=== PATIENT | female | born 1935 | race Caucasian/White ===

== ENCOUNTER → 2016-07-31 | Outpatient (CLI) | payer OTHER, MEDICARE ==
[~2016-07-31] MED LIST: ASPI325T39 PO; CHOLTAB3 PO; CLOP1TAB15 PO; HYD50 PO; MCRK20 PO; METO25TA56 PO; NITR0.4S UT; OMEG10007 PO; SIMV40TA2 PO
[2016-07-31 12:34] LABS: BASO % 0.8 %; BASO ABS # 0.05 K/uL (0-0.2); COMPLETE YES; EOS % 1.8 %; HEMATOCRIT 40.6 % (37-47); IG% 0.3 %; LYMPH % 28.2 %; LYMPH ABS # 1.76 K/uL (1.2-3.4); MEAN CELL VOLUME 89.2 fL (80-100); MEAN CORPUSCULAR HEMOGLOBIN 29.2 pg (25-34); MEAN CORPUSCULAR HGB CONC 32.8 g/dl (32-36); MEAN PLATELET VOLUME 11.7 fL (7.4-10.4); MONO % 9.1 %; NEUT % 59.8 %; PLATELET COUNT 188 K/uL (130-400); RED BLOOD COUNT 4.55 M/uL (4.2-5.4); WHITE BLOOD COUNT 6.24 K/uL (4.8-10.8)
[2016-07-31 15:36] LABS: ESTIMATED AVERAGE GLUCOSE 126 mg/dl; HA1C FLAG Normal (Normal)
[2016-07-31 17:57] LABS: ALB/GLOB RATIO 1.2 (0.9-2); ALKALINE PHOSPHATASE 56 U/L (45-117); AST/SGOT 21 U/L (15-37); BLOOD UREA NITROGEN 20 mg/dl (7-18); BUN/CREATININE RATIO 29.6 (10-20); CALCIUM 9.6 mg/dl (8.5-10.1); CARBON DIOXIDE 28 mmol/L (21-32); CHLORIDE 105 mmol/L (98-107); CREATININE 0.69 mg/dl (0.60-1.20); GLUCOSE 101 mg/dl (70-99); POTASSIUM 4.2 mmol/L (3.5-5.1); SODIUM 139 mmol/L (136-145)
[2016-07-31 18:09] LABS: ALT/SGPT 18 U/L (12-78); CHOLESTEROL 153 mg/dl (0-200); CHOLESTEROL/HDL RATIO 2.7; HDL CHOLESTEROL 57 mg/dl; LDL CHOLESTEROL CALCULATED 61 mg/dl; TRIGLYCERIDES 176 mg/dl (0-150); VERY LOW DENSITY LIPOPROT CALC 35 mg/dl
--- NOTE | 2016-08-15 11:46 | CODING QUERY MEDICAL NECESSITY ---
CQSUPPORTING DIAGNOSIS NEEDED A supporting diagnosis is required for the test/procedure performed on this patient in order for us to be reimbursed by the patient's insurance. Please provide a supporting diagnosis for the following test/procedure listed below next to the test name along with your signature. *If there is no additional diagnosis for this patient that would support the following test/procedure please document that below next to the test/procedure. Test(s)/Procedure(s) that require a supporting diagnosis: DOS 07/31/16 VITAMIN D VITAMIN B12 Provider Signature: Date: Thank you Romi [facility] Once completed, please kindly fax back to [phone] For questions please call [phone]
== END | disposition home or self-care (01) ==
LOC: C.LABPBG 11:22
PROVIDERS: ATTEND Internal Medicine
DX: I70.0 Atherosclerosis of aorta (principal); R73.09 Other abnormal glucose

== ENCOUNTER → 2017-07-11 | Outpatient (CLI) | payer OTHER, MEDICARE ==
[2017-07-11 14:08] LABS: BASO % 0.5 %; BASO ABS # 0.03 K/uL (0-0.2); EOS % 0.8 %; EOS ABS # 0.05 K/uL (0-0.5); HEMATOCRIT 40.2 % (37-47); HEMOGLOBIN 13.3 g/dL (12.0-16.0); IG# 0.01 K/uL (0.00-0.02); LYMPH % 33.6 %; MEAN CELL VOLUME 89.7 fL (80-100); MEAN CORPUSCULAR HEMOGLOBIN 29.7 pg (25-34); MEAN CORPUSCULAR HGB CONC 33.1 g/dl (32-36); MEAN PLATELET VOLUME 11.8 fL (7.4-10.4); MONO % 7.7 %; MONO ABS # 0.48 K/uL (0.11-0.59); NEUT % 57.2 %; NEUT ABS # 3.58 K/uL (1.4-6.5); PLATELET COUNT 193 K/uL (130-400); RED CELL DISTRIBUTION WIDTH CV 12.9 % (11.5-14.5); WHITE BLOOD COUNT 6.25 K/uL (4.8-10.8)
[2017-07-11 16:04] LABS: HEMOGLOBIN A1C 6.3 % (4.5-5.6)
[2017-07-11 16:26] LABS: ALBUMIN 4.2 gm/dl (3.4-5.0); ALT/SGPT 22 U/L (12-78); AST/SGOT 26 U/L (15-37); BLOOD UREA NITROGEN 19 mg/dl (7-18); CALCIUM 9.8 mg/dl (8.5-10.1); CARBON DIOXIDE 28 mmol/L (21-32); CREATININE 0.77 mg/dl (0.60-1.20); GLUCOSE 122 mg/dl (70-99); SODIUM 139 mmol/L (136-145)
[2017-07-11 16:36] LABS: ALKALINE PHOSPHATASE 60 U/L (45-117); TOTAL PROTEIN 7.7 gm/dl (6.4-8.2)
== END | disposition home or self-care (01) ==
LOC: C.LABPBG 07:58
PROVIDERS: ATTEND Internal Medicine
DX: Z00.00 Encounter for general adult medical examination without abnormal findings (principal); I10 Essential (primary) hypertension; G31.84 Mild cognitive impairment of uncertain or unknown etiology; G25.81 Restless legs syndrome; M47.814 Spondylosis without myelopathy or radiculopathy, thoracic region; R73.09 Other abnormal glucose

== ENCOUNTER 2024-02-15 14:08 | Inpatient (IN) ==
--- NOTE | 2024-02-15 14:33 | Emergency Department Note ---
Impression & Plan Sepsis ADMIT ED Provider Note HPI: History obtained from patient's daughter at the bedside. The patient is a 88-year-old female with history of dementia, who presents the emergency department from [facility] with a chief complaint of hypotension and fever. Patient presents with her daughter at the bedside, the [facility], she had a fall out of bed earlier this morning and then later in the afternoon her vital signs were taken and showed that she was hypotensive and tachycardic. Patient was therefore transported to the ER to be assessed for possible sepsis. Patient was given IV fluids en route via EMS and by the time she arrived here to the ER her blood pressure was stable, heart rate is mildly tachycardic. ROS: - Per HPI Differential Diagnosis: Sepsis, pneumonia, urinary tract infection, intracranial hemorrhage, stroke, acute kidney injury/dehydration, amongst other potential pathologies. *Outpatient medications and allergy history reviewed. PE: General: Alert to verbal stimuli, otherwise listless appearing, frail-appearing HEENT: Normocephalic, trachea midline Eyes: Extraocular eye movement is intact, no scleral erythema Pulmonary: Clear to auscultation bilaterally, no wheezing Cardio: Regular rate and rhythm GI: Abdomen is soft to palpation : No suprapubic tenderness MSK: No evidence of trauma or malformation of the extremities, no edema Skin: No evidence of rash Neuro: Alert, responds to verbal commands, no obvious focal deficits Psychiatric: Cooperative INDEPENDENT INTERPRETATIONS: engine monitor: (As interpreted by myself): - An order was placed for continuous cardiac monitoring - Patient was noted to be in sinus tachycardia with a rate of 115 EKG: (As interpreted by myself): Rate: 107 Rhythm: Sinus tachycardia Intervals: Within normal limits ST changes: No ST elevation Time: 1542 Chest x-ray: (As interpreted by myself): No focal infiltrate Interventions provided in ED: -IV fluid bolus, IV cefepime Medical Decision Making: IV was established and lab work obtained, patient was placed on shelter monitor. Patient was given 30 cc/kg of IV fluid for reported hypotension and [facility] with presenting tachycardia and concern for sepsis. Lab work shows a significant leukocytosis at 39.15, hemoglobin is stable at 11.8, platelet count is normal. CMP shows evidence of an acute kidney injury with creatinine elevated at 2.39 (patient has normal baseline) BUN is elevated at 47, lactic acid is 4.4, initial high-sensitivity troponin level is markedly elevated at 1301. EKG does not show any acute ischemic changes per my interpretation, there is no evidence of ST elevation [place]. Procalcitonin is elevated at 75.9, urinalysis shows trace ketones, 3+ blood, 3+ leukocyte esterase and significant pyuria without obvious contamination. Will send for culture and the patient was treated with IV cefepime here in the ED. I suspect the patient is septic probably from urinary tract infection and this is the source of her multiorgan dysfunction. CT imaging of the head was obtained that does not show any evidence of any acute intracranial process. I did discuss all the above findings with the patient's daughter and other family members who are at the bedside on my reevaluation. The patient remains mildly tachycardic with blood pressure greater than 100 systolic on my reassessment. She is frail appearing, given her lab work findings I do of concern that she may decompensate quickly for multiorgan failure. I discussed this with the patient's daughter, she states the patient is DNR/DNI CODE STATUS but they would like interventions up to that point to see if the patient may recover. I discussed all of this with the admitting hospitalist service and the patient was placed for admission in guarded condition to the service of Dr. Padgett. Consultants/Discussions held with other healthcare providers: -HospitalistDr. Padgett Disposition discussion held by myself with: -Patient family at the bedside including the patient's daughter * CRITICAL CARE TIME: ( 49 ) minutes -Management of patient with urosepsis with multiorgan failure requiring aggressive IV fluid resuscitation and initiation of IV antibiotics, time spent at the bedside, interpretation of diagnostic studies, discussion with family in regards to the patient's condition and CODE STATUS. Discussion with other healthcare providers and arrangement of admission. Diagnosis: 1. Urinary tract infection, acute 2. Leukocytosis, acute 3. Lactic acidosis, acute 4. Elevated high-sensitivity troponin, acute 5. Acute kidney injury 7. Elevated procalcitonin 8. CODE STATUS updated to DNR/DNI following discussion with family Disposition: Admission Tomás Orozco DO Emergency Medicine Past Med/Surg History Problem List (Updated 02/15/24 @ 18:42 by Tomás Orozco DO) Sepsis (Acute) Acute kidney injury Urinary tract infection Sepsis Hypercalcemia Dementia (Acute) Diabetes mellitus (Chronic) Mild aortic stenosis (Chronic) Mild cognitive impairment (Chronic) Sensorineural hearing loss of both ears (Chronic) Vitamin D deficiency (Chronic) HTN (hypertension) (Chronic) Hypokalemia (Chronic) Right leg weakness (Chronic) Medical History (Updated 02/15/24 @ 18:42 by Tomás Orozco DO) Stroke Surgical History History of total abdominal hysterectomy and bilateral salpingo-oophorectomy History of tonsillectomy Family History Son No problems noted. Sister Breast cancer Diabetes Mother Dementia Denies family history of Ovarian cancer Prostate cancer Myocardial infarction Colorectal cancer Social History Smoking Status: Never smoker Second Hand Exposure: No; Do You Dip or Chew Tobacco: No; Hx Alcohol Use: No Hx Substance Use: No Preferred Language: Thai Communication Ability: Effective Visual Impairment: No Limitations Hearing Ability: Use of Hearing Aid Beliefs That Will Affect Care: None marital status: Current Living Situation: Alone, [facility] Current Living Situation Comment: [facility] current occupational status: retired Feels Safe at Home: Yes Diet: regular Diet Comment: regular caffeine: Yes during the past year weight has: remained stable Dental Care, Regularly: No Physical Activity Frequency: Does not Exercise Seatbelt Use: always Sunscreen Use: Yes Allergies Allergies Allergy/AdvReac Type Severity Reaction Status Date / Time gabapentin Allergy Verified 06/06/23 13:32 Home Meds Home Medications Medication Instructions Recorded Confirmed cholecalciferol (vitamin D3) 25 1,000 units PO DAILY 01/18/19 02/15/24 mcg (1,000 unit) capsule donepezil 10 mg tablet 10 mg PO HS 01/18/19 02/15/24 omega-3 fatty acids 1,000 mg 2,000 mg PO DAILY 01/18/19 02/15/24 capsule (Fish Oil Concentrate) potassium chloride 20 mEq 40 meq PO DAILY 06/06/23 02/15/24 tablet,extended release(part/cryst) (Klor-Con M) Previous Rx's Medication Instructions Recorded metoprolol tartrate 25 mg tablet 12.5 mg (1/2 x 25 mg) PO BID #90 05/21/19 tabs ropinirole 0.5 mg tablet 0.5 mg PO HS #90 tabs 05/21/19 cyanocobalamin (vitamin B-12) 1,000 mcg PO DAILY #30 caps 08/11/20 1,000 mcg capsule clopidogrel 75 mg tablet (Plavix) 75 mg PO DAILY #30 tabs 03/30/21 metformin 500 mg 24 hr 500 mg PO DAILY #90 tabs 08/10/22 tablet,extended release (gastric retention) simvastatin 40 mg tablet 40 mg PO HS #90 tabs 08/10/22 acetaminophen 500 mg capsule 500 mg PO Q8H PRN fever / fever 03/05/23 #90 caps hydrochlorothiazide 25 mg tablet 50 mg (2 x 25 mg) PO DAILY #90 tabs 06/06/23 Results & Data (ED) Vital Signs Vital Signs - 24 hr 02/15/24 14:18 02/15/24 14:22 02/15/24 14:29 Temperature 36.1 C L Temperature Source Axillary Pulse Rate 110 H 109 H 114 H Pulse Rate [Apical] Pulse Rate from SpO2 Sensor Respiratory Rate 24 18 Respiratory Effort / Characteristics Respiratory Depth Blood Pressure 113/62 Blood Pressure [Right Arm] Blood Pressure Mean 79 Blood Pressure Mean [Right Arm] Pulse Oximetry 97 Oxygen Delivery Method Room Air Sepsis Recent Fever Within 48 Hours Yes Sepsis New/Unexplained Change in Mental Status No Sepsis Action Taken by Nursing No Action Required 02/15/24 14:30 02/15/24 14:39 02/15/24 14:45 Temperature Temperature Source Pulse Rate 107 H Pulse Rate [Apical] 107 H Pulse Rate from SpO2 Sensor 107 H Respiratory Rate 25 H 18 Respiratory Effort / Characteristics Respiratory Depth Blood Pressure Blood Pressure [Right Arm] 93/53 L Blood Pressure Mean Blood Pressure Mean [Right Arm] 66 Pulse Oximetry 98 94 Oxygen Delivery Method Room Air Room Air Sepsis Recent Fever Within 48 Hours Sepsis New/Unexplained Change in Mental Status Sepsis Action Taken by Nursing 02/15/24 14:48 02/15/24 15:18 02/15/24 15:19 Temperature Temperature Source Pulse Rate 113 H 105 H Pulse Rate [Apical] Pulse Rate from SpO2 Sensor 116 H 105 H Respiratory Rate 32 H 29 H Respiratory Effort / Characteristics Respiratory Depth Blood Pressure 101/60 Blood Pressure [Right Arm] Blood Pressure Mean 84 Blood Pressure Mean [Right Arm] Pulse Oximetry 94 98 Oxygen Delivery Method Sepsis Recent Fever Within 48 Hours Sepsis New/Unexplained Change in Mental Status Sepsis Action Taken by Nursing 02/15/24 15:24 02/15/24 15:25 02/15/24 15:31 Temperature Temperature Source Pulse Rate 108 H Pulse Rate [Apical] 113 H Pulse Rate from SpO2 Sensor 105 H Respiratory Rate 22 20 Respiratory Effort / Characteristics Respiratory Depth Normal Blood Pressure Blood Pressure [Right Arm] 101/60 Blood Pressure Mean 61 Blood Pressure Mean [Right Arm] 73 Pulse Oximetry 97 Oxygen Delivery Method Room Air Sepsis Recent Fever Within 48 Hours Sepsis New/Unexplained Change in Mental Status Sepsis Action Taken by Nursing 02/15/24 15:31 02/15/24 15:31 02/15/24 15:36 Temperature Temperature Source Pulse Rate 110 H Pulse Rate [Apical] Pulse Rate from SpO2 Sensor 110 H Respiratory Rate 21 Respiratory Effort / Characteristics Respiratory Depth Blood Pressure Blood Pressure [Right Arm] Blood Pressure Mean 61 61 Blood Pressure Mean [Right Arm] Pulse Oximetry 99 Oxygen Delivery Method Sepsis Recent Fever Within 48 Hours Sepsis New/Unexplained Change in Mental Status Sepsis Action Taken by Nursing 02/15/24 15:42 02/15/24 15:45 02/15/24 15:57 Temperature Temperature Source Pulse Rate 112 H 110 H Pulse Rate [Apical] Pulse Rate from SpO2 Sensor 106 H 105 H Respiratory Rate 26 H 20 Respiratory Effort / Characteristics Respiratory Depth Blood Pressure 115/92 Blood Pressure [Right Arm] Blood Pressure Mean 102 Blood Pressure Mean [Right Arm] Pulse Oximetry 100 94 Oxygen Delivery Method Sepsis Recent Fever Within 48 Hours Sepsis New/Unexplained Change in Mental Status Sepsis Action Taken by Nursing 02/15/24 16:00 02/15/24 16:06 02/15/24 16:15 Temperature Temperature Source Pulse Rate 118 H Pulse Rate [Apical] Pulse Rate from SpO2 Sensor 110 H Respiratory Rate 23 Respiratory Effort / Characteristics Respiratory Depth Blood Pressure 106/45 L 92/75 L Blood Pressure [Right Arm] Blood Pressure Mean 63 81 Blood Pressure Mean [Right Arm] Pulse Oximetry 90 Oxygen Delivery Method Sepsis Recent Fever Within 48 Hours Sepsis New/Unexplained Change in Mental Status Sepsis Action Taken by Nursing 02/15/24 16:27 02/15/24 16:28 02/15/24 16:28 Temperature Temperature Source Pulse Rate 122 H Pulse Rate [Apical] Pulse Rate from SpO2 Sensor 112 H Respiratory Rate 28 H Respiratory Effort / Characteristics Respiratory Depth Blood Pressure 102/82 102/82 Blood Pressure [Right Arm] Blood Pressure Mean 92 92 Blood Pressure Mean [Right Arm] Pulse Oximetry 91 Oxygen Delivery Method Sepsis Recent Fever Within 48 Hours Sepsis New/Unexplained Change in Mental Status Sepsis Action Taken by Nursing 02/15/24 16:30 02/15/24 16:30 02/15/24 16:33 Temperature Temperature Source Pulse Rate 115 H 114 H Pulse Rate [Apical] 115 H Pulse Rate from SpO2 Sensor 120 H 110 H Respiratory Rate 25 H 32 H 23 Respiratory Effort / Characteristics Short of Breath Respiratory Depth Blood Pressure 118/56 L Blood Pressure [Right Arm] 118/56 L Blood Pressure Mean 76 Blood Pressure Mean [Right Arm] 76 Pulse Oximetry 91 90 Oxygen Delivery Method Room Air Sepsis Recent Fever Within 48 Hours Sepsis New/Unexplained Change in Mental Status Sepsis Action Taken by Nursing 02/15/24 16:42 02/15/24 16:45 02/15/24 16:46 Temperature Temperature Source Pulse Rate 122 H Pulse Rate [Apical] 120 H Pulse Rate from SpO2 Sensor Respiratory Rate 32 H 26 H Respiratory Effort / Characteristics Respiratory Depth Blood Pressure 98/71 L Blood Pressure [Right Arm] 98/71 L Blood Pressure Mean 84 Blood Pressure Mean [Right Arm] 80 Pulse Oximetry 91 Oxygen Delivery Method Room Air Sepsis Recent Fever Within 48 Hours Sepsis New/Unexplained Change in Mental Status Sepsis Action Taken by Nursing 02/15/24 16:51 02/15/24 17:00 02/15/24 17:00 Temperature Temperature Source Pulse Rate 133 H 120 H Pulse Rate [Apical] 118 H Pulse Rate from SpO2 Sensor Respiratory Rate 23 28 H 31 H Respiratory Effort / Characteristics Respiratory Depth Blood Pressure Blood Pressure [Right Arm] 114/58 L Blood Pressure Mean Blood Pressure Mean [Right Arm] 76 Pulse Oximetry 91 96 Oxygen Delivery Method Sepsis Recent Fever Within 48 Hours Sepsis New/Unexplained Change in Mental Status Sepsis Action Taken by Nursing 02/15/24 17:06 02/15/24 17:06 02/15/24 17:15 Temperature Temperature Source Pulse Rate 117 H Pulse Rate [Apical] Pulse Rate from SpO2 Sensor 112 H Respiratory Rate 25 H Respiratory Effort / Characteristics Respiratory Depth Blood Pressure 79/52 L 110/64 Blood Pressure [Right Arm] Blood Pressure Mean 54 79 Blood Pressure Mean [Right Arm] Pulse Oximetry Oxygen Delivery Method Sepsis Recent Fever Within 48 Hours Sepsis New/Unexplained Change in Mental Status Sepsis Action Taken by Nursing 02/15/24 17:18 02/15/24 17:24 02/15/24 17:30 Temperature Temperature Source Pulse Rate 116 H 118 H Pulse Rate [Apical] Pulse Rate from SpO2 Sensor 114 H 112 H Respiratory Rate 28 H 22 Respiratory Effort / Characteristics Respiratory Depth Blood Pressure 101/62 Blood Pressure [Right Arm] Blood Pressure Mean 84 Blood Pressure Mean [Right Arm] Pulse Oximetry 98 99 Oxygen Delivery Method Sepsis Recent Fever Within 48 Hours Sepsis New/Unexplained Change in Mental Status Sepsis Action Taken by Nursing 02/15/24 17:45 02/15/24 17:57 02/15/24 18:00 Temperature Temperature Source Pulse Rate 118 H Pulse Rate [Apical] 119 H 115 H Pulse Rate from SpO2 Sensor 118 H Respiratory Rate 27 H 20 Respiratory Effort / Characteristics Respiratory Depth Blood Pressure Blood Pressure [Right Arm] 103/54 L 102/55 L Blood Pressure Mean Blood Pressure Mean [Right Arm] 70 70 Pulse Oximetry 94 93 93 Oxygen Delivery Method Room Air Room Air Sepsis Recent Fever Within 48 Hours Sepsis New/Unexplained Change in Mental Status Sepsis Action Taken by Nursing 02/15/24 18:00 02/15/24 18:00 02/15/24 18:08 Temperature Temperature Source Pulse Rate 117 H 86 Pulse Rate [Apical] Pulse Rate from SpO2 Sensor 117 H Respiratory Rate 27 H Respiratory Effort / Characteristics Respiratory Depth Blood Pressure 102/55 L Blood Pressure [Right Arm] Blood Pressure Mean 64 Blood Pressure Mean [Right Arm] Pulse Oximetry 92 Oxygen Delivery Method Sepsis Recent Fever Within 48 Hours Sepsis New/Unexplained Change in Mental Status Sepsis Action Taken by Nursing Laboratory Data 02/15/24 15:17 02/15/24 15:17 Lab Results 02/15/24 02/15/24 02/15/24 Range/Units 15:17 15:49 15:53 WBC 39.15 H* (4.8-10.8) K/ul RBC 4.10 L (4.20-5.40) M/uL Hgb 11.8 L (12.0-16.0) g/dl Hct 35.6 L (37.0-47.0) % MCV 86.8 (80.0-100.0) fL MCH 28.8 (25.0-34.0) pg MCHC 33.1 (32.0-36.0) g/dL RDW Std Deviation 43.3 (36.4-46.3) fL RDW Coeff of Ruben 13.6 (11.5-14.5) % Plt Count 163 (130-400) K/uL MPV 11.7 (9.4-12.4) fL Immature Gran % (Auto) 1.7 % Neut % (Auto) 90.8 % Lymph % (Auto) 2.2 % Reeves % (Auto) 5.1 % Eos % (Auto) 0.0 % Baso % (Auto) 0.2 % Neut # (Auto) 35.55 H (1.40-6.50) K/uL Lymph # (Auto) 0.85 L (1.20-3.40) K/uL Reeves # (Auto) 1.98 H (0.11-0.59) K/uL Eos # (Auto) 0.01 (0.00-0.50) K/uL Baso # (Auto) 0.09 (0.00-0.20) K/uL Immature Gran # (Auto) 0.67 H (0.01-0.20) K/uL Sodium 138 (136-145) mmol/L Potassium 3.5 (3.5-5.1) mmol/L Chloride 102 (98-107) mmol/L Carbon Dioxide 25 (21-32) mmol/L Anion Gap 11 (3-11) BUN 47 H (6-23) mg/dl Creatinine 2.39 H (0.6-1.2) mg/dl Est Cr Clr Drug Dosing 12.7 ml/min eGFR 18.93 BUN/Creatinine Ratio 19.7 (10-20) Glucose 226 H (70-99(Fasting)) mg/dl Lactate 4.4 H* (0.4-2.0) mmol/L Calcium 9.2 (8.6-10.3) mg/dl Magnesium 1.6 L (1.7-2.4) mg/dl Total Bilirubin 0.5 (0.2-1.0) mg/dl Direct Bilirubin 0.1 (0-0.2) mg/dl AST 30 (13-39) U/L ALT 15 (7-52) U/L Alkaline Phosphatase 57 (34-104) U/L Troponin I High Sens 1301.1 H* (0-14) pg/ml Total Protein 6.5 (6.0-8.3) gm/dl Albumin 3.6 (3.4-5.0) gm/dl Procalcitonin 75.90 H (0-0.5) ng/ml Urine Color Yellow Urine Appearance Turbid A (Clear) Urine pH 7.0 (4.5-7.5) Ur Specific Jefferson 1.019 (1.000-1.030) Urine Protein 3+ H (Negative) Urine Glucose (UA) Negative (Negative) Urine Ketones Trace H (Negative) Urine Blood 3+ H (Negative) Urine Nitrite Negative (Negative) Urine Bilirubin Negative (Negative) Urine Urobilinogen Negative (Negative) Ur Leukocyte Esterase 3+ H (Negative) Urine WBC (Auto) >50 H (0-5) /hpf Urine RBC (Auto) 11-20 H (0-2) /hpf U Hyaline Cast (Auto) >20 H (0-2) /lpf U Epithel Cells (Auto) 0-2 (0-2) /hpf Urine Bacteria (Auto) 4+ H (None Seen) Urine Yeast Present A (None Prsent) Adenovirus (PCR) Not Detected (NotDetected) B. pertussis DNA (PCR) Not Detected (NotDetected) B.parapertussis DNA PCR Not Detected (NotDetected) C. pneumoniae DNA (PCR) Not Detected (NotDetected) Coronavirus OC43 (PCR) Not Detected (NotDetected) Coronavirus HKU1 (PCR) Not Detected (NotDetected) Coronavirus 229E (PCR) Not Detected (NotDetected) SARS-CoV-2 (PCR) Not Detected (NotDetected) Coronavirus NL63 (PCR) Not Detected (NotDetected) Human Metapneumovir PCR Not Detected (NotDetected) Influenza Type A (PCR) Not Detected (NotDetected) Influenza Type B (PCR) Not Detected (NotDetected) M. pneumoniae (PCR) Not Detected (NotDetected) Parainfluenza 1 (PCR) Not Detected (NotDetected) Parainfluenza 2 (PCR) Not Detected (NotDetected) Parainfluenza 3 (PCR) Not Detected (NotDetected) Parainfluenza 4 (PCR) Not Detected (NotDetected) RSV (PCR) Not Detected (NotDetected) Entero/Rhino (PCR) Not Detected (NotDetected) 02/15/24 Range/Units 17:47 WBC (4.8-10.8) K/ul RBC (4.20-5.40) M/uL Hgb (12.0-16.0) g/dl Hct (37.0-47.0) % MCV (80.0-100.0) fL MCH (25.0-34.0) pg MCHC (32.0-36.0) g/dL RDW Std Deviation (36.4-46.3) fL RDW Coeff of Ruben (11.5-14.5) % Plt Count (130-400) K/uL MPV (9.4-12.4) fL Immature Gran % (Auto) % Neut % (Auto) % Lymph % (Auto) % Reeves % (Auto) % Eos % (Auto) % Baso % (Auto) % Neut # (Auto) (1.40-6.50) K/uL Lymph # (Auto) (1.20-3.40) K/uL Reeves # (Auto) (0.11-0.59) K/uL Eos # (Auto) (0.00-0.50) K/uL Baso # (Auto) (0.00-0.20) K/uL Immature Gran # (Auto) (0.01-0.20) K/uL Sodium (136-145) mmol/L Potassium (3.5-5.1) mmol/L Chloride (98-107) mmol/L Carbon Dioxide (21-32) mmol/L Anion Gap (3-11) BUN (6-23) mg/dl Creatinine (0.6-1.2) mg/dl Est Cr Clr Drug Dosing ml/min eGFR BUN/Creatinine Ratio (10-20) Glucose (70-99(Fasting)) mg/dl Lactate 2.1 H* (0.4-2.0) mmol/L Calcium (8.6-10.3) mg/dl Magnesium (1.7-2.4) mg/dl Total Bilirubin (0.2-1.0) mg/dl Direct Bilirubin (0-0.2) mg/dl AST (13-39) U/L ALT (7-52) U/L Alkaline Phosphatase (34-104) U/L Troponin I High Sens 1159.7 H* (0-14) pg/ml Total Protein (6.0-8.3) gm/dl Albumin (3.4-5.0) gm/dl Procalcitonin (0-0.5) ng/ml Urine Color Urine Appearance (Clear) Urine pH (4.5-7.5) Ur Specific Jefferson (1.000-1.030) Urine Protein (Negative) Urine Glucose (UA) (Negative) Urine Ketones (Negative) Urine Blood (Negative) Urine Nitrite (Negative) Urine Bilirubin (Negative) Urine Urobilinogen (Negative) Ur Leukocyte Esterase (Negative) Urine WBC (Auto) (0-5) /hpf Urine RBC (Auto) (0-2) /hpf U Hyaline Cast (Auto) (0-2) /lpf U Epithel Cells (Auto) (0-2) /hpf Urine Bacteria (Auto) (None Seen) Urine Yeast (None Prsent) Adenovirus (PCR) (NotDetected) B. pertussis DNA (PCR) (NotDetected) B.parapertussis DNA PCR (NotDetected) C. pneumoniae DNA (PCR) (NotDetected) Coronavirus OC43 (PCR) (NotDetected) Coronavirus HKU1 (PCR) (NotDetected) Coronavirus 229E (PCR) (NotDetected) SARS-CoV-2 (PCR) (NotDetected) Coronavirus NL63 (PCR) (NotDetected) Human Metapneumovir PCR (NotDetected) Influenza Type A (PCR) (NotDetected) Influenza Type B (PCR) (NotDetected) M. pneumoniae (PCR) (NotDetected) Parainfluenza 1 (PCR) (NotDetected) Parainfluenza 2 (PCR) (NotDetected) Parainfluenza 3 (PCR) (NotDetected) Parainfluenza 4 (PCR) (NotDetected) RSV (PCR) (NotDetected) Entero/Rhino (PCR) (NotDetected) Administered Medications Discontinued Medications Sodium Chloride (Nss) 1,000 mls @ 999 mls/hr IV .Q1H1M DENNIS Stop: 02/15/24 15:30 Last Infusion: 02/15/24 15:51 Dose: Infused Documented By: Admin: 02/15/24 14:34 Dose: 999 mls/hr Documented By: CHARLA Sodium Chloride (Nss) 1,000 mls @ 999 mls/hr IV .Q1H1M ONE Stop: 02/15/24 16:38 Last Infusion: 02/15/24 17:11 Dose: Infused Documented By: Admin: 02/15/24 15:53 Dose: 999 mls/hr Documented By: HEIDI Cefepime HCl (Maxipime 2000mg) 2,000 mg in 20 mls @ 5 mls/min IV NOW STA; Protocol Stop: 02/15/24 15:42 Last Admin: 02/15/24 15:54 Dose: 5 mls/min Documented By: HEIDI Acetaminophen (Ofirmev) 1,000 mg in 100 mls @ 400 mls/hr IV NOW STA Stop: 02/15/24 17:26 Last Infusion: 02/15/24 17:47 Dose: Infused Documented By: Admin: 02/15/24 17:25 Dose: 400 mls/hr Documented By: HEIDI Imaging Data Radiologist's Impression: Chest X-Ray 02/15/24 14:30 XR chest 1V portable CLINICAL HISTORY: Sepsis. COMPARISON STUDY: Chest radiograph March 04, 2023. FINDINGS: An old, healed right humeral head fracture is incidentally noted. There is no pneumothorax or pleural effusion. Cardiomediastinal silhouette is stable. There is a small hiatal hernia. There is no consolidation to suggest pneumonia. Mild interstitial thickening is likely chronic. IMPRESSION: No acute cardiopulmonary findings. No significant change in appearance of the chest. ACT 112: Negative or not required by law. Electronically signed by: Devante Sims M.D. 02/15/2024 3:[address] 02/15/24 14:32 CT OF THE HEAD WITHOUT CONTRAST CLINICAL HISTORY: Altered mental status. COMPARISON STUDY: MRI of the brain August 18, 2013. Head CT February 15, 2023. CT DOSE: 625.8 mGy.cm TECHNIQUE: Helical axial images of the head were obtained without IV contrast. Automated exposure control was utilized for the study. A dose lowering technique was utilized adhering to the principles of ALARA. FINDINGS: This exam is mildly compromised given difficulty positioning. No acute intracranial hemorrhage, midline shift or mass effect is present. The ventricular system is stable. The basal cisterns are patent. There are no extra- axial collections. A small left forehead contusion is present. There is no calvarial fracture. There is mild sinus mucosal thickening. IMPRESSION: No acute intracranial findings. Exam mildly compromised given difficulty positioning. No change in appearance of the brain. ACT 112: Negative or not required by law. Electronically signed by: Devante Sims M.D. 02/15/2024 3:33 PM Discharge Plan Visit Data Chief Complaint: Altered Mental Status Stated Complaint: Altered Mental Status ED Provider: Tomás Orozco Discharge Problem: Sepsis Forms Stand Alone Forms: [facility] [email or web address] Prescriptions Prescriptions: No Action metoprolol tartrate 25 mg tablet 12.5 mg PO BID Qty: 90 1RF ropinirole 0.5 mg tablet 0.5 mg PO HS Qty: 90 1RF Rx Instructions: Take 1 tablet by mouth 1 hour before bed daily cyanocobalamin (vitamin B-12) 1,000 mcg capsule 1,000 mcg PO DAILY Qty: 30 0RF metformin 500 mg tablet,ER rosaura.retention 24 hr 500 mg PO DAILY Qty: 90 3RF simvastatin 40 mg tablet 40 mg PO HS Qty: 90 3RF acetaminophen 500 mg capsule 500 mg PO Q8H PRN (Reason: fever / fever) Qty: 90 2RF donepezil 10 mg tablet 10 mg PO HS omega-3 fatty acids [Fish Oil Concentrate] 1,000 mg capsule 2,000 mg PO DAILY cholecalciferol (vitamin D3) 1,000 unit capsule 1,000 units PO DAILY clopidogrel [Plavix] 75 mg tablet 75 mg PO DAILY Qty: 30 2RF potassium chloride [Klor-Con M20] 20 mEq tablet,ER particles/crystals 40 meq PO DAILY hydrochlorothiazide 25 mg tablet 50 mg PO DAILY Qty: 90 1RF Referrals Referrals: Octaviano Vasquez CRNP [Primary Care Provider] - Discharge Problem: Sepsis Qualifiers: Sepsis type: sepsis due to unspecified organism Sepsis acute organ dysfunction status: with acute organ dysfunction Severe sepsis acute organ dysfunction type: acute renal failure Acute renal failure type: unspecified Severe sepsis shock status: without septic shock Qualified Code(s): A41.9 - Sepsis, unspecified organism; R65.20 - Severe sepsis without septic shock; N17.9 - Acute kidney failure, unspecified
[2024-02-15] MEDS: SODIUM CHLORIDE 0.9% 1,000 ML IV SCH (14:34)
--- NOTE | 2024-02-15 15:34 | CT Scan Report ---
CT OF THE HEAD WITHOUT CONTRAST CLINICAL HISTORY: Altered mental status. COMPARISON STUDY: MRI of the brain August 18, 2013. Head CT February 15, 2023. CT DOSE: 625.8 mGy.cm TECHNIQUE: Helical axial images of the head were obtained without IV contrast. Automated exposure con trol was utilized for the study. A dose lowering technique was utilized adhering to the principles o f ALARA. FINDINGS: This exam is mildly compromised given difficulty positioning. No acute intracranial hemorrh age, midline shift or mass effect is present. The ventricular system is stable. The basal cisterns ar e patent. There are no extra-axial collections. A small left forehead contusion is present. There is no calvarial fracture. There is mild sinus mucosal thickening. IMPRESSION: No acute intracranial findings. Exam mildly compromised given difficulty positioning. No change in appearance of the brain. ACT 112: Negative or not required by law. Electronically signed by: Devante Sims M.D. 02/15/2024 3:33 PM
[2024-02-15 15:40] LABS: Hematocrit (blood only) 35.6 % (37.0-47.0); Hemoglobin 11.8 g/dl (12.0-16.0); Mean Corpuscular Hemoglobin 28.8 pg (25.0-34.0); Mean Corpuscular Hgb Conc 33.1 g/dL (32.0-36.0); Mean Corpuscular Volume 86.8 fL (80.0-100.0); Mean Platelet Volume 11.7 fL (9.4-12.4); Platelet Count 163 K/uL (130-400); RDW Coefficient of Variation 13.6 % (11.5-14.5); RDW Standard Deviation 43.3 fL (36.4-46.3); White Blood Count 39.15 K/ul (4.8-10.8)
[2024-02-15] MEDS: SODIUM CHLORIDE 0.9% 1,000 ML IV ONE (15:53)
[2024-02-15 15:54] LABS: Basophils # (auto) 0.09 K/uL (0.00-0.20); Basophils % (auto) 0.2 %; Eosinophils # (auto) 0.01 K/uL (0.00-0.50); Immature Granulocytes # (auto) 0.67 K/uL (0.01-0.20); Immature Granulocytes % (auto) 1.7 %; Lymphocytes # (auto) 0.85 K/uL (1.20-3.40); Lymphocytes % (auto) 2.2 %; Monocytes # (auto) 1.98 K/uL (0.11-0.59); Monocytes % (auto) 5.1 %; Neutrophils # (auto) 35.55 K/uL (1.40-6.50); Neutrophils % (auto) 90.8 %
[2024-02-15] MEDS: CEFEPIME 2000MG 2,000 MG/20 ML SYR IV STA (15:54)
--- NOTE | 2024-02-15 15:56 | XRay Report ---
XR chest 1V portable CLINICAL HISTORY: Sepsis. COMPARISON STUDY: Chest radiograph March 04, 2023. FINDINGS: An old, healed right humeral head fracture is incidentally noted. There is no pneumothorax or pleural effusion. Cardiomediastinal silhouette is stable. There is a small hiatal hernia. There is no consolidation to suggest pneumonia. Mild interstitial thickening is likely chronic. IMPRESSION: No acute cardiopulmonary findings. No significant change in appearance of the chest. ACT 112: Negative or not required by law. Electronically signed by: Devante Sims M.D. 02/15/2024 3:55 PM
[2024-02-15 16:04] LABS: Albumin Level 3.6 gm/dl (3.4-5.0); BUN Creatinine Ratio 19.7 (10-20); Bilirubin Direct 0.1 mg/dl (0-0.2); Bilirubin,Total 0.5 mg/dl (0.2-1.0); Calcium 9.2 mg/dl (8.6-10.3); Creatinine Clr Calc Pharmacy 12.7 ml/min; Magnesium 1.6 mg/dl (1.7-2.4); Potassium 3.5 mmol/L (3.5-5.1); Total Protein 6.5 gm/dl (6.0-8.3)
[2024-02-15 16:19] LABS: Troponin I High Sensitivity 1301.1 pg/ml (0-14)
[2024-02-15 16:30] LABS: Appearance Urine Turbid (Clear); Bacteria Urine Automated 4+ (None Seen); Bilirubin Urine Negative (Negative); Blood Urine 3+ (Negative); Cast Urine Automated >20 /lpf (0-2); Color Urine Yellow; Epithelial Cell Urine Auto 0-2 /hpf (0-2); Glucose Urine UA Negative (Negative); Ketones Urine Trace (Negative); Leukocyte Esterase Urine 3+ (Negative); Nitrite Urine Negative (Negative); Protein Urine 3+ (Negative); Specific Gravity Urine 1.019 (1.000-1.030); Urobilinogen Urine Negative (Negative); WBC Urine Automated >50 /hpf (0-5)
[2024-02-15 16:54] LABS: Adenovirus PCR Not Detected (NotDetected); Bordetella parapertussis PCR Not Detected (NotDetected); Bordetella pertussis PCR Not Detected (NotDetected); Chlamydia pneumoniae PCR Not Detected (NotDetected); Coronavirus 229E PCR Not Detected (NotDetected); Coronavirus CoV-2 (COVID19)PCR Not Detected (NotDetected); Coronavirus HKU1 PCR Not Detected (NotDetected); Coronavirus NL63 PCR Not Detected (NotDetected); Coronavirus OC43PCR Not Detected (NotDetected); Human Metapneumovirus PCR Not Detected (NotDetected); Influenza A PCR Not Detected (NotDetected); Influenza B PCR Not Detected (NotDetected); Mycoplasma pneumoniae PCR Not Detected (NotDetected); Parainfluenza Virus 1 PCR Not Detected (NotDetected); Parainfluenza Virus 2 PCR Not Detected (NotDetected); Parainfluenza Virus 3 PCR Not Detected (NotDetected); Parainfluenza Virus 4 PCR Not Detected (NotDetected); Respiratory Syncytial VirusPCR Not Detected (NotDetected); Rhinovirus/Enterovirus PCR Not Detected (NotDetected)
--- NOTE | 2024-02-15 17:18 | History & Physical Report ---
Date of Service February 15, 2024 Assessment & Plan (1) Sepsis: Plan: SIRS: WBC 39.15, temp 36.1, HR 114 - Likely source: Urine; UA shows turbid urine, 3+ protein, trace ketones, 3+ blood, 3+ leukocyte esterase, > 50 WBC, 11-20 RBC, > 20 hyaline cast, 4+ bacteria, presence of yeast - Admit PCU - Received >30cc/kg per sepsis protocol; Calculated to receive 1363.5 mL; actually received 2000 mL while in ED, 600mL in field (total 2600mL) - CBC: WBC 39.15 with left shift (35.55), H&H 11.8/35.6 - CMP: Cr 2.39, BUN 47, glucose 226 - Lactate 4.4, procalcitonin 75.9, magnesium 1.6 - Troponin 1301.1, EKG without ischemic changes; pending repeat troponin - Pending blood and urine cultures - Cefepime 2 g twice daily - CBC, BMP a.m. (2) Urinary tract infection: Plan: UA with signs of infection (as above) - Unable to express symptomatology 2/2 dementia - No reported h/o pseudomonas - No CTAP at this time - Continue cefepime 2g - Pending culture (3) Acute kidney injury: Plan: Baseline creatinine 0.7-0.9 - Cr at admission 2.39, BUN 47 - Received IV fluids per sepsis protocol - BMP a.m. (4) Dementia: Plan: Resides at [facility] - At baseline cognitive function per family - Continue donepezil - Ancillary therapy: Increase familiarity of setting as able + promote good sleep hygiene (melatonin) (5) Diabetes mellitus: Plan: T2DM, insulin reuben - On metformin 500 mg daily at home - A1c 6.2% (06/07) - SSI with target BSG range 120-160 mg/dL, CF 30, carb ratio 10 - BG ACHS - Adjust regimen as needed (6) HTN (hypertension): Plan: Hypotensive upon arrival; repeat BP is increasing slightly - Metoprolol tartrate 25 mg daily - HCTZ 50 mg daily; Hold 2/2 CLARKE (7) Elevated troponin: Plan HLD- Simvastatin 40 mg RLS- Ropinirole 0.5 mg - On plavix 75mg Not for escalation of care to vasopressors; DNR/DNI. Dispo: Admit VTE Prophylaxis: SCDs Code: DNR/DNI Admission and Anticipated Discharge Date Admission Date: 02/15/2024 History of Present Illness Primary Care Provider: RICHARD Lackey Patient is a 88-year-old female presenting from [facility] secondary to ongoing fever and a recent fall out of her chair this a.m. Vitals were found to be hypotensive but tachycardic when EMS arrived. ED course: CBC- WBC 39.15 with left shift (35.55), H&H 11.8/35.6, lymphs 0.85, monocytes 1.98, immature granulocytes 0.67; CMP-BUN 47, creatinine 2.39, glucose 226; lactate 4.4; magnesium 1.6; troponin 1301.1; procalcitonin 75.9; UA shows turbid urine, 3+ protein, trace ketones, 3+ blood, 3+ leukocyte esterase, > 50 WBC, 11-20 RBC, > 20 hyaline cast, 4+ bacteria, presence of yeast; BioFire negative.; Chest x-ray without acute findings, head CT without acute findings.; EKG showing no ST elevation or depression. Patient is an 88-year-old female PMHx dementia, diabetes, hypertension, aortic stenosis, and chronic electrolyte disturbances presenting for ongoing fever x 3 days. Pt resides at [facility] and noted to have a worsening fever for the past 3 days with Tmax 103F the evening prior to arrival. Pt also reported to have fallen out of her chair on the day of arrival, leaving her with an abrasion on her L forehead and L knee. Pt is unable to provide a history due to dementia. Please see Dr. Padgett's attestation for adjustments/additions to treatment plan. Allergies Allergy/AdvReac Type Severity Reaction Status Date / Time gabapentin Allergy Verified 06/06/23 13:32 Home Medications Medication Instructions Recorded Confirmed Type cholecalciferol (vitamin D3) 25 1,000 units PO DAILY 01/18/19 02/15/24 History mcg (1,000 unit) capsule donepezil 10 mg tablet 10 mg PO HS 01/18/19 02/15/24 History omega-3 fatty acids 1,000 mg 2,000 mg PO DAILY 01/18/19 02/15/24 History capsule (Fish Oil Concentrate) metoprolol tartrate 25 mg tablet 12.5 mg (1/2 x 25 mg) PO BID #90 05/21/19 02/15/24 Rx tabs ropinirole 0.5 mg tablet 0.5 mg PO HS #90 tabs 05/21/19 02/15/24 Rx cyanocobalamin (vitamin B-12) 1,000 mcg PO DAILY #30 caps 08/11/20 02/15/24 Rx 1,000 mcg capsule clopidogrel 75 mg tablet (Plavix) 75 mg PO DAILY #30 tabs 03/30/21 02/15/24 Rx metformin 500 mg 24 hr 500 mg PO DAILY #90 tabs 08/10/22 02/15/24 Rx tablet,extended release (gastric retention) simvastatin 40 mg tablet 40 mg PO HS #90 tabs 08/10/22 02/15/24 Rx acetaminophen 500 mg capsule 500 mg PO Q8H PRN fever / fever 03/05/23 02/15/24 Rx #90 caps hydrochlorothiazide 25 mg tablet 50 mg (2 x 25 mg) PO DAILY #90 tabs 06/06/23 02/15/24 Rx potassium chloride 20 mEq 40 meq PO DAILY 06/06/23 02/15/24 History tablet,extended release(part/cryst) (Klor-Con M) Past Med/Surg History Problem List (Updated 02/16/24 @ 08:08 by Fritz Padgett MD) Elevated troponin Sepsis (Acute) Acute kidney injury Urinary tract infection Sepsis Hypercalcemia Dementia (Acute) Diabetes mellitus (Chronic) Mild aortic stenosis (Chronic) Mild cognitive impairment (Chronic) Sensorineural hearing loss of both ears (Chronic) Vitamin D deficiency (Chronic) HTN (hypertension) (Chronic) Hypokalemia (Chronic) Right leg weakness (Chronic) Medical History (Updated 02/16/24 @ 08:08 by Fritz Padgett MD) Stroke Surgical History History of total abdominal hysterectomy and bilateral salpingo-oophorectomy History of tonsillectomy Family History Son No problems noted. Sister Breast cancer Diabetes Mother Dementia Denies family history of Ovarian cancer Prostate cancer Myocardial infarction Colorectal cancer Social History Smoking Status: Unknown if ever smoked Second Hand Exposure: No; Do You Dip or Chew Tobacco: No; Hx Alcohol Use: No Hx Substance Use: No Preferred Language: Micronesian Communication Ability: Unable Visual Impairment: No Limitations Hearing Ability: Use of Hearing Aid Receiving Dock Checker Required: No Beliefs That Will Affect Care: None marital status: Current Living Situation: Intermediate Current Living Situation Comment: [facility] current occupational status: retired Other Information That Helps Us Care for You: No Feels Safe at Home: Yes Diet: regular Diet Comment: regular caffeine: Yes during the past year weight has: remained stable Dental Care, Regularly: No Physical Activity Frequency: Does not Exercise Seatbelt Use: always Sunscreen Use: Yes Review of Systems Review of Systems: Unobtainable due to cognitive status Physical Exam Physical Exam: General: Sleeping in bed, no acute distress Skin: Warm and dry Head: Normocephalic, atraumatic Eyes: PERRL, conjunctivae clear, sclera non-icteric; crusting at eyelids ENT: External ear and ear canal without swelling Neck: Supple, no LAD Cardio: Systolic murmur, tachycardic, no M/G/R, S1 and S2 normal Resp: No respiratory distress, Lungs CTA in all lobes bilaterally; no wheezes, rales, or rhonchi Abdomen: Soft, symmetric, nontender MSK: No deformities; pulses palpable and equal; no edema. Neuro: Opens eyes to voice Psych: Sleeping. Four family members present in room at time of visit. Results & Data Results & Data Vital Signs (Past 12 Hours) Vital Signs Temp Pulse Pulse Resp BP BP Pulse Ox 02/15/24 17:00 118 H 28 H 114/58 L 96 02/15/24 16:45 120 H 26 H 98/71 L 91 02/15/24 16:30 115 H 32 H 118/56 L 90 02/15/24 16:30 115 H 25 H 118/56 L 91 02/15/24 16:28 102/82 02/15/24 16:28 102/82 02/15/24 16:27 122 H 28 H 91 02/15/24 16:15 118 H 23 90 02/15/24 16:06 92/75 L 02/15/24 16:00 106/45 L 02/15/24 15:57 110 H 20 94 02/15/24 15:45 115/92 02/15/24 15:42 112 H 26 H 100 02/15/24 15:36 110 H 21 99 02/15/24 15:25 113 H 20 101/60 97 02/15/24 15:24 108 H 22 02/15/24 15:19 101/60 02/15/24 15:18 105 H 29 H 98 02/15/24 14:48 113 H 32 H 94 02/15/24 14:45 107 H 18 93/53 L 94 02/15/24 14:39 107 H 25 H 02/15/24 14:30 98 02/15/24 14:29 36.1 C L 114 H 18 97 02/15/24 14:22 109 H 02/15/24 14:18 110 H 24 113/62 O2 Del Method 02/15/24 17:00 02/15/24 16:45 Room Air 02/15/24 16:30 02/15/24 16:30 Room Air 02/15/24 16:28 02/15/24 16:28 02/15/24 16:27 02/15/24 16:15 02/15/24 16:06 02/15/24 16:00 02/15/24 15:57 02/15/24 15:45 02/15/24 15:42 02/15/24 15:36 02/15/24 15:25 Room Air 02/15/24 15:24 02/15/24 15:19 02/15/24 15:18 02/15/24 14:48 02/15/24 14:45 Room Air 02/15/24 14:39 02/15/24 14:30 Room Air 02/15/24 14:29 Room Air 02/15/24 14:22 02/15/24 14:18 Laboratory Results 02/15/24 15:49 Urine Culture - Pending Urine,Clean Catch 02/15/24 15:17 Aerobic Blood Culture - Pending Blood Anaerobic Blood Culture - Pending 02/15/24 15:17 Aerobic Blood Culture - Pending Blood Anaerobic Blood Culture - Pending 02/15/24 02/15/24 02/15/24 17:47 15:53 15:49 WBC RBC Hgb Hct MCV MCH MCHC RDW Std Deviation RDW Coeff of Ruben Plt Count MPV Immature Gran % (Auto) Neut % (Auto) Lymph % (Auto) [place] % (Auto) Eos % (Auto) Baso % (Auto) Neut # (Auto) Lymph # (Auto) [place] # (Auto) Eos # (Auto) Baso # (Auto) Immature Gran # (Auto) Sodium Potassium Chloride Carbon Dioxide Anion Gap BUN Creatinine Est Cr Clr Drug Dosing eGFR BUN/Creatinine Ratio Glucose Lactate 2.1 H* Calcium Magnesium Total Bilirubin Direct Bilirubin AST ALT Alkaline Phosphatase Troponin I High Sens Total Protein Albumin Procalcitonin Urine Color Yellow Urine Appearance Turbid A Urine pH 7.0 Ur Specific [place] 1.019 Urine Protein 3+ H Urine Glucose (UA) Negative Urine Ketones Trace H Urine Blood 3+ H Urine Nitrite Negative Urine Bilirubin Negative Urine Urobilinogen Negative Ur Leukocyte Esterase 3+ H Urine WBC (Auto) >50 H Urine RBC (Auto) 11-20 H U Hyaline Cast (Auto) >20 H U Epithel Cells (Auto) 0-2 Urine Bacteria (Auto) 4+ H Urine Yeast Present A Adenovirus (PCR) Not Detected B. pertussis DNA (PCR) Not Detected B.parapertussis DNA PCR Not Detected C. pneumoniae DNA (PCR) Not Detected Coronavirus OC43 (PCR) Not Detected Coronavirus HKU1 (PCR) Not Detected Coronavirus 229E (PCR) Not Detected SARS-CoV-2 (PCR) Not Detected Coronavirus NL63 (PCR) Not Detected Human Metapneumovir PCR Not Detected Influenza Type A (PCR) Not Detected Influenza Type B (PCR) Not Detected M. pneumoniae (PCR) Not Detected Parainfluenza 1 (PCR) Not Detected Parainfluenza 2 (PCR) Not Detected Parainfluenza 3 (PCR) Not Detected Parainfluenza 4 (PCR) Not Detected RSV (PCR) Not Detected Entero/Rhino (PCR) Not Detected 02/15/24 15:17 WBC 39.15 H* RBC 4.10 L Hgb 11.8 L Hct 35.6 L MCV 86.8 MCH 28.8 MCHC 33.1 RDW Std Deviation 43.3 RDW Coeff of Ruben 13.6 Plt Count 163 MPV 11.7 Immature Gran % (Auto) 1.7 Neut % (Auto) 90.8 Lymph % (Auto) 2.2 [place] % (Auto) 5.1 Eos % (Auto) 0.0 Baso % (Auto) 0.2 Neut # (Auto) 35.55 H Lymph # (Auto) 0.85 L [place] # (Auto) 1.98 H Eos # (Auto) 0.01 Baso # (Auto) 0.09 Immature Gran # (Auto) 0.67 H Sodium 138 Potassium 3.5 Chloride 102 Carbon Dioxide 25 Anion Gap 11 BUN 47 H Creatinine 2.39 H Est Cr Clr Drug Dosing 12.7 eGFR 18.93 BUN/Creatinine Ratio 19.7 Glucose 226 H Lactate 4.4 H* Calcium 9.2 Magnesium 1.6 L Total Bilirubin 0.5 Direct Bilirubin 0.1 AST 30 ALT 15 Alkaline Phosphatase 57 Troponin I High Sens 1301.1 H* Total Protein 6.5 Albumin 3.6 Procalcitonin 75.90 H Urine Color Urine Appearance Urine pH Ur Specific [place] Urine Protein Urine Glucose (UA) Urine Ketones Urine Blood Urine Nitrite Urine Bilirubin Urine Urobilinogen Ur Leukocyte Esterase Urine WBC (Auto) Urine RBC (Auto) U Hyaline Cast (Auto) U Epithel Cells (Auto) Urine Bacteria (Auto) Urine Yeast Adenovirus (PCR) B. pertussis DNA (PCR) B.parapertussis DNA PCR C. pneumoniae DNA (PCR) Coronavirus OC43 (PCR) Coronavirus HKU1 (PCR) Coronavirus 229E (PCR) SARS-CoV-2 (PCR) Coronavirus NL63 (PCR) Human Metapneumovir PCR Influenza Type A (PCR) Influenza Type B (PCR) M. pneumoniae (PCR) Parainfluenza 1 (PCR) Parainfluenza 2 (PCR) Parainfluenza 3 (PCR) Parainfluenza 4 (PCR) RSV (PCR) Entero/Rhino (PCR) Diagnostic Findings Chest X-Ray 02/15/24 14:30 XR chest 1V portable CLINICAL HISTORY: Sepsis. COMPARISON STUDY: Chest radiograph March 04, 2023. FINDINGS: An old, healed right humeral head fracture is incidentally noted. Ther e is no pneumothorax or pleural effusion. Cardiomediastinal silhouette is stable. There is a small hiatal hernia. There is no consolidation to suggest pneumonia. Mild interstitial thickening is likely chronic. IMPRESSION: No acute cardiopulmonary findings. No significant change in appearance of the chest. ACT 112: Negative or not required by law. Electronically signed by: Devante Sims M.D. 02/15/2024 3:[address] 02/15/24 14:32 CT OF THE HEAD WITHOUT CONTRAST CLINICAL HISTORY: Altered mental status. COMPARISON STUDY: MRI of the brain August 18, 2013. Head CT February 15, 2023. CT DOSE: 625.8 mGy.cm TECHNIQUE: Helical axial images of the head were obtained without IV contrast. Automated exposure control was utilized for the study. A dose lowering technique was utilized adhering to the principles of ALARA. FINDINGS: This exam is mildly compromised given difficulty positioning. No acute intracranial hemorrhage, midline shift or mass effect is present. The ventricular system is stable. The basal cisterns are patent. There are no extra- axial collections. A small left forehead contusion is present. There is no calvarial fracture. There is mild sinus mucosal thickening. IMPRESSION: No acute intracranial findings. Exam mildly compromised given difficulty positioning. No change in appearance of the brain. ACT 112: Negative or not required by law. Electronically signed by: Devante Sims M.D. 02/15/2024 3:33 PM Code Status & VTE Plan Code Status DNR/DNI Supervising Physician Co-Signing Physician Notes I personally saw and examined the patient. I independently reviewed the labs, EKG, imaging, problem list, medication list, past medical history and family history. I verified all simons points and agree with Taras Reyes PA-C with the following exceptions and/or additions: 88 year old with baseline severe dementia presents to the ER with hypotension, tachycardia and fever. Fell out of chair this morning therefore EMS called. Unable to get any history from the patient. O/E Alert but no orientated x3, non verbal, no respiratory distress, Chest CTAB, Abdo SNT, no CVA tenderness although exam limited given patient baseline cognition A/P Severe sepsis - suspected urinary source, sepsis bolus fluids, empiric IV cefepime. follow up blood and urine cultures. Discussed comfort vs. active treatment with family at bedside and they wish her to have a trial of antibiotics but if not improving they have realistic expectations and wish her to move to comfort care if she was to decline. Not for vasopressors, DNR, DNI. Elevated troponin - suspected demand in setting of severe sepsis, continue to trend, not able to reliably get whether she is having chest pain HTN - hold both metoprolol and HCTZ at this time. T2DM - novolog changed to just correction factor, add basal dosing if needing frequently Given severity of her condition will also hold simvastatin and donepezil PG Care Time/CCT Total # of Minutes Spent Total Time Spent with Patient: Total time spent is greater than 50% in coordination of care (as documented) at patient's floor/unit and/or counseling patient: Coding Level of Care Code 98130 INT INP/OBS CARE 3/75MIN Diagnoses Sepsis A41.9 Urinary tract infection N39.0 Acute kidney injury N17.9 Dementia F03.90 Diabetes mellitus E11.9 Essential hypertension I10 Hypertension type: essential hypertension Elevated troponin R79.89 Time Spent (min) 70 (6) HTN (hypertension) Hypertension type: essential hypertension Qualified Code(s): I10 - Essential (primary) hypertension
[2024-02-15] MEDS: ACETAMINOPHEN 1,000 MG/100 ML VIAL IV STA (17:25)
[2024-02-15] MEDS ORDERED: GLUCOSE 40% GEL 15 GM TUBE PO PRN (21:22)
[2024-02-15] MEDS ORDERED: DEXTROSE 50% 50 ML SYRINGE IV PRN (21:22)
[2024-02-15] MEDS ORDERED: GLUCAGON FOR INJ 1 MG VIAL SQ PRN (21:22)
[2024-02-15] MEDS ORDERED: GLUCOSE 10 TAB/TUBE PO PRN (21:22)
[2024-02-15] MEDS ORDERED: CARBOHYDRATES FOR HYPOGLYCEMIA PO PRN (21:22)
[2024-02-15] MEDS ORDERED: MELATONIN 3 MG TAB PO PRN (21:22)
[2024-02-15] MEDS: INSULIN ASPART PER UNIT CHARGE SC SCH (21:41)
[2024-02-15] MEDS: MAGNESIUM SULFATE / D5W 1 GM/100 ML BAG IV SCH (22:16)
[2024-02-15] MEDS: LACTATED RINGER'S 1,000 ML IV SCH (22:16)
--- OUTSIDE RECORDS SUMMARY | 2024-02-15 23:04 | External Medical Summary | Summary of Care ---
Author Name Unknown Organization [facility] Address [address] [facility] [place] [address] Phone [phone] Care Team Providers Care Mobile Paramedical Examiner Name Role Phone Unavailable Primary Care Provider Unavailabl e Reason for Visit * Reason Comments Outpatient Testing Encounter Details Date Type Department Care Team (Late st Contact Info) Description 02/15/2024 11:10 AM EDT Laboratory [facility], [facility] [address] [facility] [place] [address] [place], Specimen Drop Off [facility] [address] [facility] [place] [id number] AMS (altered mental status) Allergies Active Allergy Reactions Criticality Noted Date Comments Gabapentin 02/07/2024 documented as of this encounter (statuses as of 02/15/2024) Medications Medication Sig Dispensed Refills Start Date End Date Status METOPROLOL TARTRATE 25 MG PO TABSIndications:Cereb rovascular disease, arteriosclerotic, post-stroke TAKE 1/2 TAB TWICE DAILY 90 Tab 1 02/10/2013 Active SIMVASTATIN 40 MG PO TABSIndications:Dysli pidemia, goal LDL below 100 TAKE 1 TABLET ONCE A DAY AT BEDTIME 90 Tab 1 08/03/2013 Active CLOPIDOGREL BISULFATE 75 MG PO TABSIndications:Cereb rovascular disease, arteriosclerotic, post-stroke TAKE 1 TABLET EVERY DAY 90 Tab 1 08/03/2013 Active Donepezil HCl 10 MG Oral Tablet (Aricept) Take 1 Tablet by mouth at bedtime. Take with largest meal of the day. 10/03/2023 Active Fish Oil 1000 MG Oral Capsule Take 2 Capsules by mouth in the morning. 10/03/2023 Active hydroCHLOROthiazide 25 MG Oral Tablet (Hydrodiuril) Take 1 Tablet by mouth in the morning. 10/03/2023 Active rOPINIRole HCl 0.5 MG Oral Tablet (Requip) Take 1 Tablet by mouth at bedtime. 10/03/2023 Active Vitamin D3 1000 UNIT Oral Capsule Take 1 Capsule by mouth daily. 10/03/2023 Active Acetaminophen 325 MG Oral Tablet (Tylenol) Take 2 Tablets by mouth every 4 hours as needed for Fever >38C(100.5F), Pain, Mild, Pain, Severe or Pain, Moderate. 10/03/2023 Active Sennosides-Docusate Sodium 8.6-50 MG Oral Tablet (Senna S) Take 2 Tablets by mouth in the morning and 2 Tablets before bedtime. 10/29/2023 Active OXcarbazepine 150 MG Oral Tablet (Trileptal) Take 1 Tablet by mouth daily at noon. 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 ADVANCE DIRECTIVE INFORMATION 11/26/2008 Overview: No, Advance Directive brochure given to patient. BENIGN HYPERTENSION 02/20/2006 Overview: Modified per HTN Taxonomy. Calculus of kidney documented as of this encounter (statuses as of 02/15/2024) Resolved Problems Problem Noted Date Diagnosed Date Resolved Date Aortic stenosis 03/05/2012 02/10/2013 Hypokalemia 01/29/2012 10/03/2023 HTN, goal below 130/80 07/19/201001/28 HTN, goal below 140/90 02/19/200907/19 Overview: Modified per HTN Taxonomy. ACTIVE CASE MANAGEMENT 11/26/200801/31 Overview: Janina Arizmendi RN [phone] Cerebrovascular accident (CV A) due to thrombosis of cerebral artery 11/26/2008 10/03/2023 Overview: Right parietal CVA 11/17/08 Dyslipidemia, goal to be determined 09/13/2006 07/19/2010 Cerebrovascular event, ill-d efined, within last 8 weeks 04/06/2009 Overview: Modified by CVA Protocol #8. documented as of this encounter (statuses as of 02/15/2024) Immunizations Name Administration Dates Next Due Pneumococcal Polysaccharide PPV23 (Pneumovax) 07/19/2010,07/16/2009(Deferred: Patient Refused) Seasonal Influenza Vac., MDV , IM, 0.5 mL (Fluzone) 02/10/2013,01/29/2012,01/17/2011,01/17,01/08/2009,02/12/2008,03/04/2007 TD - Tetanus/Diptheria (ADULT) 09/16/2007 documented as of this encounter Social History Tobacco Use Types Packs/Day Years Used Date Smoking Tobacco: Never Smokeless Tobacco: Never Alcohol Use Standard Drinks/Week Comments No 0 (1 standard drink = 0.6 oz pur e alcohol) Sex and Gender Information Value Date Recorded Sex Assigned at Not on file Gender Identity Not on file Sexual Orientation Not on file Job Start Date Occupation Industry Not on file Not on file Not on file documented as of this encounter Plan of Treatment Pending Results Name Type Priority Associated Diagnoses Date /Time COMPREHENSIVE METABOLIC PANEL Lab Routine AMS (altered mental status) 02/15/2024 11:16 AM EDT CBC WITH WBC DIFFERENTIAL Lab Routine AMS (altered mental status) 02/15/2024 11:16 AM EDT CBC Lab Routine AMS (altered mental status) 02/15/2024 11:16 AM EDT DIFFERENTIAL, AUTOMATED Lab Routine AMS (altered mental status) 02/15/2024 11:16 AM EDT Health Maintenance Due Date Last Done Comments Albumin/Creatinine Ratio 1953 Diabetic Eye Exam 1953 Diabetic Foot Exam 1953 Zoster Vaccines (1 of 2) 1984 DTap/Tdap Vaccines (1 - Tdap) 09/17/2007 09/16/2007 Pneumococcal Vaccine: 65+ Years (2 of 2 - PCV) 07/20/2011 07/19/2010 Depression Screening 02/10/2014 02/10/2013 DXA Scan 10/10/2014 10/10/2012, 10/01/2009 *BISPHONATE OR OTHER ACCEPTABLE MEDICATION NEEDED FOR OSTEOPOROSIS (REFER TO SMARTSET #1146) 10/06/2023 COVID-19 Vaccine ( season) 2023 Influenza Vaccine (FLU shot) (#1) 2023 02/10/2013, 01/29/2012, 01/17/2011, Additional history exists HbA1c 04/01/2024 10/01/2023, 02/05/2020 VITAMIN D LEVEL ONCE IN A LIFETIME-USE SMARTSET# 06993 Completed 10/05/2023, 04/07/2021, 02/05/2020, Additional history exists HPV (Gardasil) Vaccine Aged Out No lo nger eligible based on patient's age to complete this topic Hepatitis B Vaccine Aged Out No longe r eligible based on patient's age to complete this topic MENINGOCOCCAL (MENACTRA/MENVEO) Aged Out No longer eligible based on patient's age to complete this topic documented as of this encounter Medical Devices Not on filedocumented as of this encounter Visit Diagnoses Diagnosis AMS (altered mental status) documented in this encounter
--- OUTSIDE RECORDS SUMMARY | 2024-02-15 23:05 | External Medical Summary | Summary of Care ---
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 11/19/2023 Active documented as of this encounter (statuses as of 02/07/2024) Active Problems Problem Noted Date Diagnosed Date [...] other malignant neoplasm of skin 08/07/2012 Overview: Gwendolyn (R medial cheek) Dyslipidemia, goal LDL below 100 07/19/2010 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 ADVANCE DIRECTIVE INFORMATION 11/26/2008 Overview: No, Advance Directive brochure given to patient. BENIGN HYPERTENSION 02/20/2006 Overview: Modified per HTN Taxonomy. Calculus of kidney documented as of this encounter (statuses as of 02/07/2024) Resolved Problems Problem Noted Date Diagnosed Date Resolved Date Aortic stenosis 03/05/2012 02/10/2013 Hypokalemia 01/29/2012 10/03/2023 HTN, goal below 130/80 07/19/201001/28 HTN, goal below 140/90 02/19/200907/19 Overview: Modified per HTN Taxonomy. ACTIVE CASE MANAGEMENT 11/26/200801/31 Overview: Janina Arizmendi, RN [phone] Cerebrovascular accident (CV A) due to thrombosis of cerebral artery 11/26/2008 10/03/2023 Overview: Right parietal CVA 11/17/08 Dyslipidemia, goal to be determined 09/13/2006 07/19/2010 Cerebrovascular event, ill-d efined, within last 8 weeks 04/06/2009 Overview: Modified by CVA Protocol #8. documented as of this encounter (statuses as of 02/07/2024) Immunizations Name Administration Dates Next Due Pneumococcal [...] on file documented as of this encounter Progress Notes * Brigitte Nieto PA-C - 02/07/2024 12:19 PM EDT Provider Visit TRANSITION EVENT: Type: Regulatory visit Date: February 06 Code Status: No Code Name: Moon Allen Date of : 1935 This note pertains to care provided at [facility]. Please see facility medical record for original note. This note is not to be edited or addended in [employer] Editing or addending needs to occur in the facilities medical record. S: Moon Allen is seen today as part of a regulatory visit. LTC pt with history of dementia with behavioral disturbances maintained on several psychotropic medications, cerebrovascular disease, HTN, diet controlled DM2, and other history as noted below, is seen in routine follow up. She provides no history due to dementia. Staff report no new concerns aside from recent behaviors. She had a fall last month. She walks independently and requires assistance with ADLs. 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) Vitamin B12 deficiency DNR (do not resuscitate) Past Medical History: Diagnosis Date Calculus of kidney Cerebrovascular event, ill-defined, within last 8 weeks 11/16/08 right parietal CVA Dyslipidemia, goal to be determined HTN, goal below 140/90 Past Surgical History: Procedure Laterality Date CT HEAD/BRAIN WO CONTRAST 11/16/08 nonspecific hypodensities on right, [facility] ECHO EXAM OF HEART (2D ECHO) 02/29/12 LVEF 60%, mild , Clfd EKG 02/29/12 NSR, [facility] FRAGMENT KIDNEY STONE BY SHOCK WAVE IOF MRI-BRAIN W/WO CONTRAST 02/29/12 normal, Clfd IOF US CAROTID DUPLEX BILAT 02/29/12 no significant stenosis, Clfd MRA HEAD W WO CONTRAST 11/16/08 unremarkable, [facility] MRI BRAIN W WO CONTRAST 11/16/08 small acute infarct right parietal deep white matter, [facility] TOTAL ABD HYSTERECTOMY W/WO REMOVAL OF TUBE(S) age 44 no cancer, took both ovary VASC DUPLEX CAROTID BILAT 11/16/08 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 Is not having pain issues. Is having current behavioral problems. Including combativeness with care, recent reports of "playing" in feces and is being treated with medications, redirection, and comforting patient by the nursing staff. ROS: Unable to obtain from pt due to dementia O: I reviewed the most recent facilities vitals. General: no distress, sleepy, mostly nonverbal Head: Normocephalic Neuro: wakes briefly, nonverbal, global weakness Eye Exam: conjunctiva are pink and non-injected, sclera clear Oropharynx: lips, buccal mucosa, and tongue normal and mucous membranes are moist Heart: regular rate & rhythm and + murmur noted Lungs: chest symmetric with normal AP diameter, no chest deformities noted, no chest wall tenderness, lungs clear to auscultation Abdomen: abdomen soft, non-tender, normal bowel sounds, no masses or organomegaly, and no rebound or guarding Extremities: less than 2 second capillary refill, no joint deformities, effusion, or inflammation, no edema Basic Panel Results: Results for orders placed or performed in visit on 10/01/23 BASIC METABOLIC PANEL Result Value Ref Range BUN 28 (H) 6 - 20 mg/dL CREATININE 0.8 0.5 - 1.0 mg/dL EGFR 70 >=60 mL/min SODIUM 141 135 - 146 mmol/L POTASSIUM 3.7 3.5 - 5.1 mmol/L CHLORIDE 102 98 - 107 mmol/L CO2 29 22 - 32 mmol/L ANION GAP 10 7 - 15 mmol/L GLUCOSE 113 70 - 120 mg/dL CALCIUM 9.8 8.4 - 10.2 mg/dL Hemoglobin AIC Results: Lab Results Component Value Date/Time HEMOGLOBIN A1C - [facility] 6.2 (H) 10/01/2023 05:48 AM HEMOGLOBIN A1C - [facility] 6.5 (H) 02/05/2020 07:29 AM Hemoglobin Results: Lab Results Component Value Date/Time HGB 12.4 10/01/2023 05:48 AM HGB 12.3 04/07/2021 06:01 AM HGB 13.3 02/05/2020 07:29 AM HGB 14.1 09/22/2005 08:09 AM Results for orders placed or performed in visit on 10/05/23 LIPID PANEL WITH DIRECT LDL IF TG IS HIGH Result Value Ref Range Triglycerides 102 <=174 mg/dL Cholesterol 149 <200 mg/dL HDL Cholesterol 50 >49 mg/dL Non-HDL Cholesterol 99 <=159 mg/dL LDL Cholesterol 79 <=129 mg/dL TSH Results: Lab Results Component Value Date/Time TSH - [facility] 2.64 10/05/2023 06:00 AM TSH - [facility] 3.18 04/07/2021 06:01 AM TSH - [facility] 4.54 (H) 02/05/2020 07:29 AM A: 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) (Primary) 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, POST-STROKE Continue current psychotropic regimen including aricept 10 mg daily, oxcarbazepine 150 g daily Continue plavix 75 mg daily and BP control Type 2 diabetes mellitus with hemoglobin A1c goal of less than 8.0% (HCC) Diet controlled and at goal Dyslipidemia, goal LDL below 100 Well controlled, continue simvastatin 40 mg daily RLS (restless legs syndrome) Continue requip 0.5 mg nightly Aortic valve sclerosis No apparent symptoms Senile osteoporosis Continue vitamin D replacement BENIGN HYPERTENSION Appears well controlled Continue metoprolol 12.5 mg twice daily + HCTZ 25 mg daily P: Medications reviewed. Please refer to MAR in the facility's medical record for the most up-to-date medication list. Continue present medication(s): Reviewed skilled nursing record for: vital signs, weight, bowel, and bladder function, and ADLs. Labs reviewed Continue current treatment plan as ordered Continue to follow up as needed and as scheduled I spent a total of 48 minutes coordinating, documenting, and providing care for this patient excluding time spent in the performance of separately billed services or time spent by another provider/QHP. 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
--- OUTSIDE RECORDS SUMMARY | 2024-02-15 23:05 | External Medical Summary | Summary of Care ---
Author Name Unknown Organization [facility] Address [address] [place] [address] Phone [phone] Care Team Providers Care Artist Agent Name Role Phone Unavailable Primary Care Provider Unavailabl e Encounter Details Date Type Department Care Team (Late st Contact Info) Description 01/07/2024 Orders Only Outcomes Research Department [address] [place] [address] Shayy Musa CHRA MyCode Research Other*[id number] Allergies No known active allergiesdocumented as of this encounter (statuses as of 01/07/2024) Medications Medication Sig Dispensed Refills Start Date [...] as of this encounter (statuses as of 01/07/2024) Active Problems Problem Noted Date Diagnosed Date [...] as of this encounter (statuses as of 01/07/2024) Resolved Problems Problem Noted Date Diagnosed Date Resolved Date Aortic stenosis 03/05/2012 02/10/2013 Hypokalemia 01/29/2012 10/03/2023 HTN, goal below 130/80 07/19/201001/28 HTN, goal below 140/90 02/19/200907/19 Overview: Modified per HTN Taxonomy. ACTIVE CASE MANAGEMENT 11/26/200801/31 Overview: Janina Arizmendi, RN [phone] Cerebrovascular accident (CV A) due to thrombosis of cerebral artery 11/26/2008 10/03/2023 Overview: Right parietal CVA 11/17/08 Dyslipidemia, goal to be determined 09/13/2006 07/19/2010 Cerebrovascular event, ill-d efined, within last 8 weeks 04/06/2009 Overview: Modified by CVA Protocol #8. documented as of this encounter (statuses as of 01/07/2024) Immunizations Name Administration Dates Next Due Pneumococcal Polysaccharide PPV23 (Pneumovax) 07/19/2010,07/16/2009(Deferred: Patient Refused) Seasonal Influenza, Trivalen t, (IIV3), with Preserv, (Fluzone) 02/10/2013,01/29/2012,01/17/2011,01/17,01/08/2009,02/12/2008,03/04/2007 TD - Tetanus/Diptheria (ADULT) 09/16/2007 [...] as of this encounter Plan of Treatment Scheduled Orders Name Type Priority Associated Diagnoses Orde r Schedule MYCODE INITIAL ADULT Lab Routine MyCode Research Other*[id number] Expected: 01/07/2024 (Approximate), Expires: 01/26/2025 Health Maintenance Due Date Last Done Comments [...] TO SMARTSET #1146) 10/06/2023 COVID-19 Vaccine ( - season) 2023 Influenza Vaccine (FLU shot) (#1) 2023 02/10/2013, 01/29/2012, 01/17/2011, Additional history exists HbA1c 04/01/2024 10/01/2023, 02/05/2020 VITAMIN D LEVEL ONCE IN A LIFETIME-USE SMARTSET# 35129 Completed 10/05/2023, 04/07/2021, 02/05/2020, Additional history exists [...] as of this encounter Visit Diagnoses Diagnosis MyCode Research Other*[id number] documented in this encounter
--- OUTSIDE RECORDS SUMMARY | 2024-02-15 23:05 | External Medical Summary ---
Author Name Unknown Address Unknown Organization [id number]:[facility] [address] [place] [id number] Laboratory Report Ordering Provider Test Date Status YAKELIN MCNAMARA 02/15/2024 11:16:34 Final Observation Date Value Abnormality Reference (Units ) Status WBC, Total 02/15/2024 11:16:34 47.32 Above upper panic limits 4.00-10.80 (K/uL) Final Results rechecked.

Sending specimen for path slide review.
null RBC 02/15/2024 11:16:34 4.42 3.85-5.15 (M/uL) Final Hemoglobin 02/15/2024 11:16:34 12.8 12.0-15.3 (g/dL) Final HCT 02/15/2024 11:16:34 38.7 36.0-45.2 (%) Final MCV 02/15/2024 11:16:34 87.6 81.5-97.5 (fL) Final MCH 02/15/2024 11:16:34 29.0 27.0-34.0 (pg) Final MCHC 02/15/2024 11:16:34 33.1 32.0-36.0 (g/dL) Final RDW 02/15/2024 11:16:34 13.9 11.5-15.5 (%) Final Platelets 02/15/2024 11:16:34 198 140-400 (K /uL) Final Results rechecked.

Adequate but actual platelet count may appear higher since clumping seen on slide.

null MPV 02/15/2024 11:16:34 12.8 6.6-11.1 ( fL) Final Performing Location [facility] [address] [place] [id number]
--- OUTSIDE RECORDS SUMMARY | 2024-02-15 23:05 | External Medical Summary | Continuity Of Care Document ---
Author Name Unknown Address [address] [place] [address] Organization [facility]) Care Team Providers Care Body Recall Instructor Name Role Phone [place] Primary Care Provider [phone] Problems Code Description Start Date End Date Status E83.52 Hypercalcemia 09/27/2023 Active E11.9 Type 2 diabetes mellitus without complications 09/27/2023 Active I35.0 Nonrheumatic aortic (valve) stenosis 09/27/2023 Active E55.9 Vitamin D deficiency, unspecified 09/27/2023 Active E87.6 Hypokalemia 09/27/2023 Active I10. Essential (primary) hypertension 09/27/2023 Active R13.11 Dysphagia, oral phase 10/04/2023 Act sachin R26.89 Other abnormalities of gait and mobility 2023 Active R26.81 Unsteadiness on feet 10/04/2023 Acti ve M62.81 Muscle weakness (generalized) 10/04/2023 Active . Active G25.81 Restless legs syndrome 09/28/2023 Ac tive M62.81 Muscle weakness (generalized) 09/28/2023 Active R26.89 Other abnormalities of gait and mobility 2023 Active R26.81 Unsteadiness on feet 09/28/2023 Acti ve R13.11 Dysphagia, oral phase 09/29/2023 Act sachin VITAL SIGNS Date Time Diastolic blood pressure Systolic blood pressure Body height Body weight Temperature SpO2 Blood Sugar Pulse Respirations 91829 718 74642 4 113.00 NI 68713 806 07694 1 13377 807 00287 1 76.00 mm[Hg] - Sitting 149.00 mm[Hg] - Sitting 79.00/ min 807 47790 1 118.40 NI Immunizations Vaccine Date Status COVID-19 05/23/2020 Completed COVID-19 06/13/2020 Completed COVID-19 02/09/2021 Completed COVID-19 09/29/2021 Completed COVID-19 01/26/2022 Completed Influenza 01/28/2018 Completed Influenza 01/27/2019 Completed Influenza 01/21/2020 Completed Influenza 01/27/2021 Completed Influenza 02/08/2022 Completed Influenza 01/26/2023 Completed (PCV20)Pneumococcal 11/05/2023 Completed
--- OUTSIDE RECORDS SUMMARY | 2024-02-15 23:05 | External Medical Summary | Summary of Care ---
Author Name Unknown Organization [facility] Address [address] [facility] 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)*; CEREBROVASCULAR DZ, POST-STROKE; BENIGN HYPERTENSION; Type 2 diabetes mellitus with hemoglobin A1c goal of less than 8.0% (HCC); Vitamin D deficiency; Vitamin B12 deficiency; Dyslipidemia, goal LDL below 100 Allergies Active Allergy Reactions Criticality Noted Date Comments Gabapentin 02/07/2024 documented as of this encounter (statuses as of 02/12/2024) Medications Medication Sig Dispensed Refills Start Date End Date Status METOPROLOL TARTRATE 25 MG PO TABSIndications:C erebrovascular disease, arteriosclerotic, post-stroke TAKE 1/2 TAB TWICE DAILY 90 Tab 1 02/10/2013 Active SIMVASTATIN 40 MG PO TABSIndications:D yslipidemia, goal LDL below 100 TAKE 1 TABLET ONCE A DAY AT BEDTIME 90 Tab 1 08/03/2013 Active CLOPIDOGREL BISULFATE 75 MG PO TABSIndications:C erebrovascular disease, arteriosclerotic, post-stroke TAKE 1 TABLET EVERY DAY 90 Tab 1 08/03/2013 Active Donepezil HCl 10 MG Oral Tablet (Aricept) Take 1 Tablet by mouth at bedtime. Take with largest meal of the day. 10/03/2023 Active Fish Oil 1000 MG Oral Capsule Take 2 Capsules by mouth in the morning. 10/03/2023 Active hydroCHLOROthiazi de 25 MG Oral Tablet (Hydrodiuril) Take 1 [...] Pain, Severe or Pain, Moderate. 10/03/2023 Active Sennosides-Docusa te Sodium 8.6-50 MG Oral Tablet (Senna S) Take 2 Tablets by mouth in the morning and 2 Tablets before bedtime. 10/29/2023 Active OXcarbazepine 150 MG Oral Tablet (Trileptal) Take 1 Tablet by mouth in the morning and 1 Tablet before bedtime. 02/12/2024 Active OXcarbazepine 150 MG Oral Tablet (Trileptal) Take 1 Tablet by mouth daily at noon. 11/19/2023 02/12/2024 Discontinued documented as of this encounter (statuses as of 02/12/2024) Active Problems Problem Noted Date Diagnosed Date [...] as of this encounter (statuses as of 02/12/2024) Resolved Problems Problem Noted Date Diagnosed Date Resolved Date Aortic stenosis 03/05/2012 02/10/2013 Hypokalemia 01/29/2012 10/03/2023 HTN, goal below 130/80 07/19/201001/28 HTN, goal below 140/90 02/19/200907/19 Overview: Modified per HTN Taxonomy. 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 documented as of this encounter (statuses as of 02/12/2024) Immunizations Name Administration Dates Next Due Pneumococcal [...] as of this encounter Progress Notes * Gilda Castaneda PA-C - 02/12/2024 3:08 PM EDT REGULATORY VISIT TRANSITION EVENT: Type: Regulatory visit Date: February 11 Code Status: No Code Name: Moon Allen Date of : 1935 This note pertains to care provided at [facility]. Please see facility medical record for original note. This note is not to be edited or addended in [employer]. Editing or addending needs to occur in the facilities medical record. S: Moon Allen seen today as part of a regulatory visit. Has history of : Patient Active Problem [...] WO CONTRAST 11/16/08 nonspecific hypodensities on right, [facility] ECHO EXAM OF HEART (2D ECHO) 02/29/12 LVEF 60%, mild , Clfd EKG 02/29/12 NSR, [facility] FRAGMENT KIDNEY STONE BY SHOCK WAVE IOF MRI-BRAIN W/WO CONTRAST 02/29/12 normal, Clfd IOF US CAROTID DUPLEX BILAT 02/29/12 no significant stenosis, [facility] MRA HEAD W WO CONTRAST 11/16/08 unremarkable, [facility] MRI BRAIN W WO CONTRAST 11/16/08 small acute infarct right parietal deep white matter, [facility] TOTAL ABD HYSTERECTOMY W/WO REMOVAL OF TUBE(S) age 44 no cancer, took both ovary VASC DUPLEX CAROTID BILAT 11/16/08 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, no significant ICA stenosis, [facility] Family History Problem Relation Name Age of Onset Stroke Father age 49 Heart attack Father Cancer Sister breast Cancer Grandmother (Maternal) colon Family Status Relation Status Mo Fa (Not Specified) Sis (Not Specified) Sis (Not Specified) MGMA (Not Specified) Social History Socioeconomic History Marital status: Spouse name: Not on file Number of children: Not on file Years of education: Not on file Highest education level: Not on file Occupational History Not on file Tobacco Use Smoking status: Never Smokeless tobacco: Never Substance and Sexual Activity Alcohol use: No Drug use: No Sexual activity: Never Other Topics Concern Not on file Social History Narrative Not on file Social Determinants of Health Financial Resource Strain: Not on file Food Insecurity: Not on file Transportation Needs: Not on file Social Connections: Unknown (02/12/2024) Social Connections How often do you feel lonely or isolated from those around you? (Adult - for ages 18 years and over): Not on file Housing Stability: Not on file Review of patient's allergies indicates: Allergen Reactions Gabapentin She is now having acute problem(s). Current problems include having increased behaviors, agitation,resistence to care and combativeness towards staff. Pt has dementia with agitation. She is on Aricept and Trileptal 150mg Q noon which was begun in October and somewhat effective. Is not having pain issues. Is having current behavioral problems. Including see above and is being treated with medications and comforting patient by the nursing staff. CBC Results: Results for orders placed or performed in visit on 10/01/23 CBC Result Value Ref Range WBC 4.92 4.00 - 10.80 K/uL RBC 4.29 3.85 - 5.15 M/uL HGB 12.4 12.0 - 15.3 g/dL HCT 37.7 36.0 - 45.2 % MCV 87.9 81.5 - 97.5 fL MCH 28.9 27.0 - 34.0 pg MCHC 32.9 32.0 - 36.0 g/dL RDW 13.2 11.5 - 15.5 % PLT 190 140 - 400 K/uL MPV 11.3 6.6 - 11.1 fL Hemoglobin Results: Lab Results Component Value Date/Time HGB 12.4 10/01/2023 05:48 AM HGB 12.3 04/07/2021 06:01 AM HGB 13.3 02/05/2020 07:29 AM HGB 14.1 09/22/2005 08:09 AM Basic Panel Results: Results for orders placed [...] mg/dL CALCIUM 9.8 8.4 - 10.2 mg/dL Creatinine Results: Lab Results Component Value Date/Time CREATININE - [facility] 0.8 10/01/2023 05:48 AM CREATININE - [facility] 0.8 06/28/2023 06:20 AM CREATININE - [facility] 0.8 04/07/2021 06:01 AM CREATININE - [facility] 0.7 02/05/2020 07:29 AM CREATININE - [facility] 0.7 08/04/2013 07:35 AM CREATININE - [facility] 0.78 08/03/2013 12:00 AM CREATININE - [facility] 0.7 01/31/2013 07:41 AM Potassium Results: Lab Results Component Value Date/Time POTASSIUM - [facility] 3.7 10/01/2023 05:48 AM POTASSIUM - [facility] 4.4 06/28/2023 06:20 AM POTASSIUM - [facility] 4.3 04/07/2021 06:01 AM POTASSIUM - [facility] 4.3 02/05/2020 07:29 AM POTASSIUM - [facility] 3.3 (L) 08/04/2013 07:35 AM POTASSIUM - [facility] 4.4 01/31/2013 07:41 AM Sodium Results: Lab Results Component Value Date/Time SODIUM - [facility] 141 10/01/2023 05:48 AM SODIUM - [facility] 140 06/28/2023 06:20 AM SODIUM - [facility] 141 04/07/2021 06:01 AM SODIUM - [facility] 142 02/05/2020 07:29 AM SODIUM - [facility] 133 (L) 08/04/2013 07:35 AM SODIUM - [facility] 140 01/31/2013 07:41 AM Chloride Results: Lab Results Component Value Date/Time CHLORIDE - [facility] 102 10/01/2023 05:48 AM CHLORIDE - [facility] 102 06/28/2023 06:20 AM CHLORIDE - [facility] 103 04/07/2021 06:01 AM CHLORIDE - [facility] 104 02/05/2020 07:29 AM CHLORIDE - [facility] 92 (L) 08/04/2013 07:35 AM CHLORIDE - [facility] 101 01/31/2013 07:41 AM TSH Results: Lab Results Component Value Date/Time TSH - [facility] 2.64 10/05/2023 06:00 AM TSH - [facility] 3.18 04/07/2021 06:01 AM TSH - [facility] 4.54 (H) 02/05/2020 07:29 AM Lipid Panel Results: Results for orders placed or performed in visit on 04/07/21 LIPID PANEL WITHOUT DIRECT LDL Result Value Ref Range Triglycerides 96 <=174 mg/dL Cholesterol 131 <200 mg/dL HDL Cholesterol 55 >49 mg/dL Non-HDL Cholesterol 76 <=159 mg/dL LDL Cholesterol 57 <=129 mg/dL Results for orders placed or performed in visit on 10/05/23 LIPID PANEL WITH DIRECT LDL IF TG IS HIGH Result Value Ref Range Triglycerides 102 <=174 mg/dL Cholesterol 149 <200 mg/dL HDL Cholesterol 50 >49 mg/dL Non-HDL Cholesterol 99 <=159 mg/dL LDL Cholesterol 79 <=129 mg/dL AST Results: Lab Results Component Value Date/Time AST - [facility] 18 10/05/2023 06:00 AM AST - [facility] 17 04/07/2021 06:01 AM AST - [facility] 19 02/05/2020 07:29 AM AST - [facility] 25 09/14/2008 10:56 AM AST - [facility] 24 03/18/2007 01:28 PM ALT Results: Lab Results Component Value Date/Time ALT - [facility] 8 (L) 10/05/2023 06:00 AM ALT - [facility] 11 04/07/2021 06:01 AM ALT - [facility] 16 02/05/2020 07:29 AM ALT - [facility] 23 08/04/2013 07:35 AM ALT - [facility] 12 01/31/2013 07:41 AM Hemoglobin AIC Results: Lab Results Component Value Date/Time HEMOGLOBIN A1C - [facility] 6.2 (H) 10/01/2023 05:48 AM HEMOGLOBIN A1C - [facility] 6.5 (H) 02/05/2020 07:29 AM No results found for: "[id number]" No results found for: "[id number]" No results found for: "[id number]" 25OH VITAMIN D TOTAL (ng/mL) Date Value 02/05/2020 48 07/16/2009 23.7 (L) 25-Hydroxy Vitamin D (ng/mL) Date Value 10/05/2023 50 04/07/2021 49 Vitamin D Level Interpretation deficient: <20 ng/ml insufficient: 20-30 ng/ml normal: 31-100 ng/ml ROS: obtained mostly from staff CONSTITUTIONAL: No change in weight, No weakness, No fatigue, and No fevers, sweats, or chills EARS: No ear pain, No drainage, No tinnitus or vertigo, and No recent change in hearing NOSE: No history of frequent colds or sinusitis, No nasal stuffiness, No history of Hay Fever, and No significant epistaxis MOUTH: No bleeding gums, No thrush, or No sore throat PULMONARY: No cough, sputum, or hemoptysis, No wheezing, No rales, No shortness of breath, and No recent change in breathing CARDIOVASCULAR: No chest pain, No shortness of breath, No dyspnea on exertion, No orthopnea, No paroxysmal nocturnal dyspnea, No edema, No palpitations, and No syncope GASTROINTESTINAL: No abdominal pain, No change in bowel habits, No significant heartburn, No significant change in appetite, No nausea, vomiting, diarrhea, or constipation, No hematemesis, No blood in stools or black tarry stools, No abdominal bloating or early satiety, and No dysphagia FEMALE: No dysuria, No frequency, No urgency, and Positive for incontinence SKIN/INTEGUMENTARY: No edema, No rash, and No itching PSYCHIATRIC: No depression, No anxiety, and + dementia ENDOCRINE: No heat intolerance, No cold intolerance, No thyroid trouble, No excessive thirst or urination, and Positive for diabetes SLEEP: No sleep disorders O: I reviewed the most recent facilities vitals. General: alert, healthy, and no distress Eye Exam: PERRLA, extraocular movements intact, conjunctiva are pink and non- injected, sclera clear Ears: External ears normal, Canals clear, TM's Normal Nose: no mucosal erythema, no mucosal edema, no purulent discharge Oropharynx: no exudate, no erythema, lips, buccal mucosa, and tongue normal, and mucous membranes are moist Neck: supple, no adenopathy, no JVD, thyroid normal size, non-tender, without nodularity Heart: regular rate & rhythm, no murmur, and no gallops Lungs: chest symmetric with normal AP diameter, no chest deformities noted, no chest wall tenderness, lungs clear to auscultation Abdomen: abdomen soft, non-tender, normal bowel sounds, and no masses or organomegaly Extremities: no edema, no skin discoloration, no clubbing, no cyanosis A: 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) (Primary) Having continued behaviors as documented above Will increase Trileptal to 150mg BID from Q noon Will continue with Aricept 10mg daily Will obtain psychiatry consultation CEREBROVASCULAR DZ, POST-STROKE Stable NV findings Continue Plavix 75mg daily and Zocor 40mg HS BENIGN HYPERTENSION Stable BP Continue Lopressor 12.5mg BID Type 2 diabetes mellitus with hemoglobin A1c goal of less than 8.0% (HCC) Stable glucoses Continue with diet Recheck AIC next month Vitamin D deficiency Stable Continue Vitamin D 1000 IU daily Vitamin B12 deficiency Pt's last Vitamin B12 level was >2000 She is now off of Vitamin B12 Has repeat Vitamin B12 level pending for tomorrow Dyslipidemia, goal LDL below 100 Stable lipids Continue Zocor 40mg HS P: Medications reviewed. Please refer to MAR in the facility's medical record for the most up-to-date medication list. Continue present medication(s): Reviewed senior living record for: vital signs, weight, bowel, and bladder function, and ADLs. 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
--- OUTSIDE RECORDS SUMMARY | 2024-02-15 23:05 | External Medical Summary ---
Author Name Unknown Address Unknown Organization [facility] [address] [place] [address] Laboratory Report Ordering Provider Test Date Status YAKELIN MCNAMARA 02/15/2024 11:16:34 Final Observation Date Value Abnormality Reference (Units ) Status BUN 02/15/2024 11:16:34 45 Above high normal 6-20 (mg/dL) Final Creatinine 02/15/2024 11:16:34 2.8 Above high normal 0.5-1.0 (mg/dL) Final Glomerular filtration rate/1.73 sq M.predicted [Volume Rate/Area] in Serum, Plasma or Blood by Creatinine-based formula (CKD-EPI) 02/15/2024 11:16:34 15 Below low normal >=60 (mL/min) Final eGFR is calculated based on the CKD-EPI 2020 equation. Sodium 02/15/2024 11:16:34 144 135-146 (m mol/L) Final Potassium 02/15/2024 11:16:34 3.5 3.5-5.1 (m mol/L) Final Cl 02/15/2024 11:16:34 99 98-107 (mm ol/L) Final CO2 02/15/2024 11:16:34 21 Below low normal 22- 32 (mmol/L) Final Anion gap 02/15/2024 11:16:34 24 Above high normal 7- 15 (mmol/L) Final Glucose 02/15/2024 11:16:34 217 Above high normal 70 -120 (mg/dL) Final Albumin 02/15/2024 11:16:34 3.9 3.8-5.0 (g /dL) Final AST (Aspartate aminotransferase) 02/15/2024 11:16:34 43 Above high normal 10-35 (U/L) Final Alk Phos 02/15/2024 11:16:34 81 35-130 (U/ L) Final Bilirubin, Total 02/15/2024 11:16:34 0.5 <=1 .2 (mg/dL) Final Calcium 02/15/2024 11:16:34 10.3 Above high normal 8. 4-10.2 (mg/dL) Final Protein 02/15/2024 11:16:34 6.7 6.0-8.3 (g /dL) Final ALT (Alanine aminotransferase) 02/15/2024 11:16:34 17 10-35 (U/L) [place] Performing Location [facility] [address] [facility] [address]
--- OUTSIDE RECORDS SUMMARY | 2024-02-15 23:05 | External Medical Summary | Summary of Care ---
Author Name Unknown Organization [facility] Address [address] [facility] [place] [address] Phone [phone] Care Team Providers Care Stem Threshing Machine Operator Name Role Phone Unavailable Primary Care Provider Unavailabl e Reason for Visit * Reason Comments Outpatient Testing Encounter Details Date Type Department Care Team (Late st Contact Info) Description 02/15/2024 11:10 AM EDT Laboratory [facility], [facility] [place] [address] [place], Specimen Drop [facility] [address] [facility] [place] [address] AMS (altered mental status) Allergies Active Allergy [...] CASE MANAGEMENT 11/26/200801/31 Overview: Janina Arizmendi RN [phone] Cerebrovascular accident (CV A) due to thrombosis [...] D LEVEL ONCE IN A LIFETIME-USE SMARTSET# [id number] Completed 10/05/2023, 04/07/2021, 02/05/2020, Additional history exists [...]
--- OUTSIDE RECORDS SUMMARY | 2024-02-15 23:05 | External Medical Summary | Summary of Care ---
Author Name Unknown Organization [facility] Address [address] [place] [address] Phone [phone] Care Team Providers Care Glove Machine Operator Name Role Phone Unavailable Primary Care Provider Unavailabl e Reason for Visit * Reason Onset Date Comments Retirement Visit 02/07/2024 Regulatory Encounter Details Date Type Department Care Team (Late st Contact Info) Description 02/07/2024 9:00 AM EDT Retirement Visit [address] [address] Brigitte Nieto PA-C [address] [place] [address] Moderate late onset Alzheimer's dementia with agitation [...] MANAGEMENT 11/26/200801/31 Overview: Janina Arizmendi, RN [phone] Cerebrovascular accident (CV A) due to thrombosis [...] as of this encounter Plan of Treatment Health Maintenance [...] D LEVEL ONCE IN A LIFETIME-USE SMARTSET# [id number] Completed 10/05/2023, 04/07/2021, 02/05/2020, Additional history exists [...]
--- OUTSIDE RECORDS SUMMARY | 2024-02-15 23:05 | External Medical Summary | Continuity Of Care Document ---
Author Name Unknown Address [address] [place] [address] Organization [facility]) Care Team Providers Care House Wirer Name Role Phone Cally Mills Primary Care Provider [phone] Problems Code Description Start Date End Date [...] weight Temperature SpO2 Blood Sugar Pulse Respirations 27335 718 92348 4 113.00 NI 63758 806 34471 1 80100 807 15476 1 76.00 mm[Hg] - Sitting 149.00 mm[Hg] - Sitting 79.00/ min 807 68442 1 118.40 NI Immunizations Vaccine Date Status COVID-19 05/23/2020 Completed COVID-19 06/13/2020 Completed COVID-19 02/09/2021 Completed COVID-19 09/29/2021 Completed COVID-19 01/26/2022 Completed Influenza 01/28/2018 Completed Influenza 01/27/2019 Completed Influenza 01/21/2020 Completed Influenza 01/27/2021 Completed Influenza 02/08/2022 Completed Influenza 01/26/2023 Completed (PCV20)Pneumococcal 11/05/2023 Completed
--- OUTSIDE RECORDS SUMMARY | 2024-02-15 23:05 | External Medical Summary | Continuity Of Care Document ---
Author Name Unknown Address [address] [place] [address] Organization [facility]) Care Team Providers Care Nuclear Monitoring Technician Name Role Phone Cally Mills Primary Care Provider [phone] Problems Code Description Start Date End Date [...] weight Temperature SpO2 Blood Sugar Pulse Respirations 29430 806 49549 1 807 25459 1 76.00 mm[Hg] - Sitting 149.00 mm[Hg] - Sitting 79.00/ min 807 90333 1 118.40 NI 826 67534 6 74.00 mm[Hg] - Sitting 171.00 mm[Hg] - Sitting 103.00 /min Immunizations Vaccine Date Status COVID-19 05/23/2020 Completed COVID-19 06/13/2020 Completed COVID-19 02/09/2021 Completed COVID-19 09/29/2021 Completed COVID-19 01/26/2022 Completed Influenza 01/28/2018 Completed Influenza 01/27/2019 Completed Influenza 01/21/2020 Completed Influenza 01/27/2021 Completed Influenza 02/08/2022 Completed Influenza 01/26/2023 Completed (PCV20)Pneumococcal 11/05/2023 Completed
--- OUTSIDE RECORDS SUMMARY | 2024-02-15 23:05 | External Medical Summary | Continuity Of Care Document ---
Author Name Unknown Address [address] [place] [address] Organization [facility]) Care Team Providers Care Bosom Presser Name Role Phone Cally Mills Primary Care Provider [phone] Problems Code Description Start Date End Date [...] weight Temperature SpO2 Blood Sugar Pulse Respirations 23261 718 24756 4 113[place]00 [place] [address] 806 11875 1 87022 807 44869 1 76.00 mm[Hg] - Sitting 149.00 mm[Hg] - Sitting 79.00/ min 807 27200 1 118.40 NI Immunizations Vaccine Date Status COVID-19 05/23/2020 Completed COVID-19 06/13/2020 Completed COVID-19 02/09/2021 Completed COVID-19 09/29/2021 Completed COVID-19 01/26/2022 Completed Influenza 01/28/2018 Completed Influenza 01/27/2019 Completed Influenza 01/21/2020 Completed Influenza 01/27/2021 Completed Influenza 02/08/2022 Completed Influenza 01/26/2023 Completed (PCV20)Pneumococcal 11/05/2023 Completed
--- OUTSIDE RECORDS SUMMARY | 2024-02-15 23:05 | External Medical Summary | Summary of Care ---
Author Name Unknown Organization [facility] Address [address] [facility] [place] [address] Phone [phone] Care Team Providers Care Oxygraph Operator Name Role Phone Unavailable Primary Care Provider Unavailabl e Encounter Details Date Type Department Care Team (Late st Contact Info) Description 02/13/2024 Orders Only Lab Mobile Phlebotomy [facility] [address] [facility] [place] [address] Cally Mills MD [address] [place] [address] [place] [id number] Vitamin B12 deficiency anemia* Allergies Active Allergy Reactions Criticality Noted Date Comments Gabapentin 02/07/2024 documented as of this encounter (statuses as of 02/13/2024) Medications Medication Sig Dispensed Refills Start Date [...] and 1 Tablet before bedtime. 02/12/2024 Active documented as of this encounter (statuses as of 02/13/2024) Active Problems Problem Noted Date Diagnosed Date [...] as of this encounter (statuses as of 02/13/2024) Resolved Problems Problem Noted Date Diagnosed Date Resolved Date Aortic stenosis 03/05/2012 02/10/2013 Hypokalemia 01/29/2012 10/03/2023 HTN, goal below 130/80 07/19/201001/28 HTN, goal below 140/90 02/19/200907/19 Overview: Modified per HTN Taxonomy. 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 documented as of this encounter (statuses as of 02/13/2024) Immunizations Name Administration Dates Next Due Pneumococcal [...] as of this encounter Plan of Treatment Upcoming Encounters Date Type Department Care Team (Late st Contact Info) Description 02/13/2024 5:00 AM EDT Laboratory Lab Mobile Phlebotomy [facility] [address] [place] [address] [place] [address] Arrived Scheduled Orders Name Type Priority Associated Diagnoses Orde r Schedule VITAMIN B12 Lab Routine Vitamin B12 deficiency anemia Expected: 02/13/2024, Expires: 02/12/2025 Health Maintenance Due Date Last Done Comments [...] D LEVEL ONCE IN A LIFETIME-USE SMARTSET# [id number] Completed 10/05/2023, 04/07/2021, 02/05/2020, Additional history exists [...] as of this encounter Visit Diagnoses Diagnosis Vitamin B12 deficiency anemia- Primary Other vitamin B12 deficiency anemia documented in this encounter
--- OUTSIDE RECORDS SUMMARY | 2024-02-15 23:05 | External Medical Summary | Summary of Care ---
Author Name Unknown Organization [facility] Address [address] [facility] [place] [address] Phone [phone] Care Team Providers Care Sales And Marketing Manager Name Role Phone Unavailable Primary Care Provider Unavailabl e Reason for Visit * Reason Comments Outpatient Testing Encounter Details Date Type Department Care Team (Late st Contact Info) Description 02/15/2024 11:10 AM EDT Laboratory [facility], [facility] [address] [facility] [address] [place], Specimen Drop Off [facility] [address] [facility] [place] [address] AMS (altered mental status) Allergies Active Allergy [...] CASE MANAGEMENT 11/26/200801/31 Overview: Janina Arizmendi RN [phone] Cerebrovascular accident (CV A) due to thrombosis [...] D LEVEL ONCE IN A LIFETIME-USE SMARTSET# 03999 Completed 10/05/2023, 04/07/2021, 02/05/2020, Additional history exists [...]
--- OUTSIDE RECORDS SUMMARY | 2024-02-15 23:05 | External Medical Summary | Summary of Care ---
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)*; Type 2 diabetes mellitus with hemoglobin A1c goal of less than 8.0% (HCC); CEREBROVASCULAR DZ, POST-STROKE; Dyslipidemia, goal LDL below 100; RLS (restless legs syndrome); Senile osteoporosis; Aortic valve sclerosis; BENIGN HYPERTENSION Allergies No known active allergiesdocumented as of this encounter (statuses as of 12/12/2023) Medications Medication Sig Dispensed Refills Start Date [...] as of this encounter (statuses as of 12/12/2023) Active Problems Problem Noted Date Diagnosed Date [...] as of this encounter (statuses as of 12/12/2023) Resolved Problems Problem Noted Date Diagnosed Date Resolved Date Aortic stenosis 03/05/2012 02/10/2013 Hypokalemia 01/29/2012 10/03/2023 HTN, goal below 130/80 07/19/201001/28 HTN, goal below 140/90 02/19/200907/19 Overview: Modified per HTN Taxonomy. 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 documented as of this encounter (statuses as of 12/12/2023) Immunizations Name Administration Dates Next Due Pneumococcal Polysaccharide PPV23 (Pneumovax) 07/19/2010,07/16/2009(Deferred: Patient Refused) Seasonal Influenza, Split, I IV3, With Preserve, Inj 02/10/2013,01/29/2012,01/17/2011,01/17,01/08/2009,02/12/2008,03/04/2007 TD - Tetanus/Diptheria (ADULT) 09/16/2007 documented [...] as of this encounter Progress Notes * Cally Mills MD - 12/12/2023 1:53 PM EDT Regulatory Visit TRANSITION EVENT: Type: Regulatory visit Date: December 11 Code Status: No Code Name: Moon Allen Date of : 1935 This note pertains to care provided at [facility]. Please see facility medical record for original note. This note is not to be edited or addended in [facility]. Editing or addending needs to occur in [...] WO CONTRAST 11/16/08 nonspecific hypodensities on right, [facility] ECHO EXAM OF HEART (2D ECHO) 02/29/12 LVEF 60%, mild , [facility] EKG 02/29/12 NSR, [facility] FRAGMENT KIDNEY STONE BY SHOCK WAVE IOF MRI-BRAIN W/WO CONTRAST 02/29/12 normal, fd IOF US CAROTID DUPLEX BILAT 02/29/12 no significant stenosis, [facility] MRA HEAD W WO CONTRAST 11/16/08 unremarkable, [facility] MRI BRAIN W WO CONTRAST 11/16/08 small acute infarct right parietal deep white matter, [facility] TOTAL ABD HYSTERECTOMY W/WO REMOVAL OF TUBE(S) age 44 no cancer, took both ovary VASC DUPLEX CAROTID BILAT 11/16/08 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 (Adult - for ages 18 years and over): Not on file Housing Stability: Not on file Review of patient's allergies indicates: No Known Allergies She is now not having any current problems.. Is not having pain issues. Is having current behavioral problems. Including agitation, having BMs in bed or taking stools out of briefs, and is being treated with medications, redirection, comforting patient by the nursing staff, and seen by psychiatry. Was started on oxcarbazepine 75 mg daily and this was increased to 150 mg on 11/19/23. Results for orders placed or performed in visit on 11/12/23 VITAMIN B12 Result Value Ref Range Vitamin B12 1,782 (H) 232 - 1,245 pg/mL Hemoglobin AIC Results: Lab Results Component Value Date/Time HEMOGLOBIN A1C - [facility] 6.2 (H) 10/01/2023 05:48 AM HEMOGLOBIN A1C - [facility] 6.5 (H) 02/05/2020 07:29 AM CBC Results: Results for orders placed or [...] K/uL MPV 11.3 6.6 - 11.1 fL Basic Panel Results: Results for orders placed or performed in visit on 10/01/23 BASIC METABOLIC PANEL Result Value Ref Range BUN 28 (H) 6 - 20 mg/dL Creatinine 0.8 0.5 - 1.0 mg/dL Estimated Glomerular Filtration Rate 70 >=60 mL/min Sodium 141 135 - 146 mmol/L Potassium 3.7 3.5 - 5.1 mmol/L Chloride 102 98 - 107 mmol/L CO2 29 22 - 32 mmol/L Anion Gap 10 7 - 15 mmol/L Glucose 113 70 - 120 mg/dL Calcium 9.8 8.4 - 10.2 mg/dL Lab Results Component Value Date/Time TSH - [facility] 2.64 10/05/2023 06:00 AM TSH - [facility] 3.18 04/07/2021 06:01 AM TSH - [facility] 4.54 (H) 02/05/2020 07:29 AM ROS: Unable to obtain secondary to dementia O: I reviewed the most recent facilities vitals. General: alert, no distress, well nourished, and well developed Head: Normocephalic, No masses, lesions, tenderness or abnormalities Neuro: no focal motor/sensory deficits, alert, cooperative, confused Eye Exam: PERRLA, extraocular movements intact, conjunctiva are pink and non- injected, sclera clear Ears: External ears normal Nose: no mucosal erythema, no mucosal edema, no purulent discharge Oropharynx: no exudate, no erythema, lips, buccal mucosa, and tongue normal, and mucous membranes are moist Neck: supple, no adenopathy, no bruits Heart: regular rate & rhythm, no gallops, and 3/6 holosystolic low pitched harsh murmur aortic area Lungs: chest symmetric with normal AP diameter, no chest deformities noted, no chest wall tenderness, lungs clear to auscultation Abdomen: abdomen soft, non-tender, normal bowel sounds, and no masses or organomegaly Extremities: no edema, no clubbing, no cyanosis A: 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 Now on oxcarbazepine 150 mg daily and nonpharmacologic measures in place as well. Followed bypsychiatry. Type 2 diabetes mellitus with hemoglobin A1c goal of less than 8.0% ([facility])--off metformin due to lowA1C. CEREBROVASCULAR DZ, POST-STROKE--continue Plavix 75 mg daily. Dyslipidemia, goal LDL below 100--continue simvastatin 40 mg daily. RLS (restless legs syndrome)--continue ropinirole 0.5 mg at bedtime. Senile osteoporosis--continue vitamin D supplement. Aortic valve sclerosis--stable BENIGN HYPERTENSION--controlled with metoprolol tartrate 12.5 mg twice daily and HCTZ 25 mg daily. P: Medications reviewed. Please refer to MAR in the facility's medical record for the most up-to-date medication list. Continue present medication(s): Reviewed skilled nursing record for: vital signs, weight, bowel, and bladder function, and ADLs. Labs reviewed Continue current treatment plan as ordered Continue to follow up as needed and as scheduled [facility] Given: n/a Electronically signed by: Cally Mills MD I spent a total of 31 minutes coordinating, documenting, and providing care for [...] 02/10/2014 02/10/2013 DXA Scan 10/10/2014 10/10/2012, 10/01/2009 COVID-19 Vaccine (1 - 2022- season) 2022 *BISPHONATE OR OTHER ACCEPTABLE MEDICATION NEEDED FOR OSTEOPOROSIS (REFER TO SMARTSET #1146) 10/06/2023 Influenza Vaccine (FLU shot) (#1) 2023 02/10/2013, 01/29/2012, 01/17/2011, Additional history exists HbA1c 04/01/2024 10/01/2023, 02/05/2020 VITAMIN D LEVEL ONCE IN A LIFETIME-USE SMARTSET# 10912 Completed 10/05/2023, 04/07/2021, 02/05/2020, Additional history exists [...] onset Alzheimer's dementia with agitation (HCC)- Primary Type 2 diabetes mellitus with hemoglobin A1c goal of less than 8.0% (HCC) CEREBROVASCULAR DZ, POST-STROKE Cerebral atherosclerosis Dyslipidemia, goal LDL below 100 Other and unspecified hyperlipidemia RLS (restless legs syndrome) Restless legs syndrome (RLS) Senile osteoporosis Aortic valve sclerosis Aortic valve disorders BENIGN HYPERTENSION Unspecified essential hypertension documented in this encounter
--- OUTSIDE RECORDS SUMMARY | 2024-02-15 23:05 | External Medical Summary | Continuity Of Care Document ---
Author Name Unknown Address [address] [place] [address] Organization [facility]) Care Team Providers Care Astro Technician Name Role Phone Cally Mills Primary Care Provider [phone] Problems Code Description Start Date End Date [...] weight Temperature SpO2 Blood Sugar Pulse Respirations 12835 718 03927 4 113.00 [place] [address] 806 05828 1 67813 807 02207 1 76.00 mm[Hg] - Sitting 149.00 mm[Hg] - Sitting 79.00/ min 807 90180 1 118.40 NI Immunizations Vaccine Date Status COVID-19 05/23/2020 Completed COVID-19 06/13/2020 Completed COVID-19 02/09/2021 Completed COVID-19 09/29/2021 Completed COVID-19 01/26/2022 Completed Influenza 01/28/2018 Completed Influenza 01/27/2019 Completed Influenza 01/21/2020 Completed Influenza 01/27/2021 Completed Influenza 02/08/2022 Completed Influenza 01/26/2023 Completed (PCV20)Pneumococcal 11/05/2023 Completed
--- OUTSIDE RECORDS SUMMARY | 2024-02-15 23:05 | External Medical Summary | Summary of Care ---
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)*; CEREBROVASCULAR DZ, POST-STROKE; Type 2 diabetes mellitus with hemoglobin A1c goal of less than 8.0% (HCC) Allergies No known active allergiesdocumented as of this encounter (statuses as of 01/14/2024) Medications Medication Sig Dispensed Refills Start Date [...] as of this encounter (statuses as of 01/14/2024) Active Problems Problem Noted Date Diagnosed Date [...] as of this encounter (statuses as of 01/14/2024) Resolved Problems Problem Noted Date Diagnosed Date Resolved Date Aortic stenosis 03/05/2012 02/10/2013 Hypokalemia 01/29/2012 10/03/2023 HTN, goal below 130/80 07/19/201001/28 HTN, goal below 140/90 02/19/200907/19 Overview: Modified per HTN Taxonomy. 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 documented as of this encounter (statuses as of 01/14/2024) Immunizations Name Administration Dates Next Due Pneumococcal [...] D LEVEL ONCE IN A LIFETIME-USE SMARTSET# 07444 Completed 10/05/2023, 04/07/2021, 02/05/2020, Additional history exists [...] (HCC)- Primary CEREBROVASCULAR DZ, POST-STROKE Cerebral atherosclerosis Type 2 diabetes mellitus with hemoglobin A1c goal of less than 8.0% (HCC) documented in this encounter
--- OUTSIDE RECORDS SUMMARY | 2024-02-15 23:05 | External Medical Summary | Continuity Of Care Document ---
Author Name Unknown Address [address] [place] [address] Organization [facility]) Care Team Providers Care Blacking Machine Operator Name Role Phone Cally Mills Primary Care Provider [phone] Problems Code Description Start Date End Date [...] weight Temperature SpO2 Blood Sugar Pulse Respirations 38360 718 60359 4 113[place]00 [place] [address] 806 94111 1 58609 807 62211 1 76.00 mm[Hg] - Sitting 149.00 mm[Hg] - Sitting 79.00/ min 807 73480 1 118.40 NI Immunizations Vaccine Date Status COVID-19 05/23/2020 Completed COVID-19 06/13/2020 Completed COVID-19 02/09/2021 Completed COVID-19 09/29/2021 Completed COVID-19 01/26/2022 Completed Influenza 01/28/2018 Completed Influenza 01/27/2019 Completed Influenza 01/21/2020 Completed Influenza 01/27/2021 Completed Influenza 02/08/2022 Completed Influenza 01/26/2023 Completed (PCV20)Pneumococcal 11/05/2023 Completed
--- OUTSIDE RECORDS SUMMARY | 2024-02-15 23:05 | External Medical Summary | Continuity Of Care Document ---
Author Name Unknown Address [address] [place] [address] Organization [facility]) Care Team Providers Care Clock And Watch Hands Mounter Name Role Phone Cally Mills Primary Care Provider [phone] Problems Code Description Start Date End Date [...] weight Temperature SpO2 Blood Sugar Pulse Respirations 71362 806 88699 1 807 53768 1 76.00 mm[Hg] - Sitting 149.00 mm[Hg] - Sitting 79.00/ min 807 71849 1 118.40 NI 826 22852 6 74.00 mm[Hg] - Sitting 171.00 mm[Hg] - Sitting 103.00 /min Immunizations Vaccine Date Status COVID-19 05/23/2020 Completed COVID-19 06/13/2020 Completed COVID-19 02/09/2021 Completed COVID-19 09/29/2021 Completed COVID-19 01/26/2022 Completed Influenza 01/28/2018 Completed Influenza 01/27/2019 Completed Influenza 01/21/2020 Completed Influenza 01/27/2021 Completed Influenza 02/08/2022 Completed Influenza 01/26/2023 Completed (PCV20)Pneumococcal 11/05/2023 Completed
--- OUTSIDE RECORDS SUMMARY | 2024-02-15 23:05 | External Medical Summary | Summary of Care ---
Author Name Unknown Organization [facility] Address [address] [facility] [place] [address] Phone [phone] Care Team Providers Care Job Analysis Manager Name Role Phone Unavailable Primary Care Provider Unavailabl e Encounter Details Date Type Department Care Team (Late st Contact Info) Description 02/15/2024 Orders Only Lab Mobile Phlebotomy [facility] [address] [place] [address] Cally Mills MD [address] [place] [address] [place] [id number] Vitamin B12 deficiency anemia* Allergies Active Allergy [...] CASE MANAGEMENT 11/26/200801/31 Overview: Janina Arizmendi RN [phone] Cerebrovascular accident (CV A) due to thrombosis [...] Team (Late st Contact Info) Description 02/15/2024 5:00 AM EDT Laboratory Lab Mobile Phlebotomy [facility] [address] [place] [address] [place] [address] Arrived Scheduled Orders Name Type Priority Associated Diagnoses Orde r Schedule VITAMIN B12 Lab Routine Vitamin B12 deficiency anemia Expected: 02/15/2024, Expires: 02/14/2025 Health Maintenance Due Date Last Done Comments [...] D LEVEL ONCE IN A LIFETIME-USE SMARTSET# [id number] Completed 10/05/2023, 04/07/2021, 02/05/2020, Additional history exists [...]
--- OUTSIDE RECORDS SUMMARY | 2024-02-15 23:05 | External Medical Summary | Summary of Care ---
Author Name Unknown Organization [facility] Address [address] [place] [address] Phone [phone] Care Team Providers Care World History Teacher Name Role Phone Unavailable Primary Care Provider Unavailabl e Reason for Visit * Reason Onset Date Comments [facility] Visit 12/18/2023 Encounter Details Date Type Department Care Team (Latest Contact Info) Description 12/18/2023 10:00 AM EDT [facility] Visit [facility] [address] [place] [address] Gilda Castaneda PA-C [address] [place] [address] Fall, initial encounter*; Abrasion of right knee, initial encounter; Contusion of head, unspecified part of head, initial encounter; Dermatitis associated with moisture; 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); Type 2 diabetes mellitus with hemoglobin A1c goal of less than 8.0% (HCC) Allergies No known active allergiesdocumented as of this encounter (statuses as of 12/18/2023) Medications Medication Sig Dispensed Refills Start Date [...] as of this encounter (statuses as of 12/18/2023) Active Problems Problem Noted Date Diagnosed Date [...] as of this encounter (statuses as of 12/18/2023) Resolved Problems Problem Noted Date Diagnosed Date Resolved Date Aortic stenosis 03/05/2012 02/10/2013 Hypokalemia 01/29/2012 10/03/2023 HTN, goal below 130/80 07/19/201001/28 HTN, goal below 140/90 02/19/200907/19 Overview: Modified per HTN Taxonomy. 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 documented as of this encounter (statuses as of 12/18/2023) Immunizations Name Administration Dates Next Due Pneumococcal [...] (REFER TO SMARTSET #1146) 10/06/2023 COVID-19 Vaccine (1 - 2022- season) 2023 Influenza Vaccine (FLU shot) (#1) 2023 02/10/2013, 01/29/2012, 01/17/2011, Additional history exists HbA1c 04/01/2024 10/01/2023, 02/05/2020 VITAMIN D LEVEL ONCE IN A LIFETIME-USE SMARTSET# 49178 Completed 10/05/2023, 04/07/2021, 02/05/2020, Additional history exists [...] as of this encounter Visit Diagnoses Diagnosis Fall, initial encounter- Primary Abrasion of right knee, initial encounter Contusion of head, unspecified part of head, initial encounter Dermatitis associated with moisture 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
--- OUTSIDE RECORDS SUMMARY | 2024-02-15 23:05 | External Medical Summary | Summary of Care ---
Author Name Unknown Organization [facility] Address [address] [facility] [place] [address] Phone [phone] Care Team Providers Care Librarian Head Name Role Phone Unavailable Primary Care Provider Unavailabl e Reason for Visit * Reason Onset Date Comments Complicated Acute Visit 02/15/2024 Encounter Details Date Type Department Care Team (Latest Contact Info) Description 02/15/2024 7:30 AM EDT Residential Visit [facility] [address] [place] [address] Gilda Castaneda PA-C [address] [place] [address] Altered mental status, unspecified altered mental status type*; Fever, unspecified fever cause; Fall, initial encounter; Contusion of forehead, initial encounter; 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 02/15/2024 Active OXcarbazepine 150 MG Oral Tablet (Trileptal) Take 1 Tablet by mouth in the morning and 1 Tablet before bedtime. 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
--- OUTSIDE RECORDS SUMMARY | 2024-02-15 23:05 | External Medical Summary | Continuity Of Care Document ---
Author Name Unknown Address [address] [place] [address] Organization [facility]) Care Team Providers Care Process Safety Manager Name Role Phone Cally Mills Primary Care Provider [phone] Problems Code Description Start Date End Date [...] weight Temperature SpO2 Blood Sugar Pulse Respirations 33194 718 22934 4 113.00 [place] [address] 806 01602 1 46644 807 88293 1 76.00 mm[Hg] - Sitting 149.00 mm[Hg] - Sitting 79.00/ min 807 35306 1 118.40 NI Immunizations Vaccine Date Status COVID-19 05/23/2020 Completed COVID-19 06/13/2020 Completed COVID-19 02/09/2021 Completed COVID-19 09/29/2021 Completed COVID-19 01/26/2022 Completed Influenza 01/28/2018 Completed Influenza 01/27/2019 Completed Influenza 01/21/2020 Completed Influenza 01/27/2021 Completed Influenza 02/08/2022 Completed Influenza 01/26/2023 Completed (PCV20)Pneumococcal 11/05/2023 Completed
--- OUTSIDE RECORDS SUMMARY | 2024-02-15 23:06 | External Medical Summary | Summary of Care ---
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 11/13/2023 Active documented as of this encounter (statuses as of 11/13/2023) Active Problems Problem Noted Date Diagnosed Date DNR (do not resuscitate) 10/07/2023 Type 2 diabetes mellitus wit h hemoglobin A1c goal of less than 8.0% 10/03/2023 RLS (restless legs syndrome) 10/03/2023 Senile osteoporosis 10/03/2023 Vitamin D deficiency 10/03/2023 Moderate late onset Alzheime r's dementia without behavioral disturbance, psychotic disturbance, mood disturbance, or anxiety 10/03/2023 Vitamin B12 deficiency 10/03/2023 AK (actinic [...] as of this encounter (statuses as of 11/13/2023) Resolved Problems Problem Noted Date Diagnosed Date Resolved Date Aortic stenosis 03/05/2012 02/10/2013 Hypokalemia 01/29/2012 10/03/2023 HTN, goal below 130/80 07/19/201001/28 HTN, goal below 140/90 02/19/200907/19 Overview: Modified per HTN Taxonomy. 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 documented as of this encounter (statuses as of 11/13/2023) Immunizations Name Administration Dates Next Due Pneumococcal [...] 1952 Zoster Vaccines (1 of 2) 1984 DTaP,Tdap,and Td Vaccines (1 - Tdap) 09/17/2007 09/16/2007 Pneumococcal Vaccine: 65+ Years (2 of 2 - PCV) 07/20/2011 07/19/2010 Depression Screening 02/10/2014 02/10/2013 DXA Scan 10/10/2014 10/10/2012, 10/01/2009 COVID-19 Vaccine (1 - 2022-24 season) 2022 *BISPHONATE OR OTHER ACCEPTABLE MEDICATION NEEDED FOR OSTEOPOROSIS (REFER TO SMARTSET #1146) 10/06/2023 Influenza Vaccine (FLU shot) (#1) 2023 02/10/2013, 01/29/2012, 01/17/2011, Additional history exists HbA1c 04/01/2024 10/01/2023, 02/05/2020 VITAMIN D LEVEL ONCE IN A LIFETIME-USE SMARTSET# 83572 Completed 10/05/2023, 04/07/2021, 02/05/2020, Additional history exists [...] onset Alzheimer's dementia with agitation (HCC)- Primary Dermatitis Contact dermatitis and other eczema, due to unspecified cause documented in this encounter
--- OUTSIDE RECORDS SUMMARY | 2024-02-15 23:06 | External Medical Summary | Summary of Care ---
Author Name Unknown Organization [facility] Address [address] [facility] [place] [address] Phone [phone] Care Team Providers Care Bed And Breakfast Cook Name Role Phone Unavailable Primary Care Provider Unavailabl e Encounter Details Date Type Department Care Team (Late st Contact Info) Description 11/09/2023 Orders Only Lab Mobile Phlebotomy [facility] [email or web address] [email or web address] [address] Cally Mills MD [address] [place] [address] [place] [address] Anemia due to vitamin B12 deficiency, unspecified B12 deficiency type*; Other vitamin B12 deficiency anemia Allergies No known active allergiesdocumented as of this encounter (statuses as of 11/09/2023) Medications Medication Sig Dispensed Refills Start Date [...] Pain, Severe or Pain, Moderate. 10/03/2023 Active Vitamin B-12 500 MCG Oral Tablet (vitamin B-12) Take 1 Tablet by mouth in the morning. Active Sennosides-Docusate Sodium 8.6-50 MG Oral Tablet (Senna S) Take 2 Tablets by mouth in the morning and 2 Tablets before bedtime. 10/29/2023 Active documented as of this encounter (statuses as of 11/09/2023) Active Problems Problem Noted Date Diagnosed Date [...] as of this encounter (statuses as of 11/09/2023) Resolved Problems Problem Noted Date Diagnosed Date Resolved Date Aortic stenosis 03/05/2012 02/10/2013 Hypokalemia 01/29/2012 10/03/2023 HTN, goal below 130/80 07/19/201001/28 HTN, goal below 140/90 02/19/200907/19 Overview: Modified per HTN Taxonomy. ACTIVE CASE MANAGEMENT 11/26/200801/31 Overview: Janina Arizmendi, RN [phone] Cerebrovascular accident (CV A) due to thrombosis of cerebral artery 11/26/2008 10/03/2023 Overview: Right parietal CVA 11/17/08 Dyslipidemia, goal to be determined 09/13/2006 07/19/2010 Cerebrovascular event, ill-d efined, within last 8 weeks 04/06/2009 Overview: Modified by CVA Protocol #8. documented as of this encounter (statuses as of 11/09/2023) Immunizations Name Administration Dates Next Due Pneumococcal [...] Care Team (Late st Contact Info) Description 11/09/2023 5:10 AM EDT Laboratory Lab Mobile Phlebotomy [facility] [address] [place] [address] [place] [address] Arrived Scheduled Orders Name Type Priority Associated Diagnoses Orde r Schedule VITAMIN B12 Lab Routine Anemia due to vitamin B12 deficiency, unspecified B12 deficiency type Other vitamin B12 deficiency anemia Expected: 11/09/2023, Expires: 11/08/2024 Health Maintenance Due Date Last Done Comments [...] D LEVEL ONCE IN A LIFETIME-USE SMARTSET# 74218 Completed 10/05/2023, 04/07/2021, 02/05/2020, Additional history exists [...] as of this encounter Visit Diagnoses Diagnosis Anemia due to vitamin B12 deficiency, unspecified B12 deficiency type- Primary Other vitamin B12 deficiency anemia documented in this encounter
--- OUTSIDE RECORDS SUMMARY | 2024-02-15 23:06 | External Medical Summary ---
Author Name Unknown Address Unknown Organization K01:[facility] [place] [address] [place] [address] Laboratory Report Ordering Provider Test Date Status YAKELIN MCNAMARA 11/12/2023 05:22:00 Final Observation Date Value Abnormality Reference (Units ) Status Vitamin B12 11/12/2023 05:22:00 1781 Above high normal 232-1245 (pg/mL) Final Performing Location LABORATORY [facility] - [address] [place] [address]
--- OUTSIDE RECORDS SUMMARY | 2024-02-15 23:06 | External Medical Summary | Continuity Of Care Document ---
Author Name Unknown Address [address] [place] [address] Organization [facility] ( ) Care Team Providers Care Licensing Coordinator Name Role Phone Cally Mills Primary Care Provider [phone] Problems Code Description Start Date End Date Status E83.52 Hypercalcemia 09/27/2023 Active E11.9 Type 2 diabetes mellitus without complications 09/27/2023 Active I35.0 Nonrheumatic aortic (valve) stenosis 09/27/2023 Active E55.9 Vitamin D deficiency, unspecified 09/27/2023 Active E87.6 Hypokalemia 09/27/2023 Active I10. Essential (primary) hypertension 09/27/2023 Active . 0000 Active VITAL SIGNS Date Time Diastolic blood pressure Systolic blood pressure Body height Body weight Temperature SpO2 Blood Sugar Pulse Respirations 527 00979 9 58.00 mm[Hg] - Sitting 104.00 mm[Hg] - Sitting 76.00/ min 528 27658 9 63.00 mm[Hg] - Sitting 129.00 mm[Hg] - Sitting 73.00/ min 529 76550 2 66.00 mm[Hg] - Sitting 118.00 mm[Hg] - Sitting 84.00/ min 530 38808 2 68.00 mm[Hg] - Sitting 122.00 mm[Hg] - Sitting 16338 531 84974 8 72.00 mm[Hg] - Sitting 126.00 mm[Hg] - Sitting 62.00/ min 15688 601 96662 2 59.00 mm[Hg] - Sitting 109.00 mm[Hg] - Sitting 120.00 NI 97.50 Oral 76.00/ min 22.00/min 49962 601 26083 3 66.00 mm[Hg] - Sitting 116.00 mm[Hg] - Sitting 25701 602 96230 2 64.00 mm[Hg] - Sitting 118.00 mm[Hg] - Sitting 53096 603 05902 6 50.00 mm[Hg] - Sitting 111.00 mm[Hg] - Sitting 67.00/ min 50425 604 05239 8 61.00 mm[Hg] - Sitting 132.00 mm[Hg] - Sitting 73.00/ min 62034 605 75884 9 70.00 mm[Hg] - Sitting 119.00 mm[Hg] - Sitting 73.00/ min 09341 606 16633 5 71.00 mm[Hg] - Sitting 126.00 mm[Hg] - Sitting 70.00/ min 91242 607 80128 2 55.00 mm[Hg] - Sitting 98.00 mm[Hg] - Sitting 80.00/ min 19386 608 42675 2 66.00 mm[Hg] - Sitting 120.00 mm[Hg] - Sitting 45262 609 78836 1 72.00 mm[Hg] - Sitting 126.00 mm[Hg] - Sitting 97439 610 08571 6 55.00 mm[Hg] - Sitting 120.00 mm[Hg] - Sitting 73.00/ min 86461 611 43816 1 60.00 mm[Hg] - Sitting 89.00 mm[Hg] - Sitting 61.00/ min 07116 612 13907 6 70.00 mm[Hg] - Sitting 116.00 mm[Hg] - Sitting 71.00/ min 45298 613 00920 0 122.00 NI 98.20 Oral 98.00 % 71.00/ min 18.00/min 02299 613 41184 0 59 NI 23534 613 82875 8 59 NI 27910 613 69903 5 98.20 Oral 48456 613 40310 0 70.00 mm[Hg] - Sitting 116.00 mm[Hg] - Sitting 71.00/ min 18.00/min 14549 614 92175 1 98983 614 19997 3 82137 614 43478 0 119.00 NI 86923 614 47529 0 70.00 mm[Hg] - Sitting 116.00 mm[Hg] - Sitting 98.20 Oral 71.00/ min 18.00/min 37099 614 61713 6 74.00 mm[Hg] - Sitting 133.00 mm[Hg] - Sitting 98.30 Ear 95.00 % 82.00/ min 18.00/min 35116 615 12275 5 66.00 mm[Hg] - Sitting 118.00 mm[Hg] - Sitting 98.30 Ear 94.00 % 78.00/ min 18.00/min 95968 615 84178 9 66.00 mm[Hg] - Sitting 118.00 mm[Hg] - Sitting 98.30 Ear 78.00/ min 18.00/min 65479 616 49512 0 72.00 mm[Hg] - Sitting 124.00 mm[Hg] - Sitting 97.00 Ear 96.00 % 75.00/ min 16.00/min 49664 620 87703 6 115.00 NI 91857 620 02778 5 115.00 NI Immunizations Vaccine Date Status COVID-19 05/23/2020 Completed COVID-19 06/13/2020 Completed COVID-19 02/09/2021 Completed COVID-19 09/29/2021 Completed COVID-19 01/26/2022 Completed Influenza 01/28/2018 Completed Influenza 01/27/2019 Completed Influenza 01/21/2020 Completed Influenza 01/27/2021 Completed Influenza 02/08/2022 Completed Influenza 01/26/2023 Completed
--- OUTSIDE RECORDS SUMMARY | 2024-02-15 23:06 | External Medical Summary ---
Author Name Unknown Address Unknown Organization K0G:[facility]ATORY [facility] [address] - [address] [place] [address] Laboratory Report Ordering Provider Test Date Status YAKELIN MCNAMARA 10/05/2023 06:00:00 Final Observation Date Value Abnormality Reference (Units ) Status ALT (Alanine aminotransferase) 10/05/2023 06:00:00 8 Below low normal 10-35 (U/L) Final Performing Location [facility] [address] [place] [address]
--- OUTSIDE RECORDS SUMMARY | 2024-02-15 23:06 | External Medical Summary | Summary of Care ---
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 11/19/2023 Active OXcarbazepine 150 MG Oral Tablet (Trileptal) Take 0.5 Tablets by mouth daily at noon. 11/13/2023 11/19/2023 Discontinued documented as of this encounter (statuses as of 11/19/2023) Active Problems Problem Noted Date Diagnosed Date [...] as of this encounter (statuses as of 11/19/2023) Resolved Problems Problem Noted Date Diagnosed Date Resolved Date Aortic stenosis 03/05/2012 02/10/2013 Hypokalemia 01/29/2012 10/03/2023 HTN, goal below 130/80 07/19/201001/28 HTN, goal below 140/90 02/19/200907/19 Overview: Modified per HTN Taxonomy. ACTIVE CASE MANAGEMENT 11/26/200801/31 Overview: Janina Arizmendi, RN [phone] Cerebrovascular accident (CV A) due to thrombosis of cerebral artery 11/26/2008 10/03/2023 Overview: Right parietal CVA 11/17/08 Dyslipidemia, goal to be determined 09/13/2006 07/19/2010 Cerebrovascular event, ill-d efined, within last 8 weeks 04/06/2009 Overview: Modified by CVA Protocol #8. documented as of this encounter (statuses as of 11/19/2023) Immunizations Name Administration Dates Next Due Pneumococcal [...] Progress Notes * Gilda Castaneda PA-C - 11/19/2023 12:38 PM EDT Name: Moon Allen Date of :1935 TRANSITION EVENT: Type: Non-applicable Date: November 18 Code Status: No Code This note pertains to care provided at [facility]. Please see facility medical record for original note. This note is not to be edited or addended in [facility]. Editing or addending needs to occur in the facilities medical record. Subjective: Moon Allen is a 87 year old female. Patient being seen for recheck of behaviors Chief Complaint Patient presents with Detention Visit HPI: pt has been under assessment for her dementia along with behaviors including agitation towardsstaff with care and pt removing her stools from her briefs and placing them in different places in her room. Pt was begun on Trileptal 75mg Q noon several weeks ago for her agitation. She is currently on Aricept 10mg daily. She saw in house Psychiatry this weekend and no changes made in her medications relating to her behaviors. Vital signs stable. Pt still getting agitated according to staff. BMs are soft and regular. No voiding issues. CBC Results: Results for orders placed or [...] mg/dL Calcium 9.8 8.4 - 10.2 mg/dL Creatinine Results: Lab Results Component Value Date/Time CREATININE - [facility] 0.8 10/01/2023 05:48 AM CREATININE - [facility] 0.8 06/28/2023 06:20 AM CREATININE - [facility] 0.8 04/07/2021 06:01 AM CREATININE - [facility] 0.7 02/05/2020 07:29 AM CREATININE - [facility] 0.7 08/04/2013 07:35 AM CREATININE - [facility] 0.7 01/31/2013 07:41 AM CREATININE-OUTSIDE LAB 0.78 08/03/2013 12:00 AM CREATININE-OUTSIDE LAB 0.8 03/01/2012 12:00 AM Potassium Results: Lab Results Component Value [...] SODIUM - [facility] 140 01/31/2013 07:41 AM TSH Results: Lab Results Component Value Date/Time TSH - [facility] 2.64 10/05/2023 06:00 AM TSH - [facility] 3.18 04/07/2021 06:01 AM TSH - [facility] 4.54 (H) 02/05/2020 07:29 AM Hemoglobin AIC Results: Lab Results Component Value Date/Time HEMOGLOBIN A1C - [facility] 6.2 (H) 10/01/2023 05:48 AM HEMOGLOBIN A1C - [facility] 6.5 (H) 02/05/2020 07:29 AM Patient Active Problem List Diagnosis Calculus of kidney BENIGN HYPERTENSION ADVANCE DIRECTIVE INFORMATION CEREBROVASCULAR DZ, POST-STROKE Dyslipidemia, goal LDL below 100 Aortic valve sclerosis Personal history of other malignant neoplasm of skin AK (actinic keratosis) Type 2 diabetes mellitus with hemoglobin A1c goal of less than 8.0% (HCC) RLS (restless legs syndrome) Senile osteoporosis Vitamin D deficiency Moderate late onset Alzheimer's dementia without behavioral disturbance, psychotic disturbance, mood disturbance, or anxiety (HCC) Vitamin B12 deficiency DNR (do not resuscitate) Past Medical History: Diagnosis Date Calculus of kidney Cerebrovascular event, ill-defined, within last 8 weeks 11/16/08 right parietal CVA Dyslipidemia, goal to be determined HTN, goal below 140/90 Past Surgical History: Procedure Laterality Date CT HEAD/BRAIN WO CONTRAST 11/16/08 nonspecific hypodensities on right, [facility] ECHO EXAM OF HEART (2D ECHO) 02/29/12 LVEF 60%, mild , [facility] EKG 02/29/12 NSR, [facility] FRAGMENT KIDNEY STONE BY SHOCK WAVE IOF MRI-BRAIN W/WO CONTRAST 02/29/12 normal, fd IOF US CAROTID DUPLEX BILAT 02/29/12 no significant stenosis, [facility] MRA HEAD W WO CONTRAST 11/16/08 unremarkable, [facility] MRI BRAIN W WO CONTRAST 11/16/08 small acute infarct right parietal deep white matter, [facility] TOTAL ABD HYSTERECTOMY W/WO REMOVAL OF TUBE(S) age 44 no cancer, took both ovary VASC DUPLEX CAROTID BILAT 11/16/08 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 (Adult - for ages 18 years and over): Not on file Housing Stability: Not on file Review of patient's allergies indicates: No Known Allergies I have reviewed medications and allergies. Please refer to MAR in the facility's medical record forthe most up-to-date medication list as this cannot be edited in [employer] Review of Systems: obtained mostly from staff Constitutional ROS: No change in weight, No weakness, No fatigue and No fevers, sweats, or chills Nose ROS: No nasal stuffiness and No significant epistaxis Mouth/Throat ROS: No thrush or No sore throat Pulmonary ROS: No cough, sputum, or hemoptysis, No wheezing, No shortness of breath and No recent change in breathing Cardiovascular ROS: No chest pain, No shortness of breath, No edema, No palpitations and No syncope Gastrointestinal ROS: No abdominal pain, No change in bowel habits, No significant change in appetite, No nausea, vomiting, diarrhea, or constipation and No dysphagia Skin/Integumentary ROS: No rash and No itching Neurologic ROS: No headaches and No seizures Psychiatric ROS: see HPI Sleep: No sleep disorders OBJECTIVE: PHYSICALEXAM: I reviewed the most recent facilities vitals. General: alert, no distress, well nourished and well developed Eye Exam: Conjunctiva are pink and non-injected, sclera clear Nose: no mucosal erythema, no mucosal edema, no purulent discharge Oropharynx: no exudate, no erythema, lips, buccal mucosa, and tongue normal and mucous membranes are moist Neck: supple, no adenopathy, non-tender, neck veins flat, trachea midline Heart: regular rate & rhythm, no murmurs and no gallops Lungs: normal respiratory rate and rhythm, no chest wall tenderness, lungs clear to auscultation Abdomen: abdomen soft, non-tender, normal bowel sounds and no masses or organomegaly Extremities: no edema, no clubbing, no cyanosis Neuro Exam: alert & oriented x 1 with fluent speech, no focal motor/sensory deficits Skin: skin color, texture, turgor are normal, no rashes or significant lesions ASSESSMENT: 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 Assisted Home Treatment Given: as above Electronically signed by: Gilda Castaneda PA-C Over 35 minutes were spent in this visit more than half the time was spent counselling or coordinating care. documented in this encounter Plan of Treatment [...] D LEVEL ONCE IN A LIFETIME-USE SMARTSET# [id number] Completed 10/05/2023, 04/07/2021, 02/05/2020, Additional history exists [...] onset Alzheimer's dementia with other behavioral disturbance (HCC)- Primary Type 2 diabetes mellitus with hemoglobin A1c goal of less than 8.0% (HCC) CEREBROVASCULAR DZ, POST-STROKE Cerebral atherosclerosis documented in this encounter
--- OUTSIDE RECORDS SUMMARY | 2024-02-15 23:06 | External Medical Summary | Continuity Of Care Document ---
Author Name Unknown Address [address] [place] [address] Organization [facility]) Care Team Providers Care Payroll And Benefits Analyst Name Role Phone Cally Mills Primary Care Provider [phone] Problems Code Description Start Date End Date [...] weight Temperature SpO2 Blood Sugar Pulse Respirations 17235 627 92322 4 114.00 NI 82727 627 45714 1 113.60 NI 00004 702 01092 6 66.00 mm[Hg] - Sitting 98.00 mm[Hg] - Sitting 114.00 NI 99.10 Ear 72.00/ min 98197 704 36526 6 114.70 NI 90302 711 61176 4 115.00 NI 99679 711 82716 1 115.00 NI 55671 718 70753 4 113.00 NI Immunizations Vaccine Date Status COVID-19 05/23/2020 Completed COVID-19 06/13/2020 Completed COVID-19 02/09/2021 Completed COVID-19 09/29/2021 Completed COVID-19 01/26/2022 Completed Influenza 01/28/2018 Completed Influenza 01/27/2019 Completed Influenza 01/21/2020 Completed Influenza 01/27/2021 Completed Influenza 02/08/2022 Completed Influenza 01/26/2023 Completed
--- OUTSIDE RECORDS SUMMARY | 2024-02-15 23:06 | External Medical Summary ---
Author Name Unknown Address Unknown Organization K01:LABORATORY [facility] [place] - [address] [place] [address] Laboratory Report Ordering Provider Test Date Status YAKELIN MCNAMARA 10/05/2023 06:00:00 Final Deficient: <20 ng/mL
Ins ufficient: 20-29 ng/mL
Recommended/Optimum:30-50 ng/mL

Vitamin D intoxication is rare. If suspicious of Vitamin D toxicity, evaluation of serum Calcium and PTH is recommended. Observation Date Value Abnormality Reference (Units ) Status 25-OH Vitamin D total 10/05/2023 06:00:00 50 >19 (ng/mL) Final Performing Location LABORATORY C - [address] [place] [address]
--- OUTSIDE RECORDS SUMMARY | 2024-02-15 23:06 | External Medical Summary | Summary of Care ---
Author Name Unknown Organization [facility] Address [address] [place] [address] Phone [phone] Care Team Providers Care Entertainment Usher Name Role Phone Tello Matthew MD Primary Care Provider Reason for Visit * Reason Onset Date Comments Assisted Visit 10/07/2023 Encounter Details Date Type Department Care Team (Latest Contact Info) Description 10/01/2023 10:30 AM EDT Assisted Visit [facility] [address] [place] [address] Gilda Castaneda PA-C [address] [place] [address] Moderate late onset Alzheimer's dementia without behavioral disturbance, psychotic disturbance, mood disturbance, or anxiety (HCC)*; Urinary incontinence due to cognitive impairment; RLS (restless legs syndrome); Type 2 diabetes mellitus with hemoglobin A1c goal of less than 8.0% (HCC); Vitamin B12 deficiency; Vitamin D deficiency; CEREBROVASCULAR DZ, POST-STROKE Allergies No known active allergiesdocumented as of this encounter (statuses as of 10/07/2023) Medications Medication Sig Dispensed Refills Start Date End Date Status METOPROLOL TARTRATE 25 MG PO TABSIndications:Cerebr ovascular disease, arteriosclerotic, post-stroke TAKE 1/2 TAB TWICE DAILY 90 Tab 1 02/10/2013 Active SIMVASTATIN 40 MG PO TABSIndications:Dyslip idemia, goal LDL below 100 TAKE 1 TABLET ONCE A DAY AT BEDTIME 90 Tab 1 08/03/2013 Active CLOPIDOGREL BISULFATE 75 MG PO TABSIndications:Cerebr ovascular disease, arteriosclerotic, post-stroke TAKE 1 TABLET EVERY DAY 90 Tab 1 08/03/2013 Active documented as of this encounter (statuses as of 10/07/2023) Active Problems Problem Noted Date Diagnosed Date [...] as of this encounter (statuses as of 10/07/2023) Resolved Problems Problem Noted Date Diagnosed Date Resolved Date Aortic stenosis 03/05/2012 02/10/2013 Hypokalemia 01/29/2012 10/03/2023 HTN, goal below 130/80 07/19/201001/28 HTN, goal below 140/90 02/19/200907/19 Overview: Modified per HTN Taxonomy. 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 documented as of this encounter (statuses as of 10/07/2023) Immunizations Name Administration Dates Next Due Pneumococcal [...] Care Team (Late st Contact Info) Description 10/10/2023 11:00 AM EDT Assisted Visit [address] [place] [address] Cally Mills MD [address] [place] [address] [place] [address] Health Maintenance Due Date Last Done Comments Albumin/Creatinine Ratio 1952 Diabetic Eye Exam 1952 Diabetic Foot Exam 1952 Zoster Vaccines (1 of 2) 1984 DTaP,Tdap,and Td Vaccines (1 - Tdap) 09/17/2007 09/16/2007 Pneumococcal Vaccine: 65+ Years (2 of 2 - PCV) 07/20/2011 07/19/2010 Depression Screening 02/10/2014 02/10/2013 DXA Scan 10/10/2014 10/10/2012, 10/01/2009 COVID-19 Vaccine ( season) 2022 *BISPHONATE OR OTHER ACCEPTABLE MEDICATION NEEDED FOR OSTEOPOROSIS (REFER TO SMARTSET #1146) 10/06/2023 Influenza Vaccine (FLU shot) (Season Ended) 2023 02/10/2013, 01/29/2012, 01/17/2011, Additional history exists HbA1c 04/01/2024 10/01/2023, 02/05/2020 VITAMIN D LEVEL ONCE IN A LIFETIME-USE SMARTSET# 99645 Completed 10/05/2023, 04/07/2021, 02/05/2020, Additional history exists GARDASIL-HPV IMMUNIZATION SERIES Aged Out No longer eligible based on patient's age to complete this topic Hepatitis B Aged Out No longer eligi ble based on patient's age to complete this topic MENINGOCOCCAL (MENACTRA/MENVEO) Aged Out No longer eligible based on patient's age to complete this topic documented as of this encounter Medical Devices Not on filedocumented as of this encounter Visit Diagnoses Diagnosis Moderate late onset Alzheimer's dementia without behavioral disturbance, psychotic disturbance, mood disturbance, or anxiety (HCC)- Primary Urinary incontinence due to cognitive impairment Functional urinary incontinence RLS (restless legs syndrome) Restless legs syndrome (RLS) Type 2 diabetes mellitus with hemoglobin A1c goal of less than 8.0% (HCC) Vitamin B12 deficiency Other B-complex deficiencies Vitamin D deficiency Unspecified vitamin D deficiency CEREBROVASCULAR DZ, POST-STROKE Cerebral atherosclerosis documented in this encounter Care Teams Entertainment Usher Relationship Specialty Start Date End Date Tello Matthew MD PCP - General Internal Medicine 09/04/13 10/01/23 documented as of this encounter
--- OUTSIDE RECORDS SUMMARY | 2024-02-15 23:06 | External Medical Summary | Summary of Care ---
Author Name Unknown Organization [facility] Address [address] [place] [address] Phone [phone] Care Team Providers Care Special Library Librarian Name Role Phone Unavailable Primary Care Provider Unavailabl e Reason for Visit * Reason Onset Date Comments [facility] Visit 10/29/2023 Encounter Details Date Type Department Care Team (Latest Contact Info) Description 10/29/2023 9:30 AM EDT [facility] Visit [facility] [address] [place] [address] Gilda Castaneda PA-C [address] [place] [address] Slow transit constipation*; Moderate late onset Alzheimer's dementia without behavioral disturbance, psychotic disturbance, mood disturbance, or anxiety (HCC); Type 2 diabetes mellitus with hemoglobin A1c goal of less than 8.0% (HCC) Allergies No known active allergiesdocumented as of this encounter (statuses as of 10/29/2023) Medications Medication Sig Dispensed Refills Start Date [...] as of this encounter (statuses as of 10/29/2023) Active Problems Problem Noted Date Diagnosed Date [...] as of this encounter (statuses as of 10/29/2023) Resolved Problems Problem Noted Date Diagnosed Date Resolved Date Aortic stenosis 03/05/2012 02/10/2013 Hypokalemia 01/29/2012 10/03/2023 HTN, goal below 130/80 07/19/201001/28 HTN, goal below 140/90 02/19/200907/19 Overview: Modified per HTN Taxonomy. 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 documented as of this encounter (statuses as of 10/29/2023) Immunizations Name Administration Dates Next Due Pneumococcal [...] D LEVEL ONCE IN A LIFETIME-USE SMARTSET# 64032 Completed 10/05/2023, 04/07/2021, 02/05/2020, Additional history exists [...] as of this encounter Visit Diagnoses Diagnosis Slow transit constipation- Primary Moderate late onset Alzheimer's dementia without behavioral disturbance, psychotic disturbance, mood disturbance, or anxiety (HCC) Type 2 diabetes mellitus with hemoglobin A1c goal of less than 8.0% (HCC) documented in this encounter
--- OUTSIDE RECORDS SUMMARY | 2024-02-15 23:06 | External Medical Summary | Summary of Care ---
Author Name Unknown Organization [facility] Address [address] [place] [address] Phone [phone] Care Team Providers Care Public Weigher Name Role Phone Unavailable Primary Care Provider Unavailabl e Reason for Visit * Reason Onset Date Comments Chcf Visit 10/16/2023 Encounter Details Date Type Department Care Team (Latest Contact Info) Description 10/16/2023 10:00 AM EDT [facility] Visit [facility] [address] [place] [address] Gilda Castaneda PA-C [address] [place] [address] Bunion of great toe*; Bony prominence; Moderate late onset Alzheimer's dementia without behavioral disturbance, psychotic disturbance, mood disturbance, or anxiety (HCC) Allergies No known active allergiesdocumented as of this encounter (statuses as of 10/16/2023) Medications Medication Sig Dispensed Refills Start Date [...] Tablet by mouth in the morning. Active documented as of this encounter (statuses as of 10/16/2023) Active Problems Problem Noted Date Diagnosed Date [...] as of this encounter (statuses as of 10/16/2023) Resolved Problems Problem Noted Date Diagnosed Date Resolved Date Aortic stenosis 03/05/2012 02/10/2013 Hypokalemia 01/29/2012 10/03/2023 HTN, goal below 130/80 07/19/201001/28 HTN, goal below 140/90 02/19/200907/19 Overview: Modified per HTN Taxonomy. 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 documented as of this encounter (statuses as of 10/16/2023) Immunizations Name Administration Dates Next Due Pneumococcal [...] Progress Notes * Gilda Castaneda PA-C - 10/16/2023 3:32 PM EDT Name: Moon Allen Date of :1935 TRANSITION EVENT: Type: Non-applicable Date: October 15 Code Status: No Code This note pertains to care provided at [facility]. Please see facility medical record for original note. This note is not to be edited or addended in [employer]. Editing or addending needs to occur in the facilities medical record. Subjective: Moon Allen is a 87 year old female. Patient being seen for redness along bony prominences both feet Chief Complaint Patient presents with [facility] Visit HPI: I was asked to assess pt for staff noting that there is redness and some sensitivity noted along bilateral bunion areas and along bony prominences bilateral feet. No open areas or ulcers. Pt is wearing adequate fitting shoes. Patient does not complain of pain in feet. She has dementia and is poor historian. No chils or fever CBC Results: Results for orders placed or [...] POTASSIUM - [facility] 4.4 01/31/2013 07:41 AM Patient Active Problem List Diagnosis Calculus [...] disturbance, psychotic disturbance, mood disturbance, or anxiety ([facility]) Vitamin B12 deficiency DNR (do not resuscitate) Past Medical History: Diagnosis Date Calculus of kidney Cerebrovascular event, ill-defined, within last 8 weeks 11/16/08 right parietal CVA Dyslipidemia, goal to be determined HTN, goal below 140/90 Past Surgical History: Procedure Laterality Date CT HEAD/BRAIN WO CONTRAST 11/16/08 nonspecific hypodensities on right, [facility] ECHO EXAM OF HEART (2D ECHO) 02/29/12 LVEF 60%, mild , [facility] 02/29/12 NSR, [facility] KIDNEY STONE BY SHOCK WAVE IOF MRI-BRAIN W/WO CONTRAST 02/29/12 normal, [facility] US CAROTID DUPLEX BILAT 02/29/12 no significant stenosis, [facility] MRA HEAD W WO CONTRAST 11/16/08 unremarkable, [facility] MRI BRAIN W WO CONTRAST 11/16/08 small acute infarct right parietal deep white matter, [facility] TOTAL ABD HYSTERECTOMY W/WO REMOVAL OF TUBE(S) age 44 no cancer, took both ovary VASC DUPLEX CAROTID BILAT 11/16/08 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 Review of Systems:obtained mostly from staff Constitutional ROS: No change [...] vomiting, diarrhea, or constipation and No dysphagia Musculoskeletal/Extremities ROS: see HPI Skin/Integumentary ROS: see HPI Neurologic ROS: No headaches and No seizures Psychiatric ROS: No depression, No anxiety and No psychosis + dementia Sleep: No sleep disorders OBJECTIVE: PHYSICALEXAM: I [...] chest wall tenderness, lungs clear to auscultation Pulses: radial=2/4, posterior tibial=2/4 Abdomen: abdomen soft, non-tender, normal bowel sounds and no masses or organomegaly Extremities: there is redness and irriation along bilateral bunion areas and bony prominences both feet. No open areas no edema, no clubbing, no cyanosis Skin: skin color, texture, turgor are normal, ASSESSMENT: Bunion of great toe (Primary) No open area Wear proper fitting shoes Bony prominence Skin prep to bony prominence areas QOD Willl follow Moderate late onset Alzheimer's dementia without behavioral disturbance, psychotic disturbance, mood disturbance, or anxiety (HCC) Stable mood and mentation Continue Arciept as directed PLAN: Reviewed CBC, BMP, Lytes and Continue present medication(s):as ordered. [facility] Given: as above Electronically signed [...] D LEVEL ONCE IN A LIFETIME-USE SMARTSET# 58715 Completed 10/05/2023, 04/07/2021, 02/05/2020, Additional history exists [...] as of this encounter Visit Diagnoses Diagnosis Bunion of great toe- Primary Bunion Bony prominence Moderate late onset Alzheimer's dementia without behavioral disturbance, psychotic disturbance, mood disturbance, or anxiety (HCC) documented in this encounter
--- OUTSIDE RECORDS SUMMARY | 2024-02-15 23:06 | External Medical Summary | Continuity Of Care Document ---
Author Name Unknown Address [address] [place] [address] Organization [facility]) Care Team Providers Care Global Recruiter Name Role Phone Cally Mills Primary Care Provider [phone] Problems Code Description Start Date End Date [...] weight Temperature SpO2 Blood Sugar Pulse Respirations 00307 603 72195 6 50.00 mm[Hg] - Sitting 111.00 mm[Hg] - Sitting 67.00/ min 21554 604 83023 8 61.00 mm[Hg] - Sitting 132.00 mm[Hg] - Sitting 73.00/ min 60346 605 78937 9 70.00 mm[Hg] - Sitting 119.00 mm[Hg] - Sitting 73.00/ min 18905 606 34037 5 71.00 mm[Hg] - Sitting 126.00 mm[Hg] - Sitting 70.00/ min 34804 607 50350 2 55.00 mm[Hg] - Sitting 98.00 mm[Hg] - Sitting 80.00/ min 71891 608 18610 2 66.00 mm[Hg] - Sitting 120.00 mm[Hg] - Sitting 29786 609 19851 1 72.00 mm[Hg] - Sitting 126.00 mm[Hg] - Sitting 46293 610 23000 6 55.00 mm[Hg] - Sitting 120.00 mm[Hg] - Sitting 73.00/ min 70414 611 91947 1 60.00 mm[Hg] - Sitting 89.00 mm[Hg] - Sitting 61.00/ min 89998 612 73781 6 70.00 mm[Hg] - Sitting 116.00 mm[Hg] - Sitting 71.00/ min 51027 613 13891 0 122.00 NI 98.20 Oral 98.00 % 71.00/ min 18.00/min 15641 613 39648 0 59 NI 88119 613 17568 8 59 NI 59048 613 79681 5 98.20 Oral 80627 613 58645 0 70.00 mm[Hg] - Sitting 116.00 mm[Hg] - Sitting 71.00/ min 18.00/min 76966 614 21919 1 93846 614 44528 3 30023 614 65446 0 119.00 NI 41048 614 95152 0 70.00 mm[Hg] - Sitting 116.00 mm[Hg] - Sitting 98.20 Oral 71.00/ min 18.00/min 50676 614 10456 6 74.00 mm[Hg] - Sitting 133.00 mm[Hg] - Sitting 98.30 Ear 95.00 % 82.00/ min 18.00/min 71012 615 57307 5 66.00 mm[Hg] - Sitting 118.00 mm[Hg] - Sitting 98.30 Ear 94.00 % 78.00/ min 18.00/min 54093 615 85755 9 66.00 mm[Hg] - Sitting 118.00 mm[Hg] - Sitting 98.30 Ear 78.00/ min 18.00/min 20514 616 37916 0 72.00 mm[Hg] - Sitting 124.00 mm[Hg] - Sitting 97.00 Ear 96.00 % 75.00/ min 16.00/min 49016 620 18572 6 115.00 NI 83530 620 80359 5 115.00 NI 44323 627 26692 4 114.00 NI 04981 627 34260 1 113.60 NI 51378 702 37591 6 66.00 mm[Hg] - Sitting 98.00 mm[Hg] - Sitting 114.00 NI 99.10 Ear 72.00/ min Immunizations Vaccine Date Status COVID-19 05/23/2020 Completed COVID-19 06/13/2020 Completed COVID-19 02/09/2021 Completed COVID-19 09/29/2021 Completed COVID-19 01/26/2022 Completed Influenza 01/28/2018 Completed Influenza 01/27/2019 Completed Influenza 01/21/2020 Completed Influenza 01/27/2021 Completed Influenza 02/08/2022 Completed Influenza 01/26/2023 Completed
--- OUTSIDE RECORDS SUMMARY | 2024-02-15 23:06 | External Medical Summary | Summary of Care ---
Author Name Unknown Organization [facility] Address [address] [place] [address] Phone [phone] Care Team Providers Care Bill Distributor Name Role Phone Unavailable Primary Care Provider Unavailabl e Reason for Visit * Reason Onset Date Comments Correction Visit - Admission 10/10/2023 Encounter Details Date Type Department Care Team (Latest Contact Info) Description 10/10/2023 11:00 AM EDT Correction Visit [address] [place] [address] Cally Mills MD [address] [place] [address] [place] [address] Moderate late onset Alzheimer's dementia without behavioral disturbance, psychotic disturbance, mood disturbance, or anxiety (HCC)*; CEREBROVASCULAR DZ, POST-STROKE; Type 2 diabetes mellitus with hemoglobin A1c goal of less than 8.0% (HCC); BENIGN HYPERTENSION; Dyslipidemia, goal LDL below 100; Aortic valve sclerosis; RLS (restless legs syndrome); Senile osteoporosis; Vitamin B12 deficiency; Vitamin D deficiency Allergies No known active allergiesdocumented as of this encounter (statuses as of 10/10/2023) Medications Medication Sig Dispensed Refills Start Date [...] Tablet by mouth in the morning. Active metFORMIN HCl ER 500 MG Oral Tablet Extended Release 24 Hour (Glucophage XR) Take 1 Tablet by mouth in the morning. 10/03/2023 10/10/2023 Discontinued documented as of this encounter (statuses as of 10/10/2023) Active Problems Problem Noted Date Diagnosed Date [...] as of this encounter (statuses as of 10/10/2023) Resolved Problems Problem Noted Date Diagnosed Date Resolved Date Aortic stenosis 03/05/2012 02/10/2013 Hypokalemia 01/29/2012 10/03/2023 HTN, goal below 130/80 07/19/201001/28 HTN, goal below 140/90 02/19/200907/19 Overview: Modified per HTN Taxonomy. 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 documented as of this encounter (statuses as of 10/10/2023) Immunizations Name Administration Dates Next Due Pneumococcal [...] Progress Notes * Cally Mills MD - 10/10/2023 2:59 PM EDT ADMISSION HISTORY and PHYSICAL TRANSITION EVENT: Type: SNF admission Date: September 26 Code Status: No Code Name: Moon Allen Date of : 1935 This note pertains to care provided at [facility]. Please see facility medical record for original note. This note is not to be edited or addended in [employer]. Editing or addending needs to occur in the facilities medical record. S: Moon Allen had been admitted to [facility] from the [facility] [place] for salvage determiner care on 09/27/23. From On Service Note:"87 year old female, patient of RICHARD Forman is admitted to [facility] on 09/27/23 from [facility] [place] for custodial care Pt with history of worsening dementia, HTN, s/p CVA, HLD, DM, osteoporosis, RLS and Vitamin B12 deficiency has been a resident at [facility] since 2018. Pt has been stable and has been fairly independent with her ADLs but according to pt's daughter who was present during my assessment, over the past year, pt has been declining cognitively, wandering throughout the facility, becoming less involved in social activities and has been becoming more incontinent of bowels but mostly urine. Pt has not been having any pain issues. She continues to eat and drink adequately. She has exhibited some behaviors in the Assisted living faciilty but so far has been easily redirected. Because of her decline in cognition and urinary function and more difficulty to be adequately caredfor at Assisted living facility ,she is now admitted to [facility] on 09/27/23 for long termcare" Patient seen for admission. Sleeping in bed but arousable. Is not able to answer any questions. Denies any medical problems. Does not know her date. She does state she is in [place]. Her metformin was discontinued because her A1C was only 6.2. Past Medical History: Patient Active Problem List Diagnosis Calculus of [...] Vitamin B12 deficiency DNR (do not resuscitate) Current Outpatient Medications Medication Sig Dispense Refill METOPROLOL TARTRATE 25 MG PO TABS TAKE 1/2 TAB TWICE DAILY 90 Tab 1 SIMVASTATIN 40 MG PO TABS TAKE 1 TABLET ONCE A DAY AT BEDTIME 90 Tab 1 CLOPIDOGREL BISULFATE 75 MG PO TABS TAKE 1 TABLET EVERY DAY 90 Tab 1 Donepezil HCl 10 MG Oral Tablet (Aricept) Take 1 Tablet by mouth at bedtime. Take with largest mealof the day. Fish Oil 1000 MG Oral Capsule Take 2 Capsules by mouth in the morning. hydroCHLOROthiazide 25 MG Oral Tablet (Hydrodiuril) Take 1 Tablet by mouth in the morning. rOPINIRole HCl 0.5 MG Oral Tablet (Requip) Take 1 Tablet by mouth at bedtime. Vitamin D3 1000 UNIT Oral Capsule Take 1 Capsule by mouth daily. Acetaminophen 325 MG Oral Tablet (Tylenol) Take 2 Tablets by mouth every 4 hours as needed for Fever >38C(100.5F), Pain, Mild, Pain, Severe or Pain, Moderate. Vitamin B-12 500 MCG Oral Tablet (vitamin B-12) Take 1 Tablet by mouth in the morning. No current facility-administered medications for this visit. Review of patient's allergies indicates: No Known Allergies Social History Tobacco Use Smoking status: Never Smokeless tobacco: Never Substance Use Topics Alcohol use: No Vaping/E-Cigarette Use Vaping/E-Cigarette Substances Vaping/E-Cigarette Devices Past Surgical History: Procedure Laterality Date CT HEAD/BRAIN WO CONTRAST 11/16/08 nonspecific hypodensities on right, [facility] ECHO EXAM OF HEART (2D ECHO) 02/29/12 LVEF 60%, mild , Clfd EKG 02/29/12 NSR, [facility] FRAGMENT KIDNEY STONE BY SHOCK WAVE IOF MRI-BRAIN W/WO CONTRAST 02/29/12 normal, Clfd IOF US CAROTID DUPLEX BILAT 02/29/12 no significant stenosis, Cl MRA HEAD W WO CONTRAST 11/16/08 unremarkable, [facility] MRI BRAIN W WO CONTRAST 11/16/08 small acute infarct right parietal deep white matter, [facility] TOTAL ABD HYSTERECTOMY W/WO REMOVAL OF TUBE(S) age 44 no cancer, took both ovary VASC DUPLEX CAROTID BILAT 11/16/08 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, no significant ICA stenosis, [facility] Family History Problem Relation Name Age of Onset Stroke Father age 49 Heart attack Father Cancer Sister breast Cancer Grandmother (Maternal) colon Family Status Relation Status Mo Fa (Not Specified) Sis (Not Specified) Sis (Not Specified) MGMA (Not Specified) Results for orders placed or performed in visit on 10/05/23 LIPID PANEL WITH DIRECT LDL IF TG IS HIGH Result Value Ref Range Triglycerides 102 <=174 mg/dL Cholesterol 149 <200 mg/dL HDL Cholesterol 50 >49 mg/dL Non-HDL Cholesterol 99 <=159 mg/dL LDL Cholesterol 79 <=129 mg/dL ALT Result Value Ref Range ALT 8 (L) 10 - 35 U/L AST Result Value Ref Range AST 18 10 - 35 U/L 25-HYDROXY VITAMIN D Result Value Ref Range 25-Hydroxy Vitamin D 50 >19 ng/mL VITAMIN B12 Result Value Ref Range Vitamin B12 >2,000 (H) 232 - 1,245 pg/mL TSH WITH FREE T4 IF INDICATED Result Value Ref Range TSH 2.64 0.27 - 4.20 uIU/mL Hemoglobin AIC Results: Lab Results Component Value Date/Time HEMOGLOBIN A1C - [facility] 6.2 (H) 10/01/2023 05:48 AM HEMOGLOBIN A1C - [facility] 6.5 (H) 02/05/2020 07:29 AM Lipid Panel Results: [...] <=159 mg/dL LDL Cholesterol 79 <=129 mg/dL Basic Panel Results: Results for orders placed [...] mg/dL Calcium 9.8 8.4 - 10.2 mg/dL Review of Systems: Unable to obtain secondary to dementia ADL skills: dependent Ambulates with walker OBJECTIVE: PHYSICAL EXAM: I reviewed the most recent facilities vitals. Refer to vital signs flowsheet in care home chart.General: alert, no distress, well nourished, and well developed Head: Normocephalic, No masses, lesions, tenderness or abnormalities Eye Exam: PERRLA, extraocular movements intact, conjunctiva are pink and non- injected, sclera clear Ears: External ears normal Nose: no mucosal erythema, no mucosal edema, no purulent discharge Oropharynx: no exudate, no erythema, lips, buccal mucosa, and tongue normal, and mucous membranes are moist Neck: supple, no adenopathy, no bruits Heart: regular rate & rhythm, no murmur, and no gallops Lungs: chest symmetric with normal AP diameter, no chest deformities noted, no chest wall tenderness, lungs clear to auscultation Abdomen: abdomen soft, non-tender, normal bowel sounds, and no masses or organomegaly Extremities: no edema, no clubbing, no cyanosis Neuro Exam: alert, cooperative but confused ASSESSMENT: Moderate late onset Alzheimer's dementia without behavioral disturbance, psychotic disturbance, mood disturbance, or anxiety (HCC) (Primary)--progressive dementia and has declined and no longer able to be safely care for at assisted living. Continue LTC. Continue donepezil 10 mg daily. CEREBROVASCULAR DZ, POST-STROKE--continue Plavix 75 mg daily Type 2 diabetes mellitus with hemoglobin A1c goal of less than 8.0% ([facility])--A1C 6.2 and metformin discontinued. BENIGN HYPERTENSION--controlled with metoprolol tartrate 12.5 mg twice daily and HCTZ 25 mg daily Dyslipidemia, goal LDL below 100--controlled with simvastatin 40 mg daily Aortic valve sclerosis--stable RLS (restless legs syndrome)--continue ropinirole 0.5 mg at bedtime Senile osteoporosis--continue vitamin D supplement Vitamin B12 deficiency--continue 500 mcg daily supplement. Vitamin D deficiency--continue 1000 units daily supplement. PLAN: 1. Continue present medication(s): 2. Admission orders, medications, labs, hospital records and care plan reviewed. 3. Continue current treatment plan as ordered. 4. Care plan reviewed. 5. Advance Directives were discussed: The patient is a DNR 6. Residential Home Treatment Given: n/a Electronically signed by: Cally Mills MD I spent a total of 38 minutes coordinating, documenting, and providing care for [...] Scan 10/10/2014 10/10/2012, 10/01/2009 COVID-19 Vaccine ( - season) 2022 *BISPHONATE OR OTHER ACCEPTABLE MEDICATION NEEDED FOR OSTEOPOROSIS (REFER TO SMARTSET #1146) 10/06/2023 Influenza Vaccine (FLU shot) (Season Ended) 2023 02/10/2013, 01/29/2012, 01/17/2011, Additional history exists HbA1c 04/01/2024 10/01/2023, 02/05/2020 VITAMIN D LEVEL ONCE IN A LIFETIME-USE SMARTSET# [id number] Completed 10/05/2023, 04/07/2021, 02/05/2020, Additional history exists [...] disturbance, mood disturbance, or anxiety (HCC)- Primary CEREBROVASCULAR DZ, POST-STROKE Cerebral atherosclerosis Type 2 diabetes mellitus with hemoglobin A1c goal of less than 8.0% (HCC) BENIGN HYPERTENSION Unspecified essential hypertension Dyslipidemia, goal LDL below 100 Other and unspecified hyperlipidemia Aortic valve sclerosis Aortic valve disorders RLS (restless legs syndrome) Restless legs syndrome (RLS) Senile osteoporosis Vitamin B12 deficiency Other B-complex deficiencies Vitamin D deficiency Unspecified vitamin D deficiency documented in this encounter
--- OUTSIDE RECORDS SUMMARY | 2024-02-15 23:06 | External Medical Summary | Summary of Care ---
Author Name Unknown Organization [facility] Address [address] [place] [address] Phone [phone] Care Team Providers Care General Office Dispatcher Name Role Phone Unavailable Primary Care Provider Unavailabl e Encounter Details Date Type Department Care Team (Late st Contact Info) Description 11/13/2023 Abstract [facility] [address] [place] [address] Gilda Castaneda PA-C [address] [place] [address] Allergies No known active allergiesdocumented as of [...] and 2 Tablets before bedtime. 10/29/2023 Active Vitamin B-12 500 MCG Oral Tablet (vitamin B-12) Take 1 Tablet by mouth in the morning. 11/13/2023 Discontinued( Medication/Do se Changed) documented as of this encounter (statuses as [...] CASE MANAGEMENT 11/26/200801/31 Overview: Janina Arizmendi, RN [phone] Cerebrovascular accident (CV A) due to thrombosis [...] D LEVEL ONCE IN A LIFETIME-USE SMARTSET# [id number] Completed 10/05/2023, 04/07/2021, 02/05/2020, Additional history exists [...]
--- OUTSIDE RECORDS SUMMARY | 2024-02-15 23:06 | External Medical Summary | Continuity Of Care Document ---
Author Name Unknown Address [address] [place] [address] Organization [facility]) Care Team Providers Care Sales Clerk Supervisor Name Role Phone Cally Mills Primary Care Provider [phone] Problems Code Description Start Date End Date [...] weight Temperature SpO2 Blood Sugar Pulse Respirations 86348 711 36929 4 115.00 NI 22042 711 75505 1 115.00 NI 68732 718 37774 4 113.00 NI 55955 806 69514 1 Immunizations Vaccine Date Status COVID-19 05/23/2020 Completed COVID-19 06/13/2020 Completed COVID-19 02/09/2021 Completed COVID-19 09/29/2021 Completed COVID-19 01/26/2022 Completed Influenza 01/28/2018 Completed Influenza 01/27/2019 Completed Influenza 01/21/2020 Completed Influenza 01/27/2021 Completed Influenza 02/08/2022 Completed Influenza 01/26/2023 Completed (PCV20)Pneumococcal 11/05/2023 Completed
--- OUTSIDE RECORDS SUMMARY | 2024-02-15 23:06 | External Medical Summary | Summary of Care ---
Author Name Unknown Organization [facility] Address [address] [place] [address] Phone [phone] Care Team Providers Care Manager Small Business Name Role Phone Unavailable Primary Care Provider Unavailabl e Reason for Visit * Reason Onset Date Comments Care Home Visit - Admission 10/10/2023 Encounter Details Date Type Department Care Team (Latest Contact Info) Description 10/10/2023 11:00 AM EDT Care Home Visit [address] [place] [address] Cally Mills MD [address] [place] [address] [place] [address] Moderate late onset Alzheimer's dementia without behavioral [...] CASE MANAGEMENT 11/26/200801/31 Overview: Janina Arizmendi RN [phone] Cerebrovascular accident (CV A) due to thrombosis [...] This note pertains to care provided at [facility]. Please see facility medical record for original note. This note is not to be edited or addended in [employer]. Editing or addending needs to occur in the facilities medical record. S: Moon Allen had been admitted to [facility] from the [facility] for superintendent terminal care on 09/27/23. From On Service Note:"87 year old female, patient of RICHARD Forman is admitted to [facility] on 09/27/23 from [facility] for snf care Pt with history of worsening dementia, HTN, s/p CVA, HLD, DM, osteoporosis, RLS and Vitamin B12 deficiency has been a resident at [facility] since 2018. Pt has been stable and [...] living facility ,she is now admitted to [facility] on 09/27/23 for long termcare" Patient seen for admission. Sleeping in bed but arousable. Is not able to answer any questions. Denies any medical problems. Does not know her date. She does state she is in [place]. Her metformin was discontinued because her A1C [...] WO CONTRAST 11/16/08 nonspecific hypodensities on right, [facility] ECHO EXAM OF HEART (2D ECHO) 02/29/12 LVEF 60%, mild , Clfd EKG 02/29/12 NSR, [facility] FRAGMENT KIDNEY STONE BY SHOCK WAVE IOF MRI-BRAIN W/WO CONTRAST 02/29/12 normal, Clfd IOF US CAROTID DUPLEX BILAT 02/29/12 no significant stenosis, Cl MRA HEAD W WO CONTRAST 11/16/08 unremarkable, [facility] MRI BRAIN W WO CONTRAST 11/16/08 small acute infarct right parietal deep white matter, [facility] TOTAL ABD HYSTERECTOMY W/WO REMOVAL OF TUBE(S) age 44 no cancer, took both ovary VASC DUPLEX CAROTID BILAT 11/16/08 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 Refer to vital signs flowsheet in longterm chart.General: alert, no distress, well nourished, and [...] hemoglobin A1c goal of less than 8.0% ([facility])--A1C 6.2 and metformin discontinued. BENIGN HYPERTENSION--controlled with [...] discussed: The patient is a DNR 6. Intermediate Home Treatment Given: n/a Electronically signed by: [...] D LEVEL ONCE IN A LIFETIME-USE SMARTSET# [id number] Completed 10/05/2023, 04/07/2021, 02/05/2020, Additional history exists [...]
--- OUTSIDE RECORDS SUMMARY | 2024-02-15 23:06 | External Medical Summary | Summary of Care ---
Author Name Unknown Organization [facility] Address [address] [facility] [place] [address] Phone [phone] Care Team Providers Care Telehealth Nurse Name Role Phone Unavailable Primary Care Provider Unavailabl e Encounter Details Date Type Department Care Team (Late st Contact Info) Description 11/16/2023 Orders Only Lab Mobile Phlebotomy [facility] [address] [employer] [place] [address] Cally Mills MD [address] [place] [address] [place] [id number] Other vitamin B12 deficiency anemia*; Vitamin B12 deficiency anemia, unspecified Allergies No known active allergiesdocumented as of this encounter (statuses as of 11/16/2023) Medications Medication Sig Dispensed Refills Start Date [...] as of this encounter (statuses as of 11/16/2023) Active Problems Problem Noted Date Diagnosed Date [...] as of this encounter (statuses as of 11/16/2023) Resolved Problems Problem Noted Date Diagnosed Date Resolved Date Aortic stenosis 03/05/2012 02/10/2013 Hypokalemia 01/29/2012 10/03/2023 HTN, goal below 130/80 07/19/201001/28 HTN, goal below 140/90 02/19/200907/19 Overview: Modified per HTN Taxonomy. 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 documented as of this encounter (statuses as of 11/16/2023) Immunizations Name Administration Dates Next Due Pneumococcal [...] Care Team (Late st Contact Info) Description 11/16/2023 5:10 AM EDT Laboratory Lab Mobile Phlebotomy [facility] [address] [place] [address] [place] [address] Arrived Scheduled Orders Name Type Priority Associated Diagnoses Orde r Schedule VITAMIN B12 Lab Routine Other vitamin B12 deficiency anemia Vitamin B12 deficiency anemia, unspecified Expected: 11/16/2023, Expires: 11/15/2024 Health Maintenance Due Date Last Done Comments [...] D LEVEL ONCE IN A LIFETIME-USE SMARTSET# [id number] Completed 10/05/2023, 04/07/2021, 02/05/2020, Additional history exists [...] as of this encounter Visit Diagnoses Diagnosis Other vitamin B12 deficiency anemia- Primary documented in this encounter
--- OUTSIDE RECORDS SUMMARY | 2024-02-15 23:06 | External Medical Summary ---
Author Name Unknown Address Unknown Organization K01:[facility]ORY [facility] - [address] [place] [address] Laboratory Report Ordering Provider Test Date Status YAKELIN MCNAMARA 10/05/2023 06:00:00 Final Observation Date Value Abnormality Reference (Units ) Status TSH 10/05/2023 06:00:00 2.64 0.27-4.20 (uIU/mL) Final Performing Location LABORATORY C - [address] [place] [address]
--- OUTSIDE RECORDS SUMMARY | 2024-02-15 23:06 | External Medical Summary | Summary of Care ---
Author Name Unknown Organization [facility] Address [address] [place] [address] Phone [phone] Care Team Providers Care Printing Worker Supervisor Name Role Phone Unavailable Primary Care Provider Unavailabl e Reason for Visit * Reason Comments Longterm - Regulatory Encounter Details Date Type Department Care Team (Latest Contact Info) Description 11/05/2023 9:00 AM EDT Longterm Visit [facility] [address] [place] [address] Abdelrahman Hood PA-C [address] [place] [address] Moderate Alzheimer's dementia of other onset with other behavioral disturbance (HCC)*; Type 2 diabetes mellitus with hemoglobin A1c goal of less than 8.0% (HCC); CEREBROVASCULAR DZ, POST-STROKE; Dyslipidemia, goal LDL below 100; Vitamin D deficiency; Vitamin B12 deficiency Allergies No known active allergiesdocumented as of this encounter (statuses as of 11/06/2023) Medications Medication Sig Dispensed Refills Start Date [...] as of this encounter (statuses as of 11/06/2023) Active Problems Problem Noted Date Diagnosed Date [...] as of this encounter (statuses as of 11/06/2023) Resolved Problems Problem Noted Date Diagnosed Date Resolved Date Aortic stenosis 03/05/2012 02/10/2013 Hypokalemia 01/29/2012 10/03/2023 HTN, goal below 130/80 07/19/201001/28 HTN, goal below 140/90 02/19/200907/19 Overview: Modified per HTN Taxonomy. 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 documented as of this encounter (statuses as of 11/06/2023) Immunizations Name Administration Dates Next Due Pneumococcal [...] on file documented as of this encounter Miscellaneous Notes * Addendum Note - Abdelrahman Hood PA-C - 11/06/2023 9:09 AM EDTAddended by: ABDELRAHMAN HOOD on: 11/06/2023 09:09 AM Modules accepted: Level of Service documented in this encounter Plan of Treatment Health Maintenance Due Date Last Done Comments Albumin/Creatinine Ratio 1953 Diabetic Eye Exam 1953 Diabetic Foot Exam 1953 Zoster Vaccines (1 of 2) 1984 DTaP,Tdap,and Td Vaccines (1 - Tdap) 09/17/2007 09/16/2007 Pneumococcal Vaccine: 65+ Years (2 of 2 - PCV) 07/20/2011 07/19/2010 Depression Screening 02/10/2014 02/10/2013 DXA Scan 10/10/2014 10/10/2012, 10/01/2009 COVID-19 Vaccine ( - 24 season) 2022 *BISPHONATE OR OTHER ACCEPTABLE MEDICATION NEEDED FOR OSTEOPOROSIS (REFER TO SMARTSET #1146) 10/06/2023 Influenza Vaccine (FLU shot) (#1) 2023 02/10/2013, 01/29/2012, 01/17/2011, Additional history exists HbA1c 04/01/2024 10/01/2023, 02/05/2020 VITAMIN D LEVEL ONCE IN A LIFETIME-USE SMARTSET# [id number] Completed 10/05/2023, 04/07/2021, 02/05/2020, Additional history exists [...] of this encounter Visit Diagnoses Diagnosis 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
--- OUTSIDE RECORDS SUMMARY | 2024-02-15 23:06 | External Medical Summary | Summary of Care ---
Author Name Unknown Organization [facility] Address [address] [place] [address] Phone [phone] Care Team Providers Care Broadcast Correspondent Name Role Phone Unavailable Primary Care Provider Unavailabl e Reason for Visit * Reason Onset Date Comments Long Term Visit 10/09/2023 Encounter Details Date Type Department Care Team (Latest Contact Info) Description 10/09/2023 7:00 AM EDT Long Term Visit [facility] [address] [place] [address] Gilda Castaneda PA-C [address] [place] [address] Personal history of fall*; RLS (restless legs syndrome); Moderate late onset Alzheimer's dementia without behavioral disturbance, psychotic disturbance, mood disturbance, or anxiety (HCC); Vitamin B12 deficiency; Type 2 diabetes mellitus with hemoglobin A1c goal of less than 8.0% (HCC) Allergies No known active allergiesdocumented as of this encounter (statuses as of 10/09/2023) Medications Medication Sig Dispensed Refills Start Date [...] by mouth in the morning. 10/03/2023 Active metFORMIN HCl ER 500 MG Oral [...] as of this encounter (statuses as of 10/09/2023) Active Problems Problem Noted Date Diagnosed Date [...] as of this encounter (statuses as of 10/09/2023) Resolved Problems Problem Noted Date Diagnosed Date Resolved Date Aortic stenosis 03/05/2012 02/10/2013 Hypokalemia 01/29/2012 10/03/2023 HTN, goal below 130/80 07/19/201001/28 HTN, goal below 140/90 02/19/200907/19 Overview: Modified per HTN Taxonomy. 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 documented as of this encounter (statuses as of 10/09/2023) Immunizations Name Administration Dates Next Due Pneumococcal [...] Contact Info) Description 10/10/2023 11:00 AM EDT Long Term Visit [facility], [address] [place] [address] Cally Mills MD [address] [place] [address] [place] [address] Health Maintenance Due Date Last Done Comments [...] D LEVEL ONCE IN A LIFETIME-USE SMARTSET# [id number] Completed 10/05/2023, 04/07/2021, 02/05/2020, Additional history exists [...] as of this encounter Visit Diagnoses Diagnosis Personal history of fall- Primary RLS (restless legs syndrome) Restless legs syndrome (RLS) Moderate late onset Alzheimer's dementia without behavioral disturbance, psychotic disturbance, mood disturbance, or anxiety (HCC) Vitamin B12 deficiency Other B-complex deficiencies Type 2 diabetes mellitus with hemoglobin A1c goal of less than 8.0% (HCC) documented in this encounter
--- OUTSIDE RECORDS SUMMARY | 2024-02-15 23:06 | External Medical Summary | Summary of Care ---
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 behavioral disturbance (HCC)*; Type 2 diabetes mellitus with hemoglobin A1c goal of less than 8.0% (HCC); CEREBROVASCULAR DZ, POST-STROKE Allergies No known active allergiesdocumented as of this encounter (statuses as of 11/05/2023) Medications Medication Sig Dispensed Refills Start Date [...] as of this encounter (statuses as of 11/05/2023) Active Problems Problem Noted Date Diagnosed Date [...] as of this encounter (statuses as of 11/05/2023) Resolved Problems Problem Noted Date Diagnosed Date Resolved Date Aortic stenosis 03/05/2012 02/10/2013 Hypokalemia 01/29/2012 10/03/2023 HTN, goal below 130/80 07/19/201001/28 HTN, goal below 140/90 02/19/200907/19 Overview: Modified per HTN Taxonomy. 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 documented as of this encounter (statuses as of 11/05/2023) Immunizations Name Administration Dates Next Due Pneumococcal [...] D LEVEL ONCE IN A LIFETIME-USE SMARTSET# [id number] Completed 10/05/2023, 04/07/2021, 02/05/2020, Additional history exists [...]
--- OUTSIDE RECORDS SUMMARY | 2024-02-15 23:06 | External Medical Summary | Summary of Care ---
Author Name Unknown Organization [facility] Address [address] [facility] [place] [address] Phone [phone] Care Team Providers Care Container Packer Operator Name Role Phone Unavailable Primary Care Provider Unavailabl e Encounter Details Date Type Department Care Team (Late st Contact Info) Description 11/12/2023 Orders Only Lab Mobile Phlebotomy [facility] [address] [facility] [employer] [place] [address] Cally Mills MD [address] [place] [address] [place] [address] Other vitamin B12 deficiency anemia*; Vitamin B12 deficiency anemia, unspecified Allergies No known active allergiesdocumented as of this encounter (statuses as of 11/12/2023) Medications Medication Sig Dispensed Refills Start Date [...] as of this encounter (statuses as of 11/12/2023) Active Problems Problem Noted Date Diagnosed Date [...] as of this encounter (statuses as of 11/12/2023) Resolved Problems Problem Noted Date Diagnosed Date Resolved Date Aortic stenosis 03/05/2012 02/10/2013 Hypokalemia 01/29/2012 10/03/2023 HTN, goal below 130/80 07/19/201001/28 HTN, goal below 140/90 02/19/200907/19 Overview: Modified per HTN Taxonomy. 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 documented as of this encounter (statuses as of 11/12/2023) Immunizations Name Administration Dates Next Due Pneumococcal [...] Care Team (Late st Contact Info) Description 11/12/2023 5:00 AM EDT Laboratory Lab Mobile Phlebotomy [facility] [address] [facility] [place], [place] [id number] [address] [place] [address] Arrived Scheduled Orders Name Type Priority Associated Diagnoses Orde r Schedule VITAMIN B12 Lab Routine Other vitamin B12 deficiency anemia Vitamin B12 deficiency anemia, unspecified Expected: 11/12/2023, Expires: 11/11/2024 Health Maintenance Due Date Last Done Comments [...] D LEVEL ONCE IN A LIFETIME-USE SMARTSET# [id number] Completed 10/05/2023, 04/07/2021, 02/05/2020, Additional history exists [...]
--- OUTSIDE RECORDS SUMMARY | 2024-02-15 23:07 | External Medical Summary | Summary of Care ---
Author Name Unknown Organization [facility] Address [address] [place] [address] Phone [phone] Care Team Providers Care Bottom Turner Name Role Phone Unavailable Primary Care Provider Unavailabl e Reason for Visit * Reason Onset Date Comments Mcfp Visit 10/03/2023 Encounter Details Date Type Department Care Team (Latest Contact Info) Description 10/03/2023 9:30 AM EDT Mcfp Visit [facility] [address] [place] [address] Gilda Castaneda PA-C [address] [place] [address] Moderate late onset Alzheimer's dementia without behavioral disturbance, psychotic disturbance, mood disturbance, or anxiety (HCC)*; Type 2 diabetes mellitus with hemoglobin A1c goal of less than 8.0% (HCC); CEREBROVASCULAR DZ, POST-STROKE; BENIGN HYPERTENSION Allergies No known active allergiesdocumented as of this encounter (statuses as of 10/03/2023) Medications Medication Sig Dispensed Refills Start Date End Date Status METOPROLOL TARTRATE 25 MG PO TABSIndications: Cerebrovascular disease, arteriosclerotic , post-stroke TAKE 1/2 TAB TWICE DAILY 90 Tab 1 02/10/2013 Active SIMVASTATIN 40 MG PO TABSIndications: Dyslipidemia, goal LDL below 100 TAKE 1 TABLET ONCE A DAY AT BEDTIME 90 Tab 1 08/03/2013 Active CLOPIDOGREL BISULFATE 75 MG PO TABSIndications: Cerebrovascular disease, arteriosclerotic , post-stroke TAKE 1 TABLET EVERY DAY 90 Tab 1 08/03/2013 Active Donepezil HCl 10 MG Oral Tablet (Aricept) Take 1 Tablet by mouth at bedtime. Take with largest meal of the day. 10/03/2023 Active Fish Oil 1000 MG Oral Capsule Take 2 Capsules by mouth in the morning. 10/03/2023 Active hydroCHLOROthiaz tsering 25 MG Oral Tablet (Hydrodiuril) Take 1 Tablet by mouth in the morning. 10/03/2023 Active metFORMIN HCl ER 500 MG Oral Tablet Extended Release 24 Hour (Glucophage XR) Take 1 Tablet by mouth in the morning. 10/03/2023 Active rOPINIRole HCl 0.5 MG Oral Tablet (Requip) Take 1 Tablet by mouth at bedtime. 10/03/2023 Active Vitamin B-12 1000 MCG Oral Tablet (Cyanocobalamin) Take 1 Tablet by mouth in the morning. 10/03/2023 Active Vitamin D3 1000 UNIT Oral Capsule Take 1 Capsule by mouth daily. 10/03/2023 Active Acetaminophen 325 MG Oral Tablet (Tylenol) Take 2 Tablets by mouth every 4 hours as needed for Fever >38C(100.5F), Pain, Mild, Pain, Severe or Pain, Moderate. 10/03/2023 Active NITROGLYCERIN 0.4 MG SL SUBL as directed 4 Discontinued(Medi cation List Clean Up) ASPIRIN 325 MG PO TABS 1 tablet 4 Discontinued(Medi cation List Clean Up) FISH OIL 1000 MG PO CAPS 1 tablet twice daily 4 Discontinued VITAMIN D 400 UNITS PO TABS one a day 4 Discontinued(Medi cation/Dose Changed) KLOR-CON 20 MEQ PO PACK 2 tabs in the AM and 2 tabs in the PM by mouth 4 Discontinued(Medi cation List Clean Up) KLOR-CON M20 20 MEQ PO TBCRIndications: Hypokalemia 2 TABLETS TWICE DAILY WITH FOOD 120 Tab 5 04/29/2013 4 Discontinued(Medi cation List Clean Up) HYDROCHLOROTHIAZ TSERING 50 MG PO TABSIndications: Calculus of kidney TAKE 1 TABLET EVERY MORNING 90 Tab 1 08/03/2013 4 Discontinued(Medi cation/Dose Changed) donepezil (ARICEPT) 5 MG Tablet Take 1 Tab by mouth every evening. 5 07/20/2014 4 Discontinued(Medi cation/Dose Changed) gabapentin (NEURONTIN) 100 MG Capsule 3 06/19/2015 4 Discontinued(Medi cation List Clean Up) documented as of this encounter (statuses as of 10/03/2023) Active Problems Problem Noted Date Diagnosed Date Type 2 diabetes mellitus wit h hemoglobin [...] as of this encounter (statuses as of 10/03/2023) Resolved Problems Problem Noted Date Diagnosed Date Resolved Date Aortic stenosis 03/05/2012 02/10/2013 Hypokalemia 01/29/2012 10/03/2023 HTN, goal below 130/80 07/19/201001/28 HTN, goal below 140/90 02/19/200907/19 Overview: Modified per HTN Taxonomy. 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 documented as of this encounter (statuses as of 10/03/2023) Immunizations Name Administration Dates Next Due Pneumococcal [...] Health Maintenance Due Date Last Done Comments Zoster Vaccines (1 of 2) 1985 DTaP,Tdap,and Td Vaccines (1 - Tdap) 09/17/2007 09/16/2007 Pneumococcal Vaccine: 65+ Years (2 of 2 - PCV) 07/20/2011 07/19/2010 Depression Screening 02/10/2014 02/10/2013 *LDL AFTER STARTING A STATIN 08/28/2017 DXA Scan 10/11/2019 10/10/2012, 10/01/2009 COVID-19 Vaccine ( - 2022- season) 2022 Influenza Vaccine (FLU shot) (Season Ended) 2023 02/10/2013, 01/29/2012, 01/17/2011, Additional history exists GARDASIL-HPV IMMUNIZATION SERIES Aged [...] disturbance, mood disturbance, or anxiety (HCC)- Primary Type 2 diabetes mellitus with hemoglobin A1c goal of less than 8.0% ([facility]) CEREBROVASCULAR DZ, POST-STROKE Cerebral atherosclerosis BENIGN HYPERTENSION Unspecified essential hypertension documented in this encounter
--- OUTSIDE RECORDS SUMMARY | 2024-02-15 23:07 | External Medical Summary | Continuity Of Care Document ---
Author Name Unknown Address [address] [place] [address] Organization [facility] ( ) Care Team Providers Care Lightning Rod Installer Name Role Phone Cally Mills Primary Care Provider [phone] Problems Code Description Start Date End Date Status . Active VITAL SIGNS Date Time Diastolic blood pressure Systolic blood pressure Body height Body weight Temperature SpO2 Blood Sugar Pulse Respirations 99794 515 77462 5 53.00 mm[Hg] - Sitting 126.00 mm[Hg] - Sitting 72.00/ min 40127 516 40287 3 72.00 mm[Hg] - Sitting 120.00 mm[Hg] - Sitting 65.00/ min 00010 517 73130 5 56.00 mm[Hg] - Sitting 126.00 mm[Hg] - Sitting 73.00/ min 98505 520 97152 2 68.00 mm[Hg] - Sitting 120.00 mm[Hg] - Sitting 17588 520 12884 5 68.00 mm[Hg] - Sitting 120.00 mm[Hg] - Sitting 86055 521 42403 6 57.00 mm[Hg] - Sitting 112.00 mm[Hg] - Sitting 70.00/ min 42664 522 82507 7 59.00 mm[Hg] - Sitting 121.00 mm[Hg] - Sitting 71.00/ min 11569 523 43546 4 65.00 mm[Hg] - Lying Down 122.00 mm[Hg] - Lying Down 78.00/ min 26381 524 50577 5 52.00 mm[Hg] - Sitting 116.00 mm[Hg] - Sitting 73.00/ min 13159 525 78409 5 68.00 mm[Hg] - Sitting 118.00 mm[Hg] - Sitting 01319 526 62946 7 66.00 mm[Hg] - Sitting 120.00 mm[Hg] - Sitting 90184 527 87401 9 58.00 mm[Hg] - Sitting 104.00 mm[Hg] - Sitting 76.00/ min 65756 528 08679 9 63.00 mm[Hg] - Sitting 129.00 mm[Hg] - Sitting 73.00/ min 61135 529 30925 2 66.00 mm[Hg] - Sitting 118.00 mm[Hg] - Sitting 84.00/ min 91270 530 30834 2 68.00 mm[Hg] - Sitting 122.00 mm[Hg] - Sitting 33447 531 10663 8 72.00 mm[Hg] - Sitting 126.00 mm[Hg] - Sitting 62.00/ min 42141 601 46165 2 59.00 mm[Hg] - Sitting 109.00 mm[Hg] - Sitting 120.00 NI 97.50 Oral 76.00/ min 22.00/min 88204 601 06032 3 66.00 mm[Hg] - Sitting 116.00 mm[Hg] - Sitting 16180 602 14047 2 64.00 mm[Hg] - Sitting 118.00 mm[Hg] - Sitting 63598 603 27921 6 50.00 mm[Hg] - Sitting 111.00 mm[Hg] - Sitting 67.00/ min 96058 604 23182 8 61.00 mm[Hg] - Sitting 132.00 mm[Hg] - Sitting 73.00/ min 24290 605 33491 9 70.00 mm[Hg] - Sitting 119.00 mm[Hg] - Sitting 73.00/ min 16374 606 64556 5 71.00 mm[Hg] - Sitting 126.00 mm[Hg] - Sitting 70.00/ min 75081 607 28722 2 55.00 mm[Hg] - Sitting 98.00 mm[Hg] - Sitting 80.00/ min 99096 608 16699 2 66.00 mm[Hg] - Sitting 120.00 mm[Hg] - Sitting 91004 609 87317 1 72.00 mm[Hg] - Sitting 126.00 mm[Hg] - Sitting 15675 610 20272 6 55.00 mm[Hg] - Sitting 120.00 mm[Hg] - Sitting 73.00/ min 37996 611 94503 1 60.00 mm[Hg] - Sitting 89.00 mm[Hg] - Sitting 61.00/ min 64277 612 44833 6 70.00 mm[Hg] - Sitting 116.00 mm[Hg] - Sitting 71.00/ min 02118 613 00156 0 122.00 NI 98.20 Oral 98.00 % 71.00/ min 18.00/min 40552 613 26810 0 59 NI 65656 613 87357 8 59 NI 43063 613 06801 5 98.20 Oral 77453 613 48410 0 70.00 mm[Hg] - Sitting 116.00 mm[Hg] - Sitting 71.00/ min 18.00/min 85180 614 50115 1 Immunizations Vaccine Date Status COVID-19 05/23/2020 Completed COVID-19 06/13/2020 Completed COVID-19 02/09/2021 Completed COVID-19 09/29/2021 Completed COVID-19 01/26/2022 Completed Influenza 01/28/2018 Completed Influenza 01/27/2019 Completed Influenza 01/21/2020 Completed Influenza 01/27/2021 Completed Influenza 02/08/2022 Completed Influenza 01/26/2023 Completed
--- OUTSIDE RECORDS SUMMARY | 2024-02-15 23:07 | External Medical Summary ---
Author Name Unknown Address Unknown Organization [id number]:[facility] - [address] [place] [address] Laboratory Report Ordering Provider Test Date Status YAKELIN MCNAMARA 10/05/2023 06:00:00 Final Observation Date Value Abnormality Reference (Units ) Status Vitamin B12 10/05/2023 06:00:00 >2000 Above high normal 232-1245 (pg/mL) Final Performing Location LABORATORY [facility] - [address] [place] [address]
--- OUTSIDE RECORDS SUMMARY | 2024-02-15 23:07 | External Medical Summary ---
Author Name Unknown Address Unknown Organization [id number][facility] [address] [place] [address] Laboratory Report Ordering Provider Test Date Status YAKELIN MCNAMARA 10/01/2023 05:48:00 Final Observation Date Value Abnormality Reference (Units ) Status WBC, Total 10/01/2023 05:48:00 4.92 4.00-10.8 0 (K/uL) Final RBC 10/01/2023 05:48:00 4.29 3.85-5.15 (M/uL) Final Hemoglobin 10/01/2023 05:48:00 12.4 12.0-15.3 (g/dL) Final HCT 10/01/2023 05:48:00 37.7 36.0-45.2 (%) Final MCV 10/01/2023 05:48:00 87.9 81.5-97.5 (fL) Final MCH 10/01/2023 05:48:00 28.9 27.0-34.0 (pg) Final MCHC 10/01/2023 05:48:00 32.9 32.0-36.0 (g/dL) Final RDW 10/01/2023 05:48:00 13.2 11.5-15.5 (%) Final Platelets 10/01/2023 05:48:00 190 140-400 (K /uL) Final MPV 10/01/2023 05:48:00 11.3 6.6-11.1 ( fL) Final Performing Location [facility] [address] [place] [address]
--- OUTSIDE RECORDS SUMMARY | 2024-02-15 23:07 | External Medical Summary | Summary of Care ---
Author Name Unknown Organization [facility] Address [address] [facility] [place] [address] Phone [phone] Care Team Providers Care Microsoft Bi Architect Name Role Phone Tello Matthew MD Primary Care Provider [phone] Encounter Details Date Type Department Care Team (Late st Contact Info) Description 09/30/2023 Orders Only Lab Mobile Phlebotomy [facility] [address] [employer] [place] [address] Cally Mills MD [address] [place] [address] [place] [address] HTN, goal below 140/90*; DM (diabetes mellitus) (HCC) Allergies No known active allergiesdocumented as of this encounter (statuses as of 09/30/2023) Medications Medication Sig Dispensed Refills Start Date End Date Status NITROGLYCERIN 0.4 MG SL SUBL as directed Active ASPIRIN 325 MG PO TABS 1 tablet Active FISH OIL 1000 MG PO CAPS 1 tablet twice daily Active VITAMIN D 400 UNITS PO TABS one a day Active KLOR-CON 20 MEQ PO PACK 2 tabs in the AM and 2 tabs in the PM by mouth Active METOPROLOL TARTRATE 25 MG PO TABSIndications:Cereb rovascular disease, arteriosclerotic, post-stroke TAKE 1/2 TAB TWICE DAILY 90 Tab 1 02/10/2013 Active KLOR-CON M20 20 MEQ PO TBCRIndications:Hypok alemia 2 TABLETS TWICE DAILY WITH FOOD 120 Tab 5 04/29/2013 Active SIMVASTATIN 40 MG PO TABSIndications:Dysli pidemia, goal LDL below 100 TAKE 1 TABLET ONCE A DAY AT BEDTIME 90 Tab 1 08/03/2013 Active CLOPIDOGREL BISULFATE 75 MG PO TABSIndications:Cereb rovascular disease, arteriosclerotic, post-stroke TAKE 1 TABLET EVERY DAY 90 Tab 1 08/03/2013 Active HYDROCHLOROTHIAZIDE 50 MG PO TABSIndications:Calcu kajal of kidney TAKE 1 TABLET EVERY MORNING 90 Tab 1 08/03/2013 Active donepezil (ARICEPT) 5 MG Tablet Take 1 Tab by mouth every evening. 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 ADVANCE DIRECTIVE INFORMATION 11/26/2008 Overview: No, Advance Directive brochure given to patient. Stroke, acute, within 8 weeks 11/26/2008 Overview: Right parietal CVA 11/17/08 Calculus of kidney documented as of this encounter (statuses as of 09/30/2023) Resolved Problems Problem Noted Date Diagnosed Date Resolved Date Aortic stenosis 03/05/2012 02/10/2013 HTN, goal below 130/80 07/19/201001/28 HTN, goal below 140/90 02/19/200907/19 Overview: Modified per HTN Taxonomy. ACTIVE CASE MANAGEMENT 11/26/200801/31 Overview: Janina Arizmendi RN [phone] Dyslipidemia, goal to be determined 09/13/2006 07/19/2010 BENIGN HYPERTENSION 02/20/2006 02/20/20 09 Overview: Modified per HTN Taxonomy. Cerebrovascular event, ill-d efined, within last 8 weeks 04/06/2009 Overview: Modified by CVA Protocol #8. documented as of this encounter (statuses as of 09/30/2023) Immunizations Name Administration Dates Next Due Pneumococcal [...] Care Team (Late st Contact Info) Description 10/01/2023 5:30 AM EDT Laboratory Lab Mobile Phlebotomy [facility] [address] [facility] [place] [address] [place] [address] Scheduled Orders Name Type Priority Associated Diagnoses Orde r Schedule CBC Lab Routine HTN, goal below 140/90 DM (diabetes mellitus) (HCC) Expected: 10/01/2023, Expires: 09/29/2024 BASIC METABOLIC PANEL Lab Routine HTN, goal below 140/90 DM (diabetes mellitus) (HCC) Expected: 10/01/2023, Expires: 09/29/2024 HEMOGLOBIN A1C Lab Routine HTN, goal below 140/90 DM (diabetes mellitus) (HCC) Expected: 10/01/2023, Expires: 09/29/2024 Health Maintenance Due Date Last Done Comments Zoster Vaccines (1 of 2) 1985 DTaP,Tdap,and Td Vaccines (1 - Tdap) 09/17/2007 09/16/2007 Pneumococcal Vaccine: 65+ Years (2 of 2 - PCV) 07/20/2011 07/19/2010 Depression Screening 02/10/2014 02/10/2013 *LDL AFTER STARTING A STATIN 08/28/2017 DXA Scan 10/11/2019 10/10/2012, 10/01/2009 COVID-19 Vaccine ( season) 2022 Influenza Vaccine (FLU shot) (Season [...] as of this encounter Visit Diagnoses Diagnosis HTN, goal below 140/90- Primary Unspecified essential hypertension DM (diabetes mellitus) (HCC) Type II or unspecified type diabetes mellitus without mention of complication, not stated as uncontrolled documented in this encounter Care Teams Microsoft Bi Architect Relationship Specialty Start Date End Date Tello Matthew MD PCP - General Internal Medicine 09/04/13 documented as of this encounter
--- OUTSIDE RECORDS SUMMARY | 2024-02-15 23:07 | External Medical Summary ---
Author Name Unknown Address Unknown Organization [id number]:LAB[facility]ATORY [facility] - [address] [facility] [address] Laboratory Report Ordering Provider Test Date Status YAKELIN MCNAMARA 10/05/2023 06:00:00 Final Observation Date Value Abnormality Reference (Units ) Status Triglyceride 10/05/2023 06:00:00 102 <=174 ( mg/dL) Final Triglyceride Reference Range s (mg/dL):
<150 Acceptable
150-174 Borderline high
175-499 High
>=500 Very high Cholesterol 10/05/2023 06:00:00 149 <200 (mg /dL) Final Total Cholesterol Reference Ranges (mg/dL):
<200 Desirable
200-239 Borderline high
>=240 High HDL 10/05/2023 06:00:00 50 >49 (mg/dL ) Final HDL Cholesterol Reference Ra nges (mg/dL):
>=60 High (Desirable)
<50 Low (Undesirable) For Females
<40 Low (Undesirable) For Males NON-HDL CHOLESTEROL 10/05/2023 06:00:00 99 <=159 (mg/dL) Final Non-HDL Cholesterol Referenc e Range (mg/dL):
<100 Target level for high risk ASCVD patient
<130 Optimal for general population
130-159 Near optimal for general population
160-189 Borderline High
190-219 High
>=220 Very High LDL, (calculated) 10/05/2023 06:00:00 79 <= 129 (mg/dL) Final LDL Cholesterol Reference Ra nges (mg/dL):
<70 Target level for high risk ASCVD patient
<100 Optimal for general population
100-129 Near optimal for general population
130-159 Borderline high
160-189 High
>=190 Very high Performing Location LABORATORY [facility] - [address] [facility] [address]
--- OUTSIDE RECORDS SUMMARY | 2024-02-15 23:07 | External Medical Summary | Continuity Of Care Document ---
Author Name Unknown Address [address] [place] [address] Organization [facility] ( ) Care Team Providers Care Sign Poster Name Role Phone Ceasar Vasquez Primary Care Provider [phone] VITAL SIGNS Date Time Diastolic blood pressure Systolic blood pressure Body height Body weight Temperature SpO2 Blood Sugar Pulse Respirations 33222 514 37940 9 70.00 mm[Hg] - Sitting 124.00 mm[Hg] - Sitting 71.00/ min 04074 515 57405 5 53.00 mm[Hg] - Sitting 126.00 mm[Hg] - Sitting 72.00/ min 82480 516 29636 3 72.00 mm[Hg] - Sitting 120.00 mm[Hg] - Sitting 65.00/ min 96326 517 35609 5 56.00 mm[Hg] - Sitting 126.00 mm[Hg] - Sitting 73.00/ min 36627 520 60706 2 68.00 mm[Hg] - Sitting 120.00 mm[Hg] - Sitting 91616 520 12050 5 68.00 mm[Hg] - Sitting 120.00 mm[Hg] - Sitting 81603 521 80074 6 57.00 mm[Hg] - Sitting 112.00 mm[Hg] - Sitting 70.00/ min 13447 522 57963 7 59.00 mm[Hg] - Sitting 121.00 mm[Hg] - Sitting 71.00/ min 80980 523 06065 4 65.00 mm[Hg] - Lying Down 122.00 mm[Hg] - Lying Down 78.00/ min 64050 524 04837 5 52.00 mm[Hg] - Sitting 116.00 mm[Hg] - Sitting 73.00/ min 87025 525 74675 5 68.00 mm[Hg] - Sitting 118.00 mm[Hg] - Sitting 91002 526 66775 7 66.00 mm[Hg] - Sitting 120.00 mm[Hg] - Sitting 20390 527 08333 9 58.00 mm[Hg] - Sitting 104.00 mm[Hg] - Sitting 76.00/ min 55326 528 52532 9 63.00 mm[Hg] - Sitting 129.00 mm[Hg] - Sitting 73.00/ min 38858 529 91963 2 66.00 mm[Hg] - Sitting 118.00 mm[Hg] - Sitting 84.00/ min 70273 530 61511 2 68.00 mm[Hg] - Sitting 122.00 mm[Hg] - Sitting 71485 531 27869 8 72.00 mm[Hg] - Sitting 126.00 mm[Hg] - Sitting 62.00/ min 40571 601 82754 2 59.00 mm[Hg] - Sitting 109.00 mm[Hg] - Sitting 120.00 NI 97.50 Oral 76.00/ min 22.00/min 56520 601 70249 3 66.00 mm[Hg] - Sitting 116.00 mm[Hg] - Sitting 89005 602 12710 2 64.00 mm[Hg] - Sitting 118.00 mm[Hg] - Sitting 43815 603 68723 6 50.00 mm[Hg] - Sitting 111.00 mm[Hg] - Sitting 67.00/ min 71052 604 87469 8 61.00 mm[Hg] - Sitting 132.00 mm[Hg] - Sitting 73.00/ min 67123 605 90707 9 70.00 mm[Hg] - Sitting 119.00 mm[Hg] - Sitting 73.00/ min 41578 606 21945 5 71.00 mm[Hg] - Sitting 126.00 mm[Hg] - Sitting 70.00/ min 65140 607 58011 2 55.00 mm[Hg] - Sitting 98.00 mm[Hg] - Sitting 80.00/ min 37214 608 87379 2 66.00 mm[Hg] - Sitting 120.00 mm[Hg] - Sitting 19477 609 20113 1 72.00 mm[Hg] - Sitting 126.00 mm[Hg] - Sitting 96049 610 77410 6 55.00 mm[Hg] - Sitting 120.00 mm[Hg] - Sitting 73.00/ min 62040 611 15051 1 60.00 mm[Hg] - Sitting 89.00 mm[Hg] - Sitting 61.00/ min 81432 612 59933 6 70.00 mm[Hg] - Sitting 116.00 mm[Hg] - Sitting 71.00/ min Immunizations Vaccine Date Status COVID-19 05/23/2020 Completed COVID-19 06/13/2020 Completed COVID-19 02/09/2021 Completed COVID-19 09/29/2021 Completed COVID-19 01/26/2022 Completed Influenza 01/28/2018 Completed Influenza 01/27/2019 Completed Influenza 01/21/2020 Completed Influenza 01/27/2021 Completed Influenza 02/08/2022 Completed Influenza 01/26/2023 Completed
--- OUTSIDE RECORDS SUMMARY | 2024-02-15 23:07 | External Medical Summary | Continuity Of Care Document ---
Author Name Unknown Address [address] [place] [address] Organization [facility] ( ) Care Team Providers Care Manager E Commerce Name Role Phone Ceasar Vasquez Primary Care Provider [phone] VITAL SIGNS Date Time Diastolic blood pressure Systolic blood pressure Body height Body weight Temperature SpO2 Blood Sugar Pulse Respirations 14141 514 50405 9 70.00 mm[Hg] - Sitting 124.00 mm[Hg] - Sitting 71.00/ min 80095 515 68515 5 53.00 mm[Hg] - Sitting 126.00 mm[Hg] - Sitting 72.00/ min 81552 516 65656 3 72.00 mm[Hg] - Sitting 120.00 mm[Hg] - Sitting 65.00/ min 67065 517 13295 5 56.00 mm[Hg] - Sitting 126.00 mm[Hg] - Sitting 73.00/ min 52402 520 45814 2 68.00 mm[Hg] - Sitting 120.00 mm[Hg] - Sitting 80541 520 96903 5 68.00 mm[Hg] - Sitting 120.00 mm[Hg] - Sitting 34919 521 68529 6 57.00 mm[Hg] - Sitting 112.00 mm[Hg] - Sitting 70.00/ min 38737 522 06784 7 59.00 mm[Hg] - Sitting 121.00 mm[Hg] - Sitting 71.00/ min 65495 523 92402 4 65.00 mm[Hg] - Lying Down 122.00 mm[Hg] - Lying Down 78.00/ min 40862 524 11680 5 52.00 mm[Hg] - Sitting 116.00 mm[Hg] - Sitting 73.00/ min 29564 525 60857 5 68.00 mm[Hg] - Sitting 118.00 mm[Hg] - Sitting 65403 526 03101 7 66.00 mm[Hg] - Sitting 120.00 mm[Hg] - Sitting 20150 527 84733 9 58.00 mm[Hg] - Sitting 104.00 mm[Hg] - Sitting 76.00/ min 31788 528 30786 9 63.00 mm[Hg] - Sitting 129.00 mm[Hg] - Sitting 73.00/ min 05413 529 79809 2 66.00 mm[Hg] - Sitting 118.00 mm[Hg] - Sitting 84.00/ min 22487 530 35194 2 68.00 mm[Hg] - Sitting 122.00 mm[Hg] - Sitting 90905 531 43735 8 72.00 mm[Hg] - Sitting 126.00 mm[Hg] - Sitting 62.00/ min 64232 601 44404 2 59.00 mm[Hg] - Sitting 109.00 mm[Hg] - Sitting 120.00 NI 97.50 Oral 76.00/ min 22.00/min 02771 601 95643 3 66.00 mm[Hg] - Sitting 116.00 mm[Hg] - Sitting 81033 602 06904 2 64.00 mm[Hg] - Sitting 118.00 mm[Hg] - Sitting 05873 603 82851 6 50.00 mm[Hg] - Sitting 111.00 mm[Hg] - Sitting 67.00/ min 91210 604 12187 8 61.00 mm[Hg] - Sitting 132.00 mm[Hg] - Sitting 73.00/ min 24037 605 96820 9 70.00 mm[Hg] - Sitting 119.00 mm[Hg] - Sitting 73.00/ min 35570 606 79920 5 71.00 mm[Hg] - Sitting 126.00 mm[Hg] - Sitting 70.00/ min 21858 607 99426 2 55.00 mm[Hg] - Sitting 98.00 mm[Hg] - Sitting 80.00/ min 40395 608 05574 2 66.00 mm[Hg] - Sitting 120.00 mm[Hg] - Sitting 42656 609 08661 1 72.00 mm[Hg] - Sitting 126.00 mm[Hg] - Sitting 26235 610 39995 6 55.00 mm[Hg] - Sitting 120.00 mm[Hg] - Sitting 73.00/ min 96525 611 69705 1 60.00 mm[Hg] - Sitting 89.00 mm[Hg] - Sitting 61.00/ min 25613 612 11245 6 70.00 mm[Hg] - Sitting 116.00 mm[Hg] - Sitting 71.00/ min Immunizations Vaccine Date Status COVID-19 05/23/2020 Completed COVID-19 06/13/2020 Completed COVID-19 02/09/2021 Completed COVID-19 09/29/2021 Completed COVID-19 01/26/2022 Completed Influenza 01/28/2018 Completed Influenza 01/27/2019 Completed Influenza 01/21/2020 Completed Influenza 01/27/2021 Completed Influenza 02/08/2022 Completed Influenza 01/26/2023 Completed
--- OUTSIDE RECORDS SUMMARY | 2024-02-15 23:07 | External Medical Summary ---
Author Name Unknown Address Unknown Organization K0G:[facility] [place] [address] Laboratory Report Ordering Provider Test Date Status YAKELIN MCNAMARA 10/05/2023 06:00:00 Final Observation Date Value Abnormality Reference (Units ) Status AST (Aspartate aminotransferase) 10/05/2023 06:00:00 18 10-35 (U/L) Final Performing Location [facility] 0 - [address] [place] [id number]
--- OUTSIDE RECORDS SUMMARY | 2024-02-15 23:07 | External Medical Summary | Summary of Care ---
Author Name Unknown Organization [facility] [address] [facility] [address] Phone [phone] Care Team Providers Care Sprayer Leather Name Role Phone Unavailable Primary Care Provider Unavailabl e Encounter Details Date Type Department Care Team (Late st Contact Info) Description 10/05/2023 Orders Only Lab [facility] [address] [place] [address] Cally Mills MD [address] [place] [address] [place] [address] Dyslipidemia*; Vitamin D deficiency, unspecified; Anemia due to vitamin B12 deficiency, unspecified B12 deficiency type; Vitamin B12 deficiency anemia, unspecified Allergies No known active allergiesdocumented as of this encounter (statuses as of 10/05/2023) Medications Medication Sig Dispensed Refills Start Date [...] Pain, Severe or Pain, Moderate. 10/03/2023 Active documented as of this encounter (statuses as of 10/05/2023) Active Problems Problem Noted Date Diagnosed Date [...] as of this encounter (statuses as of 10/05/2023) Resolved Problems Problem Noted Date Diagnosed Date Resolved Date Aortic stenosis 03/05/2012 02/10/2013 Hypokalemia 01/29/2012 10/03/2023 HTN, goal below 130/80 07/19/201001/28 HTN, goal below 140/90 02/19/200907/19 Overview: Modified per HTN Taxonomy. ACTIVE CASE MANAGEMENT 11/26/200801/31 Overview: Janina Arizmendi RN [phone] Cerebrovascular accident (CV A) due to thrombosis of cerebral artery 11/26/2008 10/03/2023 Overview: Right parietal CVA 11/17/08 Dyslipidemia, goal to be determined 09/13/2006 07/19/2010 Cerebrovascular event, ill-d efined, within last 8 weeks 04/06/2009 Overview: Modified by CVA Protocol #8. documented as of this encounter (statuses as of 10/05/2023) Immunizations Name Administration Dates Next Due Pneumococcal [...] Care Team (Late st Contact Info) Description 10/05/2023 10:40 AM EDT Laboratory Lab [facility] [address] [facility] [place] [address] [place] [address] Arrived Scheduled Orders Name Type Priority Associated Diagnoses Orde r Schedule LIPID PANEL WITH DIRECT LDL IF TG IS HIGH Lab Routine Dyslipidemia Vitamin D deficiency, unspecified Anemia due to vitamin B12 deficiency, unspecified B12 deficiency type Vitamin B12 deficiency anemia, unspecified Expected: 10/05/2023, Expires: 10/04/2024 ALT Lab Routine Dyslipidemia Vitamin D deficiency, unspecified Anemia due to vitamin B12 deficiency, unspecified B12 deficiency type Vitamin B12 deficiency anemia, unspecified Expected: 10/05/2023, Expires: 10/04/2024 AST Lab Routine Dyslipidemia Vitamin D deficiency, unspecified Anemia due to vitamin B12 deficiency, unspecified B12 deficiency type Vitamin B12 deficiency anemia, unspecified Expected: 10/05/2023, Expires: 10/04/2024 25-HYDROXY VITAMIN D Lab Routine Dyslipidemia Vitamin D deficiency, unspecified Anemia due to vitamin B12 deficiency, unspecified B12 deficiency type Vitamin B12 deficiency anemia, unspecified Expected: 10/05/2023, Expires: 10/04/2024 VITAMIN B12 Lab Routine Dyslipidemia Vitamin D deficiency, unspecified Anemia due to vitamin B12 deficiency, unspecified B12 deficiency type Vitamin B12 deficiency anemia, unspecified Expected: 10/05/2023, Expires: 10/04/2024 TSH WITH FREE T4 IF INDICATED Lab Routine Dyslipidemia Vitamin D deficiency, unspecified Anemia due to vitamin B12 deficiency, unspecified B12 deficiency type Vitamin B12 deficiency anemia, unspecified Expected: 10/05/2023, Expires: 10/04/2024 Health Maintenance Due Date Last Done Comments Albumin/Creatinine Ratio 1952 Diabetic Eye Exam 1952 Diabetic Foot Exam 1953 Zoster Vaccines (1 of 2) 1984 DTaP,Tdap,and Td Vaccines (1 - Tdap) 09/17/2007 09/16/2007 Pneumococcal Vaccine: 65+ Years (2 of 2 - PCV) 07/20/2011 07/19/2010 Depression Screening 02/10/2014 02/10/2013 DXA Scan 10/10/2014 10/10/2012, 10/01/2009 *LDL AFTER STARTING A STATIN 08/28/2017 COVID-19 Vaccine (1 - season) 2022 Influenza Vaccine (FLU shot) (Season Ended) 2023 02/10/2013, 01/29/2012, 01/17/2011, Additional history exists HbA1c 04/01/2024 10/01/2023, 02/05/2020 VITAMIN D LEVEL ONCE IN A LIFETIME-USE SMARTSET# 37993 Completed 04/07/2021, 02/05/2020, 07/16/2009 GARDASIL-HPV IMMUNIZATION SERIES Aged Out No longer [...] as of this encounter Visit Diagnoses Diagnosis Dyslipidemia- Primary Other and unspecified hyperlipidemia Vitamin D deficiency, unspecified Anemia due to vitamin B12 deficiency, unspecified B12 deficiency type documented in this encounter
--- OUTSIDE RECORDS SUMMARY | 2024-02-15 23:07 | External Medical Summary ---
Author Name Unknown Address Unknown Organization [facility] [address] [place] [address] Laboratory Report Ordering Provider Test Date Status YAKELIN MCNAMARA 10/01/2023 05:48:00 Final Observation Date Value Abnormality Reference (Units ) Status BUN 10/01/2023 05:48:00 28 Above high normal 6-20 (mg/dL) Final Creatinine 10/01/2023 05:48:00 0.8 0.5-1.0 (mg/dL) Final Glomerular filtration rate/1.73 sq M.predicted [Volume Rate/Area] in Serum, Plasma or Blood by Creatinine-based formula (CKD-EPI) 10/01/2023 05:48:00 70 >=60 (mL/min) Final eGFR is calculated based on the CKD-EPI 2020 equation Sodium 10/01/2023 05:48:00 141 135-146 (m mol/L) Final Potassium 10/01/2023 05:48:00 3.7 3.5-5.1 (m mol/L) Final Cl 10/01/2023 05:48:00 102 98-107 (mm ol/L) Final CO2 10/01/2023 05:48:00 29 22-32 (mmo l/L) Final Anion gap 10/01/2023 05:48:00 10 7-15 (mmol /L) Final Glucose 10/01/2023 05:48:00 113 70-120 (mg /dL) Final Calcium 10/01/2023 05:48:00 9.8 8.4-10.2 ( mg/dL) Final Performing [facility] - [address] [place] [address]
--- OUTSIDE RECORDS SUMMARY | 2024-02-15 23:07 | External Medical Summary | Continuity Of Care Document ---
Author Name Unknown Address [address] [place] [address] Organization [facility] ( ) Care Team Providers Care Wholesale Buyer Name Role Phone Cally Mills Primary Care Provider [phone] Problems Code Description Start Date End Date [...] weight Temperature SpO2 Blood Sugar Pulse Respirations 520 51709 2 68.00 mm[Hg] - Sitting 120.00 mm[Hg] - Sitting 520 74981 5 68.00 mm[Hg] - Sitting 120.00 mm[Hg] - Sitting 521 48152 6 57.00 mm[Hg] - Sitting 112.00 mm[Hg] - Sitting 70.00/ min 522 41714 7 59.00 mm[Hg] - Sitting 121.00 mm[Hg] - Sitting 71.00/ min 02342 523 59210 4 65.00 mm[Hg] - Lying Down 122.00 mm[Hg] - Lying Down 78.00/ min 85463 524 26263 5 52.00 mm[Hg] - Sitting 116.00 mm[Hg] - Sitting 73.00/ min 525 68979 5 68.00 mm[Hg] - Sitting 118.00 mm[Hg] - Sitting 62593 526 12025 7 66.00 mm[Hg] - Sitting 120.00 mm[Hg] - Sitting 14579 527 43782 9 58.00 mm[Hg] - Sitting 104.00 mm[Hg] - Sitting 76.00/ min 45797 528 03071 9 63.00 mm[Hg] - Sitting 129.00 mm[Hg] - Sitting 73.00/ min 93979 529 98249 2 66.00 mm[Hg] - Sitting 118.00 mm[Hg] - Sitting 84.00/ min 32552 530 92212 2 68.00 mm[Hg] - Sitting 122.00 mm[Hg] - Sitting 14252 531 43927 8 72.00 mm[Hg] - Sitting 126.00 mm[Hg] - Sitting 62.00/ min 79759 601 61259 2 59.00 mm[Hg] - Sitting 109.00 mm[Hg] - Sitting 120.00 NI 97.50 Oral 76.00/ min 22.00/min 35006 601 04738 3 66.00 mm[Hg] - Sitting 116.00 mm[Hg] - Sitting 49400 602 16304 2 64.00 mm[Hg] - Sitting 118.00 mm[Hg] - Sitting 16283 603 09277 6 50.00 mm[Hg] - Sitting 111.00 mm[Hg] - Sitting 67.00/ min 56564 604 50581 8 61.00 mm[Hg] - Sitting 132.00 mm[Hg] - Sitting 73.00/ min 71917 605 37915 9 70.00 mm[Hg] - Sitting 119.00 mm[Hg] - Sitting 73.00/ min 96413 606 24586 5 71.00 mm[Hg] - Sitting 126.00 mm[Hg] - Sitting 70.00/ min 90228 607 07594 2 55.00 mm[Hg] - Sitting 98.00 mm[Hg] - Sitting 80.00/ min 88561 608 53851 2 66.00 mm[Hg] - Sitting 120.00 mm[Hg] - Sitting 64642 609 63554 1 72.00 mm[Hg] - Sitting 126.00 mm[Hg] - Sitting 37129 610 46253 6 55.00 mm[Hg] - Sitting 120.00 mm[Hg] - Sitting 73.00/ min 37318 611 10451 1 60.00 mm[Hg] - Sitting 89.00 mm[Hg] - Sitting 61.00/ min 33536 612 21827 6 70.00 mm[Hg] - Sitting 116.00 mm[Hg] - Sitting 71.00/ min 77153 613 11941 0 122.00 NI 98.20 Oral 98.00 % 71.00/ min 18.00/min 34697 613 53422 0 59 NI 82708 613 75512 8 59 NI 57847 613 23625 5 98.20 Oral 00538 613 28134 0 70.00 mm[Hg] - Sitting 116.00 mm[Hg] - Sitting 71.00/ min 18.00/min 44786 614 29724 1 09437 614 77208 3 33453 614 86769 0 119.00 NI 76818 614 60263 0 70.00 mm[Hg] - Sitting 116.00 mm[Hg] - Sitting 98.20 Oral 71.00/ min 18.00/min 86817 614 08271 6 74.00 mm[Hg] - Sitting 133.00 mm[Hg] - Sitting 98.30 Ear 95.00 % 82.00/ min 18.00/min 30083 615 39019 5 66.00 mm[Hg] - Sitting 118.00 mm[Hg] - Sitting 98.30 Ear 94.00 % 78.00/ min 18.00/min 25076 615 23956 9 66.00 mm[Hg] - Sitting 118.00 mm[Hg] - Sitting 98.30 Ear 78.00/ min 18.00/min 11643 616 35325 0 72.00 mm[Hg] - Sitting 124.00 mm[Hg] - Sitting 97.00 Ear 96.00 % 75.00/ min 16.00/min Immunizations Vaccine Date Status COVID-19 05/23/2020 Completed COVID-19 06/13/2020 Completed COVID-19 02/09/2021 Completed COVID-19 09/29/2021 Completed COVID-19 01/26/2022 Completed Influenza 01/28/2018 Completed Influenza 01/27/2019 Completed Influenza 01/21/2020 Completed Influenza 01/27/2021 Completed Influenza 02/08/2022 Completed Influenza 01/26/2023 Completed
--- OUTSIDE RECORDS SUMMARY | 2024-02-15 23:07 | External Medical Summary | Continuity Of Care Document ---
Author Name Unknown Address [address] [place] [address] Organization [facility] ( ) Care Team Providers Care Superintendent Drivers Name Role Phone Ceasar Vasquez Primary Care Provider [phone] VITAL SIGNS Date Time Diastolic blood pressure Systolic blood pressure Body height Body weight Temperature SpO2 Blood Sugar Pulse Respirations 18261 514 34123 9 70.00 mm[Hg] - Sitting 124.00 mm[Hg] - Sitting 71.00/ min 00067 515 24075 5 53.00 mm[Hg] - Sitting 126.00 mm[Hg] - Sitting 72.00/ min 80313 516 17692 3 72.00 mm[Hg] - Sitting 120.00 mm[Hg] - Sitting 65.00/ min 34392 517 62016 5 56.00 mm[Hg] - Sitting 126.00 mm[Hg] - Sitting 73.00/ min 83756 520 05826 2 68.00 mm[Hg] - Sitting 120.00 mm[Hg] - Sitting 80629 520 11993 5 68.00 mm[Hg] - Sitting 120.00 mm[Hg] - Sitting 07917 521 77087 6 57.00 mm[Hg] - Sitting 112.00 mm[Hg] - Sitting 70.00/ min 61645 522 23611 7 59.00 mm[Hg] - Sitting 121.00 mm[Hg] - Sitting 71.00/ min 07867 523 89569 4 65.00 mm[Hg] - Lying Down 122.00 mm[Hg] - Lying Down 78.00/ min 97970 524 75890 5 52.00 mm[Hg] - Sitting 116.00 mm[Hg] - Sitting 73.00/ min 14543 525 72820 5 68.00 mm[Hg] - Sitting 118.00 mm[Hg] - Sitting 22061 526 54315 7 66.00 mm[Hg] - Sitting 120.00 mm[Hg] - Sitting 53777 527 94511 9 58.00 mm[Hg] - Sitting 104.00 mm[Hg] - Sitting 76.00/ min 16062 528 42986 9 63.00 mm[Hg] - Sitting 129.00 mm[Hg] - Sitting 73.00/ min 58430 529 45998 2 66.00 mm[Hg] - Sitting 118.00 mm[Hg] - Sitting 84.00/ min 16993 530 55787 2 68.00 mm[Hg] - Sitting 122.00 mm[Hg] - Sitting 37421 531 45579 8 72.00 mm[Hg] - Sitting 126.00 mm[Hg] - Sitting 62.00/ min 04954 601 85329 2 59.00 mm[Hg] - Sitting 109.00 mm[Hg] - Sitting 120.00 NI 97.50 Oral 76.00/ min 22.00/min 83888 601 20304 3 66.00 mm[Hg] - Sitting 116.00 mm[Hg] - Sitting 94650 602 03099 2 64.00 mm[Hg] - Sitting 118.00 mm[Hg] - Sitting 70987 603 18894 6 50.00 mm[Hg] - Sitting 111.00 mm[Hg] - Sitting 67.00/ min 11803 604 61437 8 61.00 mm[Hg] - Sitting 132.00 mm[Hg] - Sitting 73.00/ min 23014 605 06617 9 70.00 mm[Hg] - Sitting 119.00 mm[Hg] - Sitting 73.00/ min 98582 606 97463 5 71.00 mm[Hg] - Sitting 126.00 mm[Hg] - Sitting 70.00/ min 19989 607 34948 2 55.00 mm[Hg] - Sitting 98.00 mm[Hg] - Sitting 80.00/ min 31818 608 28726 2 66.00 mm[Hg] - Sitting 120.00 mm[Hg] - Sitting 78090 609 63848 1 72.00 mm[Hg] - Sitting 126.00 mm[Hg] - Sitting 93782 610 77984 6 55.00 mm[Hg] - Sitting 120.00 mm[Hg] - Sitting 73.00/ min 13666 611 41492 1 60.00 mm[Hg] - Sitting 89.00 mm[Hg] - Sitting 61.00/ min 12277 612 24826 6 70.00 mm[Hg] - Sitting 116.00 mm[Hg] - Sitting 71.00/ min Immunizations Vaccine Date Status COVID-19 05/23/2020 Completed COVID-19 06/13/2020 Completed COVID-19 02/09/2021 Completed COVID-19 09/29/2021 Completed COVID-19 01/26/2022 Completed Influenza 01/28/2018 Completed Influenza 01/27/2019 Completed Influenza 01/21/2020 Completed Influenza 01/27/2021 Completed Influenza 02/08/2022 Completed Influenza 01/26/2023 Completed
--- OUTSIDE RECORDS SUMMARY | 2024-02-15 23:07 | External Medical Summary ---
Author Name Unknown Address Unknown Organization K01:[facility] - [address] [facility] [address] Laboratory Report Ordering Provider Test Date Status YAKELIN MCNAMARA 10/01/2023 05:48:00 Final Observation Date Value Abnormality Reference (Units ) Status HbA1C 10/01/2023 05:48:00 6.2 Above high normal 4. 0-5.6 (%) Final The use of HbA1c to monitor glycemic status is based on normal hemoglobin and HbA composition. This test should not be used in patients with abnormal hemoglobin that affects the half life of the red blood cell or the in vivo glycation rates. Glucose, estimated average 10/01/2023 05:48:00 131 Above high normal <126 (mg/dL) [place] Performing Location [facility] - [address] [address] [facility] [address]
[2024-02-15] MEDS: rOPINIRole HCL 0.25 MG TABLET PO SCH (23:22)
[2024-02-16] MEDS: DONEPEZIL HCL 10 MG TAB PO SCH (02:24)
[2024-02-16] MEDS: METOPROLOL TARTRATE 25 MG TAB PO SCH (02:24)
[2024-02-16] MEDS: SIMVASTATIN 40 MG TAB PO SCH (02:24)
[2024-02-16] MEDS: CEFEPIME 1000MG 1,000 MG/10 ML SYR IV SCH (03:16)
--- OUTSIDE RECORDS SUMMARY | 2024-02-16 04:17 | External Medical Summary | Summary of Care ---
Author Name Unknown Organization [facility] Address [address] [facility] [place] [address] Phone [phone] Care Team Providers Care Travel Registered Nurse Nicu Name Role Phone Unavailable Primary Care Provider Unavailabl e Reason for Visit * Reason Onset Date Comments Complicated Acute Visit 02/15/2024 Encounter Details Date Type Department Care Team (Latest Contact Info) Description 02/15/2024 7:30 AM EDT [facility] Visit [facility] [address] [place] [address] Gilda Castaneda PA-C [address] [place] [address] Altered mental status, unspecified altered mental status type*; Fever, unspecified fever cause; Fall, initial encounter; Contusion of forehead, initial encounter; 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
[2024-02-16] MEDS: ACETAMINOPHEN 1,000 MG/100 ML VIAL IV PRN (04:58)
[2024-02-16 06:05] LABS: Hematocrit (blood only) 29.9 % (37.0-47.0); Hemoglobin 10.3 g/dl (12.0-16.0); Mean Corpuscular Hemoglobin 29.1 pg (25.0-34.0); Mean Corpuscular Hgb Conc 34.4 g/dL (32.0-36.0); Mean Corpuscular Volume 84.5 fL (80.0-100.0); Platelet Count 131 K/uL (130-400); RDW Coefficient of Variation 13.5 % (11.5-14.5); RDW Standard Deviation 41.8 fL (36.4-46.3); Red Blood Count 3.54 M/uL (4.20-5.40); White Blood Count 26.18 K/ul (4.8-10.8)
[2024-02-16 06:19] LABS: Albumin Globulin Ratio 1.2 (0.9-2); Albumin Level 2.9 gm/dl (3.4-5.0); BUN Creatinine Ratio 28.7 (10-20); Bilirubin,Total 0.5 mg/dl (0.2-1.0); Calcium 8.4 mg/dl (8.6-10.3); Creatinine Clr Calc Pharmacy 19.2 ml/min; Globulin 2.5 gm/dl (2.5-4.0); Magnesium 2.3 mg/dl (1.7-2.4); Phosphorus 1.9 mg/dl (2.5-4.9); Potassium 2.9 mmol/L (3.5-5.1); Total Protein 5.4 gm/dl (6.0-8.3)
[2024-02-16 06:27] LABS: Troponin I High Sensitivity 1813.3 pg/ml (0-14)
[2024-02-16 06:29] LABS: Basophils # (auto) 0.06 K/uL (0.00-0.20); Basophils % (auto) 0.2 %; Eosinophils # (auto) 0.01 K/uL (0.00-0.50); Immature Granulocytes # (auto) 0.42 K/uL (0.01-0.20); Immature Granulocytes % (auto) 1.6 %; Lymphocytes # (auto) 0.63 K/uL (1.20-3.40); Lymphocytes % (auto) 2.4 %; Monocytes # (auto) 1.74 K/uL (0.11-0.59); Monocytes % (auto) 6.6 %; Neutrophils # (auto) 23.32 K/uL (1.40-6.50); Neutrophils % (auto) 89.2 %; Polychromasia 1+
[2024-02-16] MEDS ORDERED: POTASSIUM PHOS 3 MMOL/1 ML INFUSION IV STA (06:41)
[2024-02-16] MEDS: POTASSIUM CHLORIDE CRTAB 20 MEQ TABCR PO STA (07:05)
[2024-02-16] MEDS: POTASSIUM CHLORIDE / WTR 10 MEQ/100 ML PLCT IV SCH (07:15)
[2024-02-16] MEDS: LACTATED RINGER'S 500 ML IV ONE (08:09)
[2024-02-16] MEDS: CLOPIDOGREL BISULFATE 75 MG TAB PO SCH (09:29)
[2024-02-16] MEDS: POTASSIUM PHOSPHATE 15 MMOL in DEXTROSE 5% 250 ML IV ONE (10:16)
[2024-02-16 14:56] LABS: BUN Creatinine Ratio 31.2 (10-20); Calcium 8.5 mg/dl (8.6-10.3); Creatinine Clr Calc Pharmacy 25.1 ml/min; Potassium 3.9 mmol/L (3.5-5.1)
[2024-02-16 15:00] LABS: A calco-baum cmplx NotReported Not Detected (NotDetected); Bact fragilis Not Reported Not Detected (NotDetected); Blood Culture Id Panel See PCR Comment (NotDetected); C auris Not Reported Not Detected (NotDetected); CTX-M Resistant Gene Not Detected (NotDetected); Calbicans Not Reported Not Detected (NotDetected); Candida glabrata Not Reported Not Detected (NotDetected); Candida krusei Not Reported Not Detected (NotDetected); Cneoformans/gatti Not Reported Not Detected (NotDetected); Cparapsilosis Not Reported Not Detected (NotDetected); E cloacae compx Not Reported Not Detected (NotDetected); Efaecalis Not Reported Not Detected (NotDetected); Efaecium Not Reported Not Detected (NotDetected); Enterobacterales DETECTED (NotDetected); Enterobacterales Not Reported DETECTED (NotDetected); Escherichia coli Not Reported Not Detected (NotDetected); H influenzae Not Reported Not Detected (NotDetected); IMP Resistant Gene Not Detected (NotDetected); K aerogenes Not Reported Not Detected (NotDetected); KPC Resistant Gene Not Detected (NotDetected); Koxytoca Not Reported Not Detected (NotDetected); Kpneumoniae grp Not Reported Not Detected (NotDetected); Lmonocyt Not Reported Not Detected (NotDetected); N meningitidis Not Reported Not Detected (NotDetected); NDM Resistant Gene Not Detected (NotDetected); OXA 48 Like Resistant Gene Not Detected (NotDetected); P aeruginosa Not Reported Not Detected (NotDetected); Proteus spp Not Reported DETECTED (NotDetected); Salmonella spp Not Reported Not Detected (NotDetected); Staph lugdunensis Not Reported Not Detected (NotDetected); Staph spp. Not Reported Not Detected (NotDetected); Staphaureus Not Reported Not Detected (NotDetected); Staphepi Not Reported Not Detected (NotDetected); Stenmaltophilia Not Reported Not Detected (NotDetected); Strep agal(GrpB) Not Reported Not Detected (NotDetected); Strep pneum Not Reported Not Detected (NotDetected); Strep pyog (GrpA) Not Reported Not Detected (NotDetected); Strep spp Not Reported Not Detected (NotDetected); VIM Resistant Gene Not Detected (NotDetected)
[2024-02-16 15:06] LABS: Proteus species DETECTED (NotDetected)
[2024-02-16 15:12] LABS: Troponin I High Sensitivity 1516.3 pg/ml (0-14)
--- NOTE | 2024-02-16 15:29 | Hospitalist Progress Note ---
<Statement entered by Aundrea Ceja MD - 02/16/24 18:46> I have reviewed vital signs, chart notes, labs and imaging. I have personally seen, evaluated and examined the patient. I have also discussed the management of the patient with the EDER and I agree with the exam findings documented in the history and physical examination and the documented assessment and plan unless otherwise stated below. On exam Moon opens her eyes but is not verbal, pushes me away, heart is regular tachycardic lungs are clear anteriorly abdomen is soft nontender nondistended, extremities are warm and well-perfused no leg edema I updated her daughter at the bedside this afternoon - goals of carelimited interventions, no invasive procedures, DNR/DNI per patient's previously stated wishes. severe sepsis with mild fluid responsive hypotension due to Proteus bacteremia related to urinary tract infection, CLARKE due to sepsis, acute metabolic encephalopathy due to sepsis, new onset of rapid atrial fibrillation continue IV antibiotics, will be able to narrow once sensitivities available. Proteus should be susceptible to cefepime Consider renal ultrasound she does have a history of left nephrolithiasis, however, her daughter reports that she would not want to have any invasive procedures thus ultrasound may change prognosis but not necessarily management for rapid A-fib she is borderline hypotensive still we have started treatment with IV digoxin, assess response. If ineffective and blood pressure is adequate could consider IV metoprolol or diltiazem, her EF is unknown, if hypotensive can consider amiodarone however this carries the risk of cardioversion/stroke. It seems like chronic anticoagulation would probably not be within her goals of care we will need to discuss in more detail with her daughter she has been on Plavix and simvastatin for vague history of TIA like episodes. Date of Service February 16, 2024 Assessment & Plan (1) Sepsis: Plan: SIRS. Blood cultures showing Enterobacter and Proteus. Currently on Cefepime which will cover. Prelim urine cultures positive for proteus. - Admit PCU - 500cc bolus this AM for low BP, continue to monitor. Pt continues with LR 125ml/hr. - CBC: WBC 39.15 --> 26.18, H&H 11.8/35.6 --> 10.3/29.9 - Cr 2.39 -->1.09 - Lactate 4.4, procalcitonin 75.9, magnesium 1.6 - Troponin 1301.1 -->1813-->1516, EKG without ischemic changes; - Continue Cefepime 2 g twice daily - CBC, BMP a.m. (2) Urinary tract infection: Plan: UA with signs of infection (as above) - Unable to express symptomatology 2/2 dementia - No reported h/o pseudomonas - No CTAP at this time - Continue cefepime 2g - Prelim culture showing proteus, continue on cefepime and await sensitives. (3) Acute kidney injury: Plan: Baseline creatinine 0.7-0.9 - Cr at admission 2.39-->1.43-->1.09, BUN 47-->34 - Received IV fluids - BMP a.m. (4) Dementia: Plan: Resides at [facility] - Continue donepezil - Ancillary therapy: Increase familiarity of setting as able + promote good sleep hygiene (melatonin) (5) Diabetes mellitus: Plan: T2DM, insulin reuben - On metformin 500 mg daily at home - A1c 6.2% (06/07) - SSI with target BSG range 120-160 mg/dL, CF 30, carb ratio 10 - BG ACHS - Adjust regimen as needed (6) HTN (hypertension): Plan: - Metoprolol tartrate 25 mg daily - HCTZ 50 mg daily; Hold 2/2 CLARKE (7) Elevated troponin: Plan: - Currently on clopidogrel, metoprolol and simvastatin. Further workup would not significantly change treatment plan. Troponin trending down. (8) Hypokalemia: Plan: Given 3 runs of 10meq plus potassium phosphate. K 3.5->2.9->3.9 Mag corrected 1.6->2.3 BMP tomorrow Plan HLD- Simvastatin 40 mg RLS- Ropinirole 0.5 mg - On plavix 75mg Not for escalation of care to vasopressors; DNR/DNI. Daughter kofi SAEEDA paperwork with her. VTE Prophylaxis: SCDs Code: DNR/DNI Admission and Anticipated Discharge Date Admission Date: February 15, 2024 Marcelina Mustafa is a 88-year-old female who presented to the ER from [facility] secondary to ongoing fever and a recent fall out of her chair on 02/14. Vitals were found to be hypotensive but tachycardic when EMS arrived. ED course: WBC 39.15 with left shift (35.55), H&H 11.8/35.6, lymphs 0.85, monocytes 1.98, immature granulocytes 0.67; CMP-BUN 47, creatinine 2.39, glucose 226; lactate 4.4; magnesium 1.6; troponin 1301.1; procalcitonin 75.9; UA shows turbid urine, 3+ protein, trace ketones, 3+ blood, 3+ leukocyte esterase, > 50 WBC, 11-20 RBC, > 20 hyaline cast, 4+ bacteria, presence of yeast; BioFire negative; Chest x-ray without acute findings, head CT without acute findings; EKG showing no ST elevation or depression. Today, Moon is resting comfortably in bed. Her daughter is at the bedside and brought in her POA paperwork. Moon is demented. She denies any pain. Nurse reports that she was incontinent of both stool and urine earlier this AM. Moon was given a 500 cc bolus of LR this morning and continues on 125 mL/hr. Review of Systems Review of Systems: Pt is poor historian due to dementia Constitutional: no fever and no chills Respiratory: no cough and no dyspnea Cardiovascular: no chest pain Gastrointestinal: no abdominal pain Neurologic: + confusion Physical Exam Constitutional: Arousable, falls back asleep Eyes: PERRL, conjunctivae normal, anicteric sclerae Neck: normal visual inspection Respiratory: normal respiratory effort, lungs clear to auscultation Cardiovascular: Rate/Rhythm: regular rhythm and + tachycardic Extremities: no edema Gastrointestinal (Abdomen): Inspection/Auscultation: abdomen normal to inspection Percussion/Palpation: abdomen soft; abdomen nontender Neurologic: Resting in bed, arousable. Falls back to sleep Psychiatric: Orientation: + not oriented x 3 Results & Data Results & Data Vital Signs (Past 12 Hours) Vital Signs Temp Pulse Pulse Resp BP Pulse Ox O2 Del Method 02/16/24 14:36 100 H 02/16/24 11:05 96/45 L 02/16/24 10:46 37 C 106 H 15 87/52 L 96 Room Air 02/16/24 07:46 37 C 100 H 18 93/59 L 97 Room Air 02/16/24 07:15 Room Air 02/16/24 07:15 100 H 02/16/24 03:54 38.4 C H 112 H 18 92/53 L 93 Room Air Laboratory Results 02/16/24 02/16/24 02/16/24 Range/Units Unknown 14:13 11:42 WBC (4.8-10.8) K/ul RBC (4.20-5.40) M/uL Hgb (12.0-16.0) g/dl Hct (37.0-47.0) % MCV (80.0-100.0) fL MCH (25.0-34.0) pg MCHC (32.0-36.0) g/dL RDW Std Deviation (36.4-46.3) fL RDW Coeff of Ruben (11.5-14.5) % Plt Count (130-400) K/uL MPV (9.4-12.4) fL Immature Gran % (Auto) % Neut % (Auto) % Lymph % (Auto) % [place] % (Auto) % Eos % (Auto) % Baso % (Auto) % Neut # (Auto) (1.40-6.50) K/uL Lymph # (Auto) (1.20-3.40) K/uL [place] # (Auto) (0.11-0.59) K/uL Eos # (Auto) (0.00-0.50) K/uL Baso # (Auto) (0.00-0.20) K/uL Immature Gran # (Auto) (0.01-0.20) K/uL Hyposegmented Neuts Polychromasia Sodium 138 (136-145) mmol/L Potassium 3.9 D (3.5-5.1) mmol/L Chloride 108 H (98-107) mmol/L Carbon Dioxide 22 (21-32) mmol/L Anion Gap 8 (3-11) BUN 34 H (6-23) mg/dl Creatinine 1.09 D (0.6-1.2) mg/dl Est Cr Clr Drug Dosing 25.1 ml/min eGFR 48.56 BUN/Creatinine Ratio 31.2 H (10-20) Glucose 145 H (70-99(Fasting)) mg/dl POC Glucose 130 H (70-99) mg/dl Lactate (0.4-2.0) mmol/L Calcium 8.5 L (8.6-10.3) mg/dl Phosphorus (2.5-4.9) mg/dl Magnesium (1.7-2.4) mg/dl Total Bilirubin (0.2-1.0) mg/dl Direct Bilirubin (0-0.2) mg/dl AST (13-39) U/L ALT (7-52) U/L Alkaline Phosphatase (34-104) U/L Troponin I High Sens 1516.3 H* (0-14) pg/ml Total Protein (6.0-8.3) gm/dl Albumin (3.4-5.0) gm/dl Globulin (2.5-4.0) gm/dl Albumin/Globulin Ratio (0.9-2) Procalcitonin (0-0.5) ng/ml Urine Color Urine Appearance (Clear) Urine pH (4.5-7.5) Ur Specific [place] (1.000-1.030) Urine Protein (Negative) Urine Glucose (UA) (Negative) Urine Ketones (Negative) Urine Blood (Negative) Urine Nitrite (Negative) Urine Bilirubin (Negative) Urine Urobilinogen (Negative) Ur Leukocyte Esterase (Negative) Urine WBC (Auto) (0-5) /hpf Urine RBC (Auto) (0-2) /hpf U Hyaline Cast (Auto) (0-2) /lpf U Epithel Cells (Auto) (0-2) /hpf Urine Bacteria (Auto) (None Seen) Urine Yeast (None Prsent) Nasal Screen MRSA (PCR) Negative (Negative) Adenovirus (PCR) (NotDetected) B. pertussis DNA (PCR) (NotDetected) B.parapertussis DNA PCR (NotDetected) C. pneumoniae DNA (PCR) (NotDetected) Coronavirus OC43 (PCR) (NotDetected) Coronavirus HKU1 (PCR) (NotDetected) Coronavirus 229E (PCR) (NotDetected) SARS-CoV-2 (PCR) (NotDetected) Coronavirus NL63 (PCR) (NotDetected) Enterobacterales (PCR) (NotDetected) Human Metapneumovir PCR (NotDetected) Influenza Type A (PCR) (NotDetected) Influenza Type B (PCR) (NotDetected) M. pneumoniae (PCR) (NotDetected) Parainfluenza 1 (PCR) (NotDetected) Parainfluenza 2 (PCR) (NotDetected) Parainfluenza 3 (PCR) (NotDetected) Parainfluenza 4 (PCR) (NotDetected) Proteus species (PCR) (NotDetected) RSV (PCR) (NotDetected) Entero/Rhino (PCR) (NotDetected) blaIMP Car res Gene PCR (NotDetected) KPC-Carbap Res Gene PCR (NotDetected) blaNDM Car Res Gene PCR (NotDetected) OXA-48 Carbapenem Resis Gene (PCR) (NotDetected) blaVIM Car Res Gene PCR (NotDetected) CTX-M Gene Resistance (PCR) (NotDetected) Bld Cult ID Panel PCR (NotDetected) 02/16/24 02/16/24 02/15/24 Range/Units 07:49 05:21 21:28 WBC 26.18 H (4.8-10.8) K/ul RBC 3.54 L (4.20-5.40) M/uL Hgb 10.3 L (12.0-16.0) g/dl Hct 29.9 L (37.0-47.0) % MCV 84.5 (80.0-100.0) fL MCH 29.1 (25.0-34.0) pg MCHC 34.4 (32.0-36.0) g/dL RDW Std Deviation 41.8 (36.4-46.3) fL RDW Coeff of Ruben 13.5 (11.5-14.5) % Plt Count 131 (130-400) K/uL MPV 12.0 (9.4-12.4) fL Immature Gran % (Auto) 1.6 % Neut % (Auto) 89.2 % Lymph % (Auto) 2.4 % [place] % (Auto) 6.6 % Eos % (Auto) 0.0 % Baso % (Auto) 0.2 % Neut # (Auto) 23.32 H (1.40-6.50) K/uL Lymph # (Auto) 0.63 L (1.20-3.40) K/uL [place] # (Auto) 1.74 H (0.11-0.59) K/uL Eos # (Auto) 0.01 (0.00-0.50) K/uL Baso # (Auto) 0.06 (0.00-0.20) K/uL Immature Gran # (Auto) 0.42 H (0.01-0.20) K/uL Hyposegmented Neuts 1+ Polychromasia 1+ Sodium 139 (136-145) mmol/L Potassium 2.9 L (3.5-5.1) mmol/L Chloride 109 H (98-107) mmol/L Carbon Dioxide 23 (21-32) mmol/L Anion Gap 7 (3-11) BUN 41 H (6-23) mg/dl Creatinine 1.43 H D (0.6-1.2) mg/dl Est Cr Clr Drug Dosing 19.2 ml/min eGFR 35.06 BUN/Creatinine Ratio 28.7 H (10-20) Glucose 140 H (70-99(Fasting)) mg/dl POC Glucose 135 H 123 H (70-99) mg/dl Lactate (0.4-2.0) mmol/L Calcium 8.4 L (8.6-10.3) mg/dl Phosphorus 1.9 L (2.5-4.9) mg/dl Magnesium 2.3 (1.7-2.4) mg/dl Total Bilirubin 0.5 (0.2-1.0) mg/dl Direct Bilirubin (0-0.2) mg/dl AST 27 (13-39) U/L ALT 12 (7-52) U/L Alkaline Phosphatase 59 (34-104) U/L Troponin I High Sens 1813.3 H* D (0-14) pg/ml Total Protein 5.4 L (6.0-8.3) gm/dl Albumin 2.9 L (3.4-5.0) gm/dl Globulin 2.5 (2.5-4.0) gm/dl Albumin/Globulin Ratio 1.2 (0.9-2) Procalcitonin (0-0.5) ng/ml Urine Color Urine Appearance (Clear) Urine pH (4.5-7.5) Ur Specific [place] (1.000-1.030) Urine Protein (Negative) Urine Glucose (UA) (Negative) Urine Ketones (Negative) Urine Blood (Negative) Urine Nitrite (Negative) Urine Bilirubin (Negative) Urine Urobilinogen (Negative) Ur Leukocyte Esterase (Negative) Urine WBC (Auto) (0-5) /hpf Urine RBC (Auto) (0-2) /hpf U Hyaline Cast (Auto) (0-2) /lpf U Epithel Cells (Auto) (0-2) /hpf Urine Bacteria (Auto) (None Seen) Urine Yeast (None Prsent) Nasal Screen MRSA (PCR) (Negative) Adenovirus (PCR) (NotDetected) B. pertussis DNA (PCR) (NotDetected) B.parapertussis DNA PCR (NotDetected) C. pneumoniae DNA (PCR) (NotDetected) Coronavirus OC43 (PCR) (NotDetected) Coronavirus HKU1 (PCR) (NotDetected) Coronavirus 229E (PCR) (NotDetected) SARS-CoV-2 (PCR) (NotDetected) Coronavirus NL63 (PCR) (NotDetected) Enterobacterales (PCR) (NotDetected) Human Metapneumovir PCR (NotDetected) Influenza Type A (PCR) (NotDetected) Influenza Type B (PCR) (NotDetected) M. pneumoniae (PCR) (NotDetected) Parainfluenza 1 (PCR) (NotDetected) Parainfluenza 2 (PCR) (NotDetected) Parainfluenza 3 (PCR) (NotDetected) Parainfluenza 4 (PCR) (NotDetected) Proteus species (PCR) (NotDetected) RSV (PCR) (NotDetected) Entero/Rhino (PCR) (NotDetected) blaIMP Car res Gene PCR (NotDetected) KPC-Carbap Res Gene PCR (NotDetected) blaNDM Car Res Gene PCR (NotDetected) OXA-48 Carbapenem Resis Gene (PCR) (NotDetected) blaVIM Car Res Gene PCR (NotDetected) CTX-M Gene Resistance (PCR) (NotDetected) Bld Cult ID Panel PCR (NotDetected) 02/15/24 02/15/24 02/15/24 Range/Units 17:47 15:53 15:49 WBC (4.8-10.8) K/ul RBC (4.20-5.40) M/uL Hgb (12.0-16.0) g/dl Hct (37.0-47.0) % MCV (80.0-100.0) fL MCH (25.0-34.0) pg MCHC (32.0-36.0) g/dL RDW Std Deviation (36.4-46.3) fL RDW Coeff of Ruben (11.5-14.5) % Plt Count (130-400) K/uL MPV (9.4-12.4) fL Immature Gran % (Auto) % Neut % (Auto) % Lymph % (Auto) % [place] % (Auto) % Eos % (Auto) % Baso % (Auto) % Neut # (Auto) (1.40-6.50) K/uL Lymph # (Auto) (1.20-3.40) K/uL [place] # (Auto) (0.11-0.59) K/uL Eos # (Auto) (0.00-0.50) K/uL Baso # (Auto) (0.00-0.20) K/uL Immature Gran # (Auto) (0.01-0.20) K/uL Hyposegmented Neuts Polychromasia Sodium (136-145) mmol/L Potassium (3.5-5.1) mmol/L Chloride (98-107) mmol/L Carbon Dioxide (21-32) mmol/L Anion Gap (3-11) BUN (6-23) mg/dl Creatinine (0.6-1.2) mg/dl Est Cr Clr Drug Dosing ml/min eGFR BUN/Creatinine Ratio (10-20) Glucose (70-99(Fasting)) mg/dl POC Glucose (70-99) mg/dl Lactate 2.1 H* (0.4-2.0) mmol/L Calcium (8.6-10.3) mg/dl Phosphorus (2.5-4.9) mg/dl Magnesium (1.7-2.4) mg/dl Total Bilirubin (0.2-1.0) mg/dl Direct Bilirubin (0-0.2) mg/dl AST (13-39) U/L ALT (7-52) U/L Alkaline Phosphatase (34-104) U/L Troponin I High Sens 1159.7 H* (0-14) pg/ml Total Protein (6.0-8.3) gm/dl Albumin (3.4-5.0) gm/dl Globulin (2.5-4.0) gm/dl Albumin/Globulin Ratio (0.9-2) Procalcitonin (0-0.5) ng/ml Urine Color Yellow Urine Appearance Turbid A (Clear) Urine pH 7.0 (4.5-7.5) Ur Specific [place] 1.019 (1.000-1.030) Urine Protein 3+ H (Negative) Urine Glucose (UA) Negative (Negative) Urine Ketones Trace H (Negative) Urine Blood 3+ H (Negative) Urine Nitrite Negative (Negative) Urine Bilirubin Negative (Negative) Urine Urobilinogen Negative (Negative) Ur Leukocyte Esterase 3+ H (Negative) Urine WBC (Auto) >50 H (0-5) /hpf Urine RBC (Auto) 11-20 H (0-2) /hpf U Hyaline Cast (Auto) >20 H (0-2) /lpf U Epithel Cells (Auto) 0-2 (0-2) /hpf Urine Bacteria (Auto) 4+ H (None Seen) Urine Yeast Present A (None Prsent) Nasal Screen MRSA (PCR) (Negative) Adenovirus (PCR) Not Detected (NotDetected) B. pertussis DNA (PCR) Not Detected (NotDetected) B.parapertussis DNA PCR Not Detected (NotDetected) C. pneumoniae DNA (PCR) Not Detected (NotDetected) Coronavirus OC43 (PCR) Not Detected (NotDetected) Coronavirus HKU1 (PCR) Not Detected (NotDetected) Coronavirus 229E (PCR) Not Detected (NotDetected) SARS-CoV-2 (PCR) Not Detected (NotDetected) Coronavirus NL63 (PCR) Not Detected (NotDetected) Enterobacterales (PCR) (NotDetected) Human Metapneumovir PCR Not Detected (NotDetected) Influenza Type A (PCR) Not Detected (NotDetected) Influenza Type B (PCR) Not Detected (NotDetected) M. pneumoniae (PCR) Not Detected (NotDetected) Parainfluenza 1 (PCR) Not Detected (NotDetected) Parainfluenza 2 (PCR) Not Detected (NotDetected) Parainfluenza 3 (PCR) Not Detected (NotDetected) Parainfluenza 4 (PCR) Not Detected (NotDetected) Proteus species (PCR) (NotDetected) RSV (PCR) Not Detected (NotDetected) Entero/Rhino (PCR) Not Detected (NotDetected) blaIMP Car res Gene PCR (NotDetected) KPC-Carbap Res Gene PCR (NotDetected) blaNDM Car Res Gene PCR (NotDetected) OXA-48 Carbapenem Resis Gene (PCR) (NotDetected) blaVIM Car Res Gene PCR (NotDetected) CTX-M Gene Resistance (PCR) (NotDetected) Bld Cult ID Panel PCR (NotDetected) 02/15/24 Range/Units 15:17 WBC (4.8-10.8) K/ul RBC (4.20-5.40) M/uL Hgb (12.0-16.0) g/dl Hct (37.0-47.0) % MCV (80.0-100.0) fL MCH (25.0-34.0) pg MCHC (32.0-36.0) g/dL RDW Std Deviation (36.4-46.3) fL RDW Coeff of Ruben (11.5-14.5) % Plt Count (130-400) K/uL MPV (9.4-12.4) fL Immature Gran % (Auto) 1.7 % Neut % (Auto) 90.8 % Lymph % (Auto) 2.2 % [place] % (Auto) 5.1 % Eos % (Auto) 0.0 % Baso % (Auto) 0.2 % Neut # (Auto) 35.55 H (1.40-6.50) K/uL Lymph # (Auto) 0.85 L (1.20-3.40) K/uL [place] # (Auto) 1.98 H (0.11-0.59) K/uL Eos # (Auto) 0.01 (0.00-0.50) K/uL Baso # (Auto) 0.09 (0.00-0.20) K/uL Immature Gran # (Auto) 0.67 H (0.01-0.20) K/uL Hyposegmented Neuts Polychromasia Sodium 138 (136-145) mmol/L Potassium 3.5 (3.5-5.1) mmol/L Chloride 102 (98-107) mmol/L Carbon Dioxide 25 (21-32) mmol/L Anion Gap 11 (3-11) BUN 47 H (6-23) mg/dl Creatinine 2.39 H (0.6-1.2) mg/dl Est Cr Clr Drug Dosing 12.7 ml/min eGFR 18.93 BUN/Creatinine Ratio 19.7 (10-20) Glucose 226 H (70-99(Fasting)) mg/dl POC Glucose (70-99) mg/dl Lactate (0.4-2.0) mmol/L Calcium 9.2 (8.6-10.3) mg/dl Phosphorus (2.5-4.9) mg/dl Magnesium 1.6 L (1.7-2.4) mg/dl Total Bilirubin 0.5 (0.2-1.0) mg/dl Direct Bilirubin 0.1 (0-0.2) mg/dl AST 30 (13-39) U/L ALT 15 (7-52) U/L Alkaline Phosphatase 57 (34-104) U/L Troponin I High Sens 1301.1 H* (0-14) pg/ml Total Protein 6.5 (6.0-8.3) gm/dl Albumin 3.6 (3.4-5.0) gm/dl Globulin (2.5-4.0) gm/dl Albumin/Globulin Ratio (0.9-2) Procalcitonin 75.90 H (0-0.5) ng/ml Urine Color Urine Appearance (Clear) Urine pH (4.5-7.5) Ur Specific [place] (1.000-1.030) Urine Protein (Negative) Urine Glucose (UA) (Negative) Urine Ketones (Negative) Urine Blood (Negative) Urine Nitrite (Negative) Urine Bilirubin (Negative) Urine Urobilinogen (Negative) Ur Leukocyte Esterase (Negative) Urine WBC (Auto) (0-5) /hpf Urine RBC (Auto) (0-2) /hpf U Hyaline Cast (Auto) (0-2) /lpf U Epithel Cells (Auto) (0-2) /hpf Urine Bacteria (Auto) (None Seen) Urine Yeast (None Prsent) Nasal Screen MRSA (PCR) (Negative) Adenovirus (PCR) (NotDetected) B. pertussis DNA (PCR) (NotDetected) B.parapertussis DNA PCR (NotDetected) C. pneumoniae DNA (PCR) (NotDetected) Coronavirus OC43 (PCR) (NotDetected) Coronavirus HKU1 (PCR) (NotDetected) Coronavirus 229E (PCR) (NotDetected) SARS-CoV-2 (PCR) (NotDetected) Coronavirus NL63 (PCR) (NotDetected) Enterobacterales (PCR) DETECTED A (NotDetected) Human Metapneumovir PCR (NotDetected) Influenza Type A (PCR) (NotDetected) Influenza Type B (PCR) (NotDetected) M. pneumoniae (PCR) (NotDetected) Parainfluenza 1 (PCR) (NotDetected) Parainfluenza 2 (PCR) (NotDetected) Parainfluenza 3 (PCR) (NotDetected) Parainfluenza 4 (PCR) (NotDetected) Proteus species (PCR) DETECTED A (NotDetected) RSV (PCR) (NotDetected) Entero/Rhino (PCR) (NotDetected) blaIMP Car res Gene PCR Not Detected (NotDetected) KPC-Carbap Res Gene PCR Not Detected (NotDetected) blaNDM Car Res Gene PCR Not Detected (NotDetected) OXA-48 Carbapenem Resis Gene (PCR) Not Detected (NotDetected) blaVIM Car Res Gene PCR Not Detected (NotDetected) CTX-M Gene Resistance (PCR) Not Detected (NotDetected) Bld Cult ID Panel PCR See PCR Comment (NotDetected) Diagnostic Findings Chest X-Ray 02/15/24 14:30 XR chest 1V portable CLINICAL HISTORY: Sepsis. COMPARISON STUDY: Chest radiograph March 04, 2023. FINDINGS: An old, healed right humeral head fracture is incidentally noted. There is no pneumothorax or pleural effusion. Cardiomediastinal silhouette is stable. There is a small hiatal hernia. There is no consolidation to suggest pneumonia. Mild interstitial thickening is likely chronic. IMPRESSION: No acute cardiopulmonary findings. No significant change in appearance of the chest. ACT 112: Negative or not required by law. Electronically signed by: Devante Sims M.D. 02/15/2024 3:55 PM PG Care Time/CCT Total # of Minutes Spent Total Time Spent with Patient: Total time spent is greater than 50% in coordination of care (as documented) at patient's floor/unit and/or counseling patient: [place] [address] SUB INP/OBS CARE 2/35MIN Patient Type Established History Expanded Problem Focused Exam Expanded Problem Focused Medical Decision Making Moderate Complexity Diagnoses Sepsis A41.9 Urinary tract infection N39.0 Acute kidney injury N17.9 Dementia F03.90 Diabetes mellitus E11.9 Essential hypertension I10 Hypertension type: essential hypertension Elevated troponin R79.89 Hypokalemia E87.6 (6) HTN (hypertension) Hypertension type: essential hypertension Qualified Code(s): I10 - Essential (primary) hypertension
--- NOTE | 2024-02-16 17:05 | Communication Note ---
Date of Service: February 16, 2024 ELOISE Tamez notified me of high HR. EKG obtained showing Afib with RVR. Dr. Ceja and I at the bedside. BP recheck shows systolic in the low 100s. Digoxin ordered 250mg Q6 hours x 3 total doses. Notified RN. Daughter at the bedside and understands treatment plan. Discussed renal US to evaluate for potential causes of UTI with bacteremia. Daughter agreeable. RN to call with any issues/concerns.
[2024-02-16] MEDS: DIGOXIN 250 MCG in SYRINGE 9 ML IV SCH (17:31)
[2024-02-16] MEDS: DIGOXIN 250 MCG in SYRINGE 9 ML IV ONE (19:10)
--- NOTE | 2024-02-16 19:10 | Electrocardiogram Report ---
Test Reason : Blood Pressure : */* mmHG Vent. Rate : 107 BPM Atrial Rate : 107 BPM P-R Int : 154 ms QRS Dur : 68 ms QT Int : 310 ms P-R-T Axes : 58 20 43 degrees QTcB Int : 413 ms Sinus tachycardia Nonspecific T wave abnormality Low voltage QRS Abnormal ECG When compared with ECG of 04-Mar-2023 10:16, Premature supraventricular complexes are no longer Present Nonspecific T wave abnormality, worse in Inferior leads Nonspecific T wave abnormality, worse in Anterior leads Confirmed by Jessica Varghese (Annelise) on 02/16/2024 7:10:33 PM Referred By: REFERRED SELF Confirmed By: Jessica Varghese
--- NOTE | 2024-02-16 19:46 | Electrocardiogram Report ---
Test Reason : Blood Pressure : */* mmHG Vent. Rate : 107 BPM Atrial Rate : 107 BPM P-R Int : 144 ms QRS Dur : 72 ms QT Int : 290 ms P-R-T Axes : 151 -19 165 degrees QTcB Int : 387 ms Normal sinus rhythm with sinus arrhythmia Low voltage QRS Septal infarct , age undetermined Abnormal ECG When compared with ECG of 15-Feb-2024 15:42, (unconfirmed) Ectopic atrial rhythm has replaced Sinus rhythm Septal infarct is now Present voltage has decreased Confirmed by Jessica Varghese (Annelise) on 02/16/2024 7:45:57 PM Referred By: REFERRED SELF Confirmed By: Jessica Varghese
[2024-02-16] MEDS: LACTATED RINGER'S 1,000 ML IV SCH (23:21)
[2024-02-17 05:16] LABS: Basophils # (auto) 0.04 K/uL (0.00-0.20); Basophils % (auto) 0.2 %; Eosinophils # (auto) 0.06 K/uL (0.00-0.50); Eosinophils % (auto) 0.3 %; Hematocrit (blood only) 31.7 % (37.0-47.0); Hemoglobin 10.4 g/dl (12.0-16.0); Immature Granulocytes # (auto) 0.15 K/uL (0.01-0.20); Immature Granulocytes % (auto) 0.7 %; Lymphocytes # (auto) 0.93 K/uL (1.20-3.40); Lymphocytes % (auto) 4.6 %; Mean Corpuscular Hemoglobin 28.3 pg (25.0-34.0); Mean Corpuscular Hgb Conc 32.8 g/dL (32.0-36.0); Mean Corpuscular Volume 86.1 fL (80.0-100.0); Mean Platelet Volume 12.3 fL (9.4-12.4); Monocytes # (auto) 1.16 K/uL (0.11-0.59); Monocytes % (auto) 5.7 %; Neutrophils % (auto) 88.5 %; Platelet Count 108 K/uL (130-400); RDW Coefficient of Variation 13.5 % (11.5-14.5); RDW Standard Deviation 42.8 fL (36.4-46.3); Red Blood Count 3.68 M/uL (4.20-5.40); White Blood Count 20.24 K/ul (4.8-10.8)
[2024-02-17 05:31] LABS: Albumin Level 2.7 gm/dl (3.4-5.0); BUN Creatinine Ratio 28.4 (10-20); Bilirubin,Total 0.6 mg/dl (0.2-1.0); Calcium 8.4 mg/dl (8.6-10.3); Creatinine Clr Calc Pharmacy 28.8 ml/min; Globulin 2.7 gm/dl (2.5-4.0); Potassium 4.1 mmol/L (3.5-5.1); Total Protein 5.4 gm/dl (6.0-8.3)
--- NOTE | 2024-02-17 14:32 | Hospitalist Progress Note ---
<Statement entered by Aundrea Ceja MD - 02/17/24 15:32> I have reviewed vital signs, chart notes, labs and imaging. I have personally seen, evaluated and examined the patient. I have also discussed the management of the patient with the EDER and I agree with the exam findings documented in the history and physical examination and the documented assessment and plan unless otherwise stated below. Moon is definitely more alert today her family at bedsidedaughter and 2 sons report that she has been eating and drinking milk today, she is not talking but she never usually does. She was feisty with my attempt to examine her lungs are clear anteriorly and abdomen is soft and nontender sepsis is resolving, Proteus bacteremia reviewed sensitivity panel changed ant ibiotics to ceftriaxone. Will obtain renal ultrasound since she does have a history of nephrolithiasis she would not be a candidate for procedural intervention based on her previously stated wishes however this information may change the duration of our antibiotic course. I also discussed her atrial fibrillation with her family she had a temporary episode during sepsis and has been in normal sinus rhythm since last night most likely we will not start anticoagulation because of the overall palliative focus of her care. we will stop her IV fluids and see how she does orally hydrating in the next 24 hours Date of Service February 17, 2024 Assessment & Plan (1) Sepsis: Plan: SIRS. Blood cultures showing Enterobacter and Proteus. Currently on Cefepime which will cover. Prelim urine cultures positive for proteus. - Admit PCU - BP stable. - WBC 39.15 --> 26.18 - Cr 2.39 -->1.09 --> 0.95 - Troponin 1301.1 -->1813-->1516, EKG without ischemic changes. - Switch to Ceftriaxone for more narrow coverage. - CBC, BMP a.m. - D/C LR and push oral fluid intake if able. (2) Urinary tract infection: Plan: UA with signs of infection (as above) - Unable to express symptomatology 2/2 dementia - No reported h/o pseudomonas - No CTAP at this time - Rocephin 2G Q24 hours (3) Acute kidney injury: Plan: Baseline creatinine 0.7-0.9 - Cr at admission 2.39-->1.43-->1.09 -->0.95, BUN 47-->34-->28.4 - Push oral fluid intake - BMP a.m. (4) Dementia: Plan: Resides at [facility] - Continue donepezil - Ancillary therapy: Increase familiarity of setting as able + promote good sleep hygiene (melatonin) (5) Diabetes mellitus: Plan: T2DM, insulin reuben - On metformin 500 mg daily at home - A1c 6.2% (06/07) - SSI with target BSG range 120-160 mg/dL, CF 30, carb ratio 10 - BG ACHS - Adjust regimen as needed (6) HTN (hypertension): Plan: - Metoprolol tartrate 25 mg daily - currently on hold for BP, but can evaluate restarting for rate control if BP stabilizes. - HCTZ 50 mg daily; Hold 2/2 CLARKE (7) Elevated troponin: Plan: - Currently on clopidogrel, metoprolol and simvastatin. Further workup would not significantly change treatment plan. Troponin trending down. (8) Hypokalemia: Plan: Given 3 runs of 10meq plus potassium phosphate. K 3.5->2.9->3.9 Mag corrected 1.6->2.3 BMP tomorrow Plan HLD- Simvastatin 40 mg RLS- Ropinirole 0.5 mg - On plavix 75mg Not for escalation of care to vasopressors; DNR/DNI. Daughter kofi SALGADO paperwork with her. VTE Prophylaxis: SCDs Code: DNR/DNI Admission and Anticipated Discharge Date Admission Date: February 15, 2024 Marcelina Mustafa is a 88-year-old female who presented to the ER from [facility] secondary to ongoing fever and a recent fall out of her chair on 02/14. Vitals were found to be hypotensive but tachycardic when EMS arrived. ED course: WBC 39.15 with left shift (35.55), H&H 11.8/35.6, lymphs 0.85, monocytes 1.98, immature granulocytes 0.67; CMP-BUN 47, creatinine 2.39, glucose 226; lactate 4.4; magnesium 1.6; troponin 1301.1; procalcitonin 75.9; UA shows turbid urine, 3+ protein, trace ketones, 3+ blood, 3+ leukocyte esterase, > 50 WBC, 11-20 RBC, > 20 hyaline cast, 4+ bacteria, presence of yeast; BioFire negative; Chest x-ray without acute findings, head CT without acute findings; EKG showing no ST elevation or depression. Today, Moon is resting comfortably in bed. Her sons are at the bedside. Moon is demented. She denies any pain. Nurse reports that she was incontinent of urine earlier this AM. Last night, Moon received Digoxin for Afib with RVR. Patient now in sinus rhythm. Nurse reports Moon is taking sips of water, but not eating anything. Urinary Culture final result shows proteus mirabilis. Review of Systems Review of Systems: Pt is poor historian due to dementia Constitutional: no fever and no chills Respiratory: no cough and no dyspnea Cardiovascular: no chest pain Gastrointestinal: no abdominal pain Neurologic: + confusion Physical Exam Eyes: PERRL, conjunctivae normal, anicteric sclerae Neck: normal visual inspection Respiratory: normal respiratory effort, lungs clear to auscultation Cardiovascular: Rate/Rhythm: regular rhythm and + tachycardic Extremities: no edema Gastrointestinal (Abdomen): Inspection/Auscultation: abdomen normal to inspection Percussion/Palpation: abdomen soft; abdomen nontender Psychiatric: Orientation: + not oriented x 3 Results & Data Results & Data Vital Signs (Past 12 Hours) Vital Signs Temp Pulse Pulse Resp BP Pulse Ox O2 Del Method 02/17/24 13:35 89 02/17/24 11:29 37.4 C 96 H 15 131/56 L 97 Room Air 02/17/24 10:23 37.3 C 02/17/24 07:45 Room Air 02/17/24 07:45 74 02/17/24 07:25 36.5 C 89 19 119/65 97 Room Air 02/17/24 05:14 99 H 02/17/24 03:20 37.1 C 91 H 19 98/55 L 96 Room Air PG Care Time/CCT Total # of Minutes Spent Total Time Spent with Patient: Total time spent is greater than 50% in coordination of care (as documented) at patient's floor/unit and/or counseling patient: Coding [place] [address] SUB INP/OBS CARE 2/35MIN Patient Type Established History Expanded Problem Focused Exam Expanded Problem Focused Medical Decision Making Moderate Complexity Diagnoses Sepsis A41.9 Urinary tract infection N39.0 Acute kidney injury N17.9 Dementia F03.90 Diabetes mellitus E11.9 Essential hypertension I10 Hypertension type: essential hypertension Elevated troponin R79.89 Hypokalemia E87.6 (6) HTN (hypertension) Hypertension type: essential hypertension Qualified Code(s): I10 - Essential (primary) hypertension
[2024-02-17] MEDS: cefTRIAXone SODIUM 2,000 MG/50 ML BAG IV SCH (14:57)
--- NOTE | 2024-02-17 17:29 | Electrocardiogram Report ---
Test Reason : Blood Pressure : */* mmHG Vent. Rate : 151 BPM Atrial Rate : 174 BPM P-R Int : * ms QRS Dur : 68 ms QT Int : 236 ms P-R-T Axes : * 31 -18 degrees QTcB Int : 374 ms Atrial fibrillation with rapid ventricular response Nonspecific ST and T wave abnormality Abnormal ECG When compared with ECG of 16-Feb-2024 06:53, Atrial fibrillation has replaced Ectopic atrial rhythm Criteria for Septal infarct are no longer Present Confirmed by Jessica Varghese (Annelise) on 02/17/2024 5:29:18 PM Referred By: REFERRED SELF Confirmed By: Jessica Varghese
--- NOTE | 2024-02-18 09:09 | Ultrasound Report ---
RENAL ULTRASOUND CLINICAL HISTORY: sepsis, bacteremia, UTI COMPARISON STUDY: None. TECHNIQUE: Sonography of the kidneys and the urinary bladder was performed. FINDINGS: Both kidneys measure 11 cm in maximal sagittal dimension. There is no right hydronephrosis. There is mild left hydronephrosis. No renal mass is identified. No definite calculi are identified. Ureteral jets were not visualized. Bladder is otherwise unremarkable. IMPRESSION: 1. Mild left hydronephrosis. 2. No right hydronephrosis. ACT 112: Negative or not required by law. Electronically signed by: Devante Sims M.D. 02/18/2024 9:08 AM
--- NOTE | 2024-02-18 17:12 | Hospitalist Progress Note ---
Date of Service February 18, 2024 Assessment & Plan (1) Sepsis: Plan: severe sepsis present on admission from Proteus bacteremia caused by urinary tract infection. She had fluid responsive hypotension on admission that resolved within 24 hours. acute kidney injury due to sepsis, acute metabolic encephalopathy, troponin elevation due to myocardial demand ischemia all due to sepsis and resolved. Repeat blood cultures not obtained because of low risk gram-negative bacteremia from urinary source renal ultrasound completed today no stones or urinary obstructions does have mild left-sided hydronephrosis. according to her family she does have extensive history of nephrolithiasis in the past, I presume this is sequela of that initially treated with cefepime narrowed to ceftriaxone in 02/16 discussed with antimicrobial stewardship pharmacist/IDfor simple UTI and low risk gram-negative bacteremia duration would be 7 days, which is 14 days for complicated. She is in between because of the mild hydronephrosis so we will settle in 10 days of total antibiotic therapy. She is suitable for change to high dose of augmentin at discharge a 875 mg p.o. 3 times daily to complete the duration as I discussed with AMS A.m. CBC and BMP (2) Urinary tract infection: Plan: see above (3) Acute kidney injury: Plan: resolved Baseline creatinine 0.7-0.9 - Cr at admission 2.39-->1.43-->1.09 -->0.95 (4) Dementia: Plan: Resides at [facility] - Continue donepezil - Ancillary therapy: Increase familiarity of setting as able + promote good sleep hygiene (melatonin) (5) Diabetes mellitus: Plan: T2DM, insulin reuben - On metformin 500 mg daily at home - A1c 6.2% (06/07) - SSI with target BSG range 120-160 mg/dL, CF 30, carb ratio 10 - BG ACHS - Adjust regimen as needed (6) HTN (hypertension): Plan: resume metoprolol, hydrochlorothiazide held because of CLARKE and sepsis (7) Elevated troponin: Plan: continue clopidogrel, metoprolol and simvastatin. elevated troponin related to myocardial demand ischemia, no evidence of acute coronary syndrome (8) Hypokalemia: Plan: hypokalemia and hypomagnesemia were replaced and corrected Plan HLD- Simvastatin 40 mg RLS- Ropinirole 0.5 mg DVT prophylaxisshe is on Plavix we have deferred chemoprophylaxis because of her goals of care and she is likely to be combative with subcutaneous injections, continue SCDs goals of careDNR/DNI, limited interventions, no invasive procedures or ICU level care. Moon had clearly stated these wishes in the past and has advanced directive, she currently has severe dementia and her family respects her wishes. we also discussed the options of POLST and do not transport orders where she to develop another severe infection I updated her family at bedside on 2 visits today, both sons were present this morning and her daughter was present this afternoon, we discussed the plan of care and discharge to [facility], where she is a resident, tomorrow Admission and Anticipated Discharge Date Admission Date: February 15, 2024 Subjective Moon is awake nonverbal, she tends to talk very little at baseline per her family she has been eating well and drinking well the last 24 hours she is now taking oral medications and took her Plavix this morning Physical Exam 2 Physical Exam: PHYSICAL EXAMINATION Last 24h vital signs reviewed, see documentation in flowsheet General: comfortable appearing, no distress, frail elderly woman lying in bed HEENT: Normocephalic, atraumatic, pupils round and equal, sclerae anicteric, no conjunctival injection, moist mucus membranes Lungs: Normal respiratory effort. Clear to auscultation bilaterally. No RRW Heart: Regular rate and rhythm, no murmurs. No JVD Abdomen: Soft, nontender, nondistended. Bowel sounds present. Extremities: Warm, dry, well-perfused. No extremity edema. Neuro: Alert and oriented x 1, face symmetric, moves 4 extremities well. did not make any verbal statements or follow commands for me Psych: Normal affect and behavior Results & Data Results & Data Vital Signs (Past 12 Hours) Vital Signs Temp Pulse Pulse Resp BP Pulse Ox O2 Del Method 02/18/24 15:46 36.7 C 91 H 18 130/70 94 Room Air 02/18/24 15:14 84 02/18/24 10:58 37.4 C 93 H 18 127/74 94 Room Air 02/18/24 08:20 Room Air 02/18/24 08:19 89 02/18/24 07:23 37.4 C 97 H 18 150/77 H 93 Room Air Laboratory Results 02/17/24 04:56 02/17/24 04:56 PG Care Time/CCT Total # of Minutes Spent Total Time Spent with Patient: I personally spent: 55 minutes today on clinical care activities including: reviewing chart notes and vital signs reviewing studies discussion with investment consultant(s) - antimicrobial stewardship discussion with animal care assistant examining the patient counseling the patient's family writing orders writing discharge instructions and orders documentation Coding Level of Care Code 73751 SUB INP/OBS CARE 3/50MIN Diagnoses Sepsis A41.9 Urinary tract infection N39.0 Acute kidney injury N17.9 Dementia F03.90 Diabetes mellitus E11.9 Essential hypertension I10 Hypertension type: essential hypertension Elevated troponin R79.89 Hypokalemia E87.6 (6) HTN (hypertension) Hypertension type: essential hypertension Qualified Code(s): I10 - Essential (primary) hypertension
[2024-02-18] MEDS: METOPROLOL TARTRATE 25 MG TAB PO SCH (21:24)
[2024-02-19 06:11] LABS: Hematocrit (blood only) 29.1 % (37.0-47.0); Hemoglobin 9.7 g/dl (12.0-16.0); Mean Corpuscular Hgb Conc 33.3 g/dL (32.0-36.0); Mean Corpuscular Volume 83.9 fL (80.0-100.0); Mean Platelet Volume 12.1 fL (9.4-12.4); Platelet Count 110 K/uL (130-400); RDW Coefficient of Variation 13.5 % (11.5-14.5); RDW Standard Deviation 41.1 fL (36.4-46.3); Red Blood Count 3.47 M/uL (4.20-5.40); White Blood Count 10.08 K/ul (4.8-10.8)
[2024-02-19 06:34] LABS: BUN Creatinine Ratio 25.3 (10-20); Calcium 8.6 mg/dl (8.6-10.3); Creatinine Clr Calc Pharmacy 36.6 ml/min; Potassium 3.4 mmol/L (3.5-5.1)
[2024-02-19] MEDS: POTASSIUM CHLORIDE CRTAB 20 MEQ TABCR PO SCH (08:18)
--- NOTE | 2024-02-19 13:58 | CT Scan Report ---
ABDOMEN AND PELVIS CT WITHOUT CONTRAST CT DOSE: 835.52 mGy.cm HISTORY: Acute left-sided flank pain L hydronephrosis, bacteremia; eval stones TECHNIQUE: Multiaxial CT images of the abdomen and pelvis were performed without contrast. A dose lo wering technique was utilized adhering to the principles of ALARA. COMPARISON STUDY: Renal ultrasound 02/18/2024 FINDINGS: Cardiomegaly. Moderate layering pleural effusions with dependent bibasilar atelectasis. Int ralobular septal thickening may represent interstitial pulmonary edema. Limited exam secondary to marciano roximately positioning, lack of contrast and respiratory motion artifact. No pneumoperitoneum. The un enhanced spleen, moderately atrophic pancreas, contracted gallbladder and adrenal glands are unremark able. Unremarkable liver. 5 mm calculus in the distal left ureter, 2 cm upstream to the ureterovesicular junction. Minimal left -sided hydroureteronephrosis. 4 mm nonobstructing calculus at the inferior pole right kidney. No righ t-sided hydronephrosis. Mild bladder wall thickening. Atherosclerosis of the aorta. No lymphadenopath y. Distal esophageal wall thickening with small hiatal hernia. No bowel obstruction. Trace ascites. Mode rate colonic fecal retention. Noninflamed appendix. Body wall edema. No acute fracture identified. De generative changes of the spine, pelvis and hips. IMPRESSION: 1. 5 mm distal left ureteral calculus with minimal left-sided hydronephrosis. 2. Right nephrolithiasis. 3. No bowel obstruction or bowel wall thickening. 4. Interstitial pulmonary edema, moderate layering pleural effusions with anasarca and trace ascites. 5. Small hiatal hernia with mild distal esophageal wall thickening. ACT 112: Negative or not required by law. The above report was generated using voice recognition software. It may contain grammatical, syntax o r spelling errors. Electronically signed by: Hill Patton M.D. 02/19/2024 1:57 PM
--- NOTE | 2024-02-19 15:23 | Hospitalist Progress Note ---
Date of Service February 19, 2024 Assessment & Plan (1) Calculus of distal left ureter: Plan: CT a/p today completed due to low-grade fever this am, recent renal u/s with left sided hydronephrosis, and previous h/o kidney stone CT indeed shows a distal 5mm left-sided ureteral stone with mild hydronephrosis counseled pt's children regarding this, chances of spontaneous passage, etc. discussed that the stone was likely a big cause of her UTI/bacteremia will consult urology and go from there cont IV abx (2) Bacteremia: Plan: 2nd to proteus UTI cont rocephin IV day #5 of IV abx potentially could transition to PO augmentin at discharge but hold off for now due to #1 and ongoing low-grade temps (3) Sepsis: Plan: severe sepsis/bacteremia 2nd proteus hemodynamically stable but with low-grade temp this am see #1, #2 above (4) Urinary tract infection: Plan: see above discussion complicated, due to obstructing left-sided renal stone 5mm (5) Acute kidney injury: Plan: Cr at admission 2.39 now < 1 resolved 2nd to severe sepsis/bacteremia 2nd to obstructing renal stone (6) Dementia: Plan: advanced Continue donepezil (7) Diabetes mellitus: Plan: On metformin 500 mg daily at home BSGs controlled at this time with novolog SSI previous a1c was <6.5% (8) HTN (hypertension): Plan: cont metoprolol cont to hold HCTZ (9) Elevated troponin: Plan: continue clopidogrel, metoprolol and simvastatin. elevated troponin related to myocardial demand ischemia, no evidence of acute coronary syndrome (10) Hypokalemia: Plan: repleted resolved (11) Acute metabolic encephalopathy: Plan: 2nd to sepsis/UTI improved Plan HLD- cont Simvastatin 40 mg RLS- cont Ropinirole 0.5 mg family updated at bedside extensively before & after CT a/p results they had opportunity to meet with urology as well urology making NPO after MN tonight for possible stent, if family wishes to pursue strain all urine Admission and Anticipated Discharge Date Admission Date: February 15, 2024 Subjective no events overnight patient ate fair breakfast patient pleasantly confused son/daughter at bedside they report their mother is not fully back to baseline but is much improved on grand scale in comparison to admission we discussed getting CT scan of a/p to r/o kidney stones daughter reports their mother had kidney stones years ago Review of Systems Review of Systems: Unobtainable due to cognitive status Physical Exam Physical Exam: gen - pleasantly confused, NAD neck - no JVD mouth - MMM heart - RRR, s1 s2, 1/6 systolic murmur RUSB lungs - CTA b/l abd - soft NT ND BS+ ext - no edema, pulses 2+ b/l Results & Data Results & Data Vital Signs (Past 12 Hours) Vital Signs Temp Pulse Pulse Resp BP Pulse Ox O2 Del Method 02/19/24 14:18 76 02/19/24 11:15 36.4 C L 73 19 107/64 94 Room Air 02/19/24 08:52 Room Air 02/19/24 08:02 37.6 C H 87 19 123/70 95 Room Air 02/19/24 07:17 88 02/19/24 03:26 36.5 C 83 18 133/62 92 Room Air Laboratory Results Laboratory Results - last 24 hr 02/18/24 02/18/24 02/19/24 17:02 20:35 05:36 WBC 10.08 RBC 3.47 L Hgb 9.7 L Hct 29.1 L MCV 83.9 MCH 28.0 MCHC 33.3 RDW Std Deviation 41.1 RDW Coeff of Ruben 13.5 Plt Count 110 L MPV 12.1 Sodium 135 L Potassium 3.4 L Chloride 104 Carbon Dioxide 24 Anion Gap 7 BUN 21 Creatinine 0.83 Est Cr Clr Drug Dosing 36.6 eGFR 67.34 BUN/Creatinine Ratio 25.3 H Glucose 114 H POC Glucose 137 H 193 H Calcium 8.6 02/19/24 02/19/24 07:57 12:03 WBC RBC Hgb Hct MCV MCH MCHC RDW Std Deviation RDW Coeff of Ruben Plt Count MPV Sodium Potassium Chloride Carbon Dioxide Anion Gap BUN Creatinine Est Cr Clr Drug Dosing eGFR BUN/Creatinine Ratio Glucose POC Glucose 120 H 146 H Calcium PG Care Time/CCT Total # of Minutes Spent Total Time Spent with Patient: Total time spent is greater than 50% in coordination of care (as documented) at patient's floor/unit and/or counseling patient: Coding Level of Care Code 34193 SUB INP/OBS CARE 3/50MIN Diagnoses Calculus of distal left ureter N20.1 Bacteremia R78.81 Sepsis A41.9 Urinary tract infection N39.0 Acute kidney injury N17.9 Dementia F03.90 Diabetes mellitus E11.9 Essential hypertension I10 Hypertension type: essential hypertension Elevated troponin R79.89 Hypokalemia E87.6 Acute metabolic encephalopathy G93.41 (8) HTN (hypertension) Hypertension type: essential hypertension Qualified Code(s): I10 - Essential (primary) hypertension
--- NOTE | 2024-02-19 16:16 | Urology Consultation ---
Date of Consultation February 19, 2024 Assessment & Plan (1) Urinary tract infection: (2) Sepsis: (3) Calculus of distal left ureter: 88-year-old female admitted for severe sepsis, UTI/bacteremia. Urology is consulted for left ureteral stone Patient is currently afebrile, hemodynamically stable Labs todaycreatinine 0.83, WBC 10.08, hemoglobin 9.7 Urine and blood cultures with Proteus mirabilis Patient initially on cefepime and transitioned to ceftriaxone CT abdomen and pelvis today noted mild left hydronephrosis secondary to a 5 mm left distal ureteral calculus Reviewed and discussed findings with patient's family at bedside Discussed option for cystoscopy and left ureteral stent placement due to stone and infection depending on their goals of care We discussed that a 5 mm ureteral stone has a decent probability of passing spontaneously She seems to be improving/stable with antibiotics/conservative management However, we also discussed that she may have difficulty clearing infection due to obstructing stone Discussed risks of procedure including risk of anesthesia with her age and oneil rbidities After discussion, no acute intervention at this time Will make her NPO at midnight to revisit discussion of ureteral stent tomorrow Continue supportive care, antibiotics and medical management per hospital medicine team will follow History of Present Illness Reason for Consultation: Dr. Roach Attending Physician: rFitz Roach MD History of Present Illness This is an 88-year-old female with past medical history of dementia, type 2 diabetes, and hypertension who presented [facility] ED via [facility] evaluation of hypotension, tachycardia and fever. Lab work on arrival showed creatinine 2.39, WBC 39.15, hemoglobin 11.8, lactate 4.4, troponin 1301.1. Urinalysis showed 3+ blood, 3+ LE, >50 WBC, 11-20 RBC, 4+ bacteria and yeast present. Urine and blood cultures collected. She was started on IV fluids and cefepime. She was admitted for severe sepsis with suspected urinary source. Urology is consulted today for left ureteral calculus, recent bacteremia/UTI. Chart review: Labs todaycreatinine 0.83, WBC 10.08, hemoglobin 9.7 Urine culture with Proteus mirabilis Blood cultures with Proteus mirabilis Patiently initially treated with cefepime, narrowed to ceftriaxone on 02/16 Renal ultrasound 11/4 showed mild left sided hydronephrosis CT A/P 02/18, demonstrates a 5 mm distal left ureteral calculus with minimal left-sided hydronephrosis, right nephrolithiasis Patient seen and examined at bedside this afternoon. Patient is awake, nonverbal. ROS unobtainable due to cognitive status. Patient's son and daughter present in the room and help provide some history. Patient is voiding, incontinent. Patient has history of kidney stones approximately 30 years ago. Allergies Allergy/AdvReac Type Severity Reaction Status Date / Time gabapentin Allergy Verified 06/06/23 13:32 Home Medications Medication Instructions Recorded Confirmed Type cholecalciferol (vitamin D3) 25 1,000 units PO DAILY 01/18/19 02/15/24 History mcg (1,000 unit) capsule donepezil 10 mg tablet 10 mg PO HS 01/18/19 02/15/24 History omega-3 fatty acids 1,000 mg 2,000 mg PO DAILY 01/18/19 02/15/24 History capsule (Fish Oil Concentrate) metoprolol tartrate 25 mg tablet 12.5 mg (1/2 x 25 mg) PO BID #90 05/21/19 02/15/24 Rx tabs ropinirole 0.5 mg tablet 0.5 mg PO HS #90 tabs 05/21/19 02/15/24 Rx cyanocobalamin (vitamin B-12) 1,000 mcg PO DAILY #30 caps 08/11/20 02/15/24 Rx 1,000 mcg capsule clopidogrel 75 mg tablet (Plavix) 75 mg PO DAILY #30 tabs 03/30/21 02/15/24 Rx metformin 500 mg 24 hr 500 mg PO DAILY #90 tabs 08/10/22 02/15/24 Rx tablet,extended release (gastric retention) simvastatin 40 mg tablet 40 mg PO HS #90 tabs 08/10/22 02/15/24 Rx acetaminophen 500 mg capsule 500 mg PO Q8H PRN fever / fever 03/05/23 02/15/24 Rx #90 caps potassium chloride 20 mEq 40 meq PO DAILY 06/06/23 02/15/24 History tablet,extended release(part/cryst) (Klor-Con M) amoxicillin 875 mg-potassium 1 tab PO Q8H #20 tabs 02/18/24 Rx clavulanate 125 mg tablet Patient History Medical History (Updated 02/19/24 @ 16:20 by RICHARD Rajan) Stroke Surgical History History of total abdominal hysterectomy and bilateral salpingo-oophorectomy History of tonsillectomy Family History Son No problems noted. Sister Breast cancer Diabetes Mother Dementia Denies family history of Ovarian cancer Prostate cancer Myocardial infarction Colorectal cancer Social History Smoking Status: Unknown if ever smoked Second Hand Exposure: No; Do You Dip or Chew Tobacco: No; Hx Alcohol Use: No Hx Substance Use: No Preferred Language: Lao Communication Ability: Unable Visual Impairment: No Limitations Hearing Ability: Use of Hearing Aid Line Crew Supervisor Required: No Beliefs That Will Affect Care: None marital status: Current Living Situation: Group Home Current Living Situation Comment: [facility] current occupational status: retired Other Information That Helps Us Care for You: No Feels Safe at Home: Yes Diet: regular Diet Comment: regular caffeine: Yes during the past year weight has: remained stable Dental Care, Regularly: No Physical Activity Frequency: Does not Exercise Seatbelt Use: always Sunscreen Use: Yes Review of Systems Review of Systems: Unobtainable due to cognitive status Physical Exam Constitutional: no acute distress Respiratory: normal respiratory effort; no respiratory distress and no labored breathing Gastrointestinal (Abdomen): Inspection/Auscultation: abdomen normal to inspec tion Musculoskeletal: Head/Neck/Chest: normocephalic Neurologic: moves all extremities and awake Psychiatric: Orientation: alert and cooperative Results & Data Vital Signs (Past 12 Hours) Vital Signs Temp Pulse Pulse Resp BP Pulse Ox O2 Del Method 02/19/24 14:18 76 02/19/24 11:15 36.4 C L 73 19 107/64 94 Room Air 02/19/24 08:52 Room Air 02/19/24 08:02 37.6 C H 87 19 123/70 95 Room Air 02/19/24 07:17 88 PG Care Time/CCT Total # of Minutes Spent Total Time Spent with Patient: Total time spent is greater than 50% in coordination of care (as documented) at patient's floor/unit and/or counseling patient: Coding Level of Care Code 75065 INT INP/OBS CARE MIN Diagnoses Urinary tract infection N39.0 Sepsis A41.9 Calculus of distal left ureter N20.1
[2024-02-19] MEDS: PANTOprazole 40 MG TAB PO SCH (16:55)
--- NOTE | 2024-02-20 09:04 | Urology Progress Note ---
Date of Service February 20, 2024 Assessment & Plan (1) Calculus of distal left ureter: (2) Urinary tract infection: (3) Bacteremia: Plan: Follow-up of left distal ureteral stone, UTI/bacteremia Patient febrile this am (38.0), hemodynamically stable No new labs at time of visit Urine and blood cultures with Proteus mirabilis Patient initially on cefepime and transitioned to ceftriaxone CT A/P 02/18 demonstrates mild left hydronephrosis secondary to a 5 mm left distal ureteral calculus Discussed option for cystoscopy and left ureteral stent placement due to stone and infection depending on their goals of care She has significantly improved with conservative management and antibiotics, but still having intermittent low grade fevers We discussed that she may have difficulty clearing infection due to presence of obstructing stone After discussion, they would like to proceed with left ureteral stent placement today, daughter at bedside is POA Proceed to OR for cystoscopy and left ureteral stent placement with Dr. Lang Risks and benefits of procedure to be reviewed with patient/family by Dr. Lang Keep NPO for procedure Continue supportive care, antibiotics and medical management per hospital medicine team Admission and Anticipated Discharge Date Admission Date: February 15, 2024 Supervising Physician Co-Signing Physician Notes Discussed patient with EDER. Agree with plan. Family would like to proceed with stent placement. Risks and benefits discussed. Will proceed to cystoscopy, left retrograde pyelogram and left ureteral stent placement. Consent obtained from family. Patient marked. Subjective Patient seen and examined at bedside this morning. Family present, including son and daughter. No acute issues overnight. Patient is sleeping in bed. Febrile this morning. Review of Systems Review of Systems: Unobtainable due to cognitive status Physical Exam Physical Exam: patient sleeping in bed, NAD Respiratory: normal respiratory effort; no respiratory distress and no labored breathing Musculoskeletal: Head/Neck/Chest: normocephalic Results & Data Vital Signs (Past 12 Hours) Vital Signs Temp Pulse Pulse Resp BP BP Pulse Ox 02/20/24 07:57 38.0 C H 81 18 121/59 L 91 02/20/24 07:53 75 02/19/24 23:00 36.4 C L 89 16 138/65 93 02/19/24 22:05 83 O2 Del Method 02/20/24 07:57 Room Air 02/20/24 07:53 02/19/24 23:00 Room Air 02/19/24 22:05 PG Care Time/CCT Total # of Minutes Spent Total Time Spent with Patient: Total time spent is greater than 50% in coordination of care (as documented) at patient's floor/unit and/or counseling patient: Coding Level of Care Code 77766 SUB INP/OBS CARE 2/35MIN Diagnoses Calculus of distal left ureter N20.1 Urinary tract infection N39.0 Bacteremia R78.81
[2024-02-20] MEDS: ACETAMINOPHEN 500 MG TAB PO PRN (09:07)
[2024-02-20 09:22] LABS: Hematocrit (blood only) 27.2 % (37.0-47.0); Hemoglobin 9.2 g/dl (12.0-16.0); Mean Corpuscular Hemoglobin 28.4 pg (25.0-34.0); Mean Corpuscular Hgb Conc 33.8 g/dL (32.0-36.0); Mean Platelet Volume 11.5 fL (9.4-12.4); Platelet Count 134 K/uL (130-400); RDW Coefficient of Variation 13.2 % (11.5-14.5); Red Blood Count 3.24 M/uL (4.20-5.40); White Blood Count 10.64 K/ul (4.8-10.8)
[2024-02-20 09:41] LABS: BUN Creatinine Ratio 17.8 (10-20); Calcium 8.5 mg/dl (8.6-10.3); Creatinine Clr Calc Pharmacy 41.4 ml/min; Magnesium 1.7 mg/dl (1.7-2.4); Potassium 3.7 mmol/L (3.5-5.1)
--- NOTE | 2024-02-20 10:10 | Anesthesiology Consultation ---
Date of Service February 20, 2024 Assessment & Plan Chart Review Chart Review: Acceptable Risk for Surgery and Patient NOT seen in Pre Admission Testing History Surgery Operation Date: 02/20/24 07:00 Proposed Procedures p Cystoscopy, Left Ureteral Stent Placement - Estevan Lang MD Height/Weight Height: 5 ft Weight: 57.2 kg Allergies Allergy/AdvReac Type Severity Reaction Status Date / Time gabapentin Allergy Verified 06/06/23 13:32 Medications Home Medications Medication Instructions Recorded Confirmed Last Taken cholecalciferol (vitamin D3) 25 1,000 units PO DAILY 01/18/19 02/15/24 Unknown mcg (1,000 unit) capsule donepezil 10 mg tablet 10 mg PO HS 01/18/19 02/15/24 Unknown omega-3 fatty acids 1,000 mg 2,000 mg PO DAILY 01/18/19 02/15/24 Unknown capsule (Fish Oil Concentrate) metoprolol tartrate 25 mg tablet 12.5 mg (1/2 x 25 mg) PO BID #90 05/21/19 02/15/24 Unknown tabs ropinirole 0.5 mg tablet 0.5 mg PO HS #90 tabs 05/21/19 02/15/24 Unknown cyanocobalamin (vitamin B-12) 1,000 mcg PO DAILY #30 caps 08/11/20 02/15/24 Unknown 1,000 mcg capsule clopidogrel 75 mg tablet (Plavix) 75 mg PO DAILY #30 tabs 03/30/21 02/15/24 Unknown metformin 500 mg 24 hr 500 mg PO DAILY #90 tabs 08/10/22 02/15/24 Unknown tablet,extended release (gastric retention) simvastatin 40 mg tablet 40 mg PO HS #90 tabs 08/10/22 02/15/24 Unknown acetaminophen 500 mg capsule 500 mg PO Q8H PRN fever / fever 03/05/23 02/15/24 Unknown #90 caps potassium chloride 20 mEq 40 meq PO DAILY 06/06/23 02/15/24 Unknown tablet,extended release(part/cryst) (Klor-Con M) amoxicillin 875 mg-potassium 1 tab PO Q8H #20 tabs 02/18/24 Unknown clavulanate 125 mg tablet Active Medications Generic Name Dose Route Start Last Admin Trade Name Freq PRN Reason Stop Dose Admin Acetaminophen 500 mg 02/15/24 21:40 02/20/24 09:07 Acetaminophen 500 Mg Tab PO 03/16/24 21:39 500 mg Q8H PRN Administration fever Clopidogrel Bisulfate 75 mg 02/16/24 09:00 02/20/24 09:07 Clopidogrel Bisulfate 75 Mg Tab PO 03/17/24 08:59 75 mg DAILY DENNIS Administration Ceftriaxone Sodium 2,000 mg in 50 mls @ 100 mls/hr 02/17/24 14:30 02/19/24 15:51 Rocephin IV 02/25/24 14:59 Infused Q24H DENNIS Infusion Insulin Aspart 0 units 02/15/24 21:22 02/20/24 08:18 Insulin Aspart Per Unit Charge SC 03/16/24 21:21 Not Given ACHS DENNIS Metoprolol Tartrate 12.5 mg 02/18/24 21:00 02/20/24 09:06 Metoprolol Tartrate 25 Mg Tab PO 03/19/24 20:59 12.5 mg BID DENNIS Administration Pantoprazole Sodium 40 mg 02/19/24 15:30 02/20/24 09:07 Pantoprazole 40 Mg Tab PO 03/20/24 15:29 40 mg QAM DENNIS Administration Potassium Chloride 20 meq 02/19/24 09:00 02/20/24 09:07 Potassium Chloride Crtab 20 Meq Tabcr PO 03/20/24 08:59 20 meq QAM DENNIS Administration Ropinirole HCl 0.5 mg 02/15/24 21:22 02/19/24 21:30 Ropinirole Hcl 0.25 Mg Tablet PO 03/16/24 21:21 0.5 mg HS DENNIS Administration Past Medical History Medical History Stroke Past Family History Family History Son No problems noted. Sister Breast cancer Diabetes Mother Dementia Denies family history of Ovarian cancer Prostate cancer Myocardial infarction Colorectal cancer Past Surgical History Surgical History History of total abdominal hysterectomy and bilateral salpingo-oophorectomy History of tonsillectomy Social History Smoking Status: Unknown if ever smoked Do You Dip or Chew Tobacco: No Hx Alcohol Use: No Hx Substance Use: No Physical Exam Vital Signs Last Vital Signs Temp 38.0 C H 02/20/24 07:57 Pulse 81 02/20/24 07:57 Resp 18 02/20/24 07:57 BP 121/59 L 02/20/24 07:57 Pulse Ox 91 02/20/24 07:57 O2 Del Method Room Air 02/20/24 10:03 Testing Laboratory Results 02/20/24 09:02 02/20/24 09:02 Urine Color Yellow 02/15/24 15:49 Urine Appearance Turbid (Clear) A 02/15/24 15:49 Urine pH 7.0 (4.5-7.5) 02/15/24 15:49 Ur Specific [place] 1.019 (1.000-1.030) 02/15/24 15:49 Urine Protein 3+ (Negative) H 02/15/24 15:49 Urine Glucose (UA) Negative (Negative) 02/15/24 15:49 Urine Ketones Trace (Negative) H 02/15/24 15:49 Urine Nitrite Negative (Negative) 02/15/24 15:49 Ur Leukocyte Esterase 3+ (Negative) H 02/15/24 15:49 Urine WBC (Auto) >50 /hpf (0-5) H 02/15/24 15:49 Urine RBC (Auto) 11-20 /hpf (0-2) H 02/15/24 15:49 U Hyaline Cast (Auto) >20 /lpf (0-2) H 02/15/24 15:49 U Epithel Cells (Auto) 0-2 /hpf (0-2) 02/15/24 15:49 Urine Bacteria (Auto) 4+ (None Seen) H 02/15/24 15:49 02/15/24 15:17 Aerobic Blood Culture - Final Blood Proteus mirabilis Anaerobic Blood Culture - Final 02/15/24 15:17 Aerobic Blood Culture - Final Blood Proteus mirabilis Anaerobic Blood Culture - Final 02/15/24 15:49 Urine Culture - Final Urine,Clean Catch Proteus mirabilis 02/20/24 08:02 POC Glucose 117 H
--- NOTE | 2024-02-20 10:52 | Hospitalist Progress Note ---
Date of Service February 20, 2024 Assessment & Plan (1) Calculus of distal left ureter: Plan: CT a/p 02/19/24 completed due to ongoing low-grade fevers, recent renal u/s with left sided hydronephrosis, and previous h/o kidney stone CT showed a distal 5mm left-sided ureteral stone with mild hydronephrosis counseled pt's children regarding this, chances of spontaneous passage, etc. discussed that the stone was likely a big cause of her UTI/bacteremia [place] [facility] [place] and they plan to take Ms Allen to the OR today for ureteral stent placement NPO until that time cont IV abx (2) Bacteremia: Plan: 2nd to proteus UTI cont rocephin IV day #6 of IV such could potentially transition to PO augmentin at discharge but hold off for now due to #1 (3) Sepsis: Plan: severe sepsis/bacteremia 2nd proteus see #1, #2 above (4) Urinary tract infection: Plan: see above discussion complicated, due to obstructing left-sided renal stone 5mm (5) Acute kidney injury: Plan: Cr at admission 2.39 now 0.7 resolved 2nd to severe sepsis/bacteremia 2nd to obstructing renal stone recheck BMP am for stability (6) Dementia: Plan: advanced Continue donepezil (7) Diabetes mellitus: Plan: On metformin 500 mg daily at home BSGs controlled at this time with novolog SSI only previous a1c was <6.5% (8) HTN (hypertension): Plan: cont metoprolol cont to hold HCTZ (9) Elevated troponin: Plan: continue clopidogrel, metoprolol and simvastatin. elevated troponin related to myocardial demand ischemia, no evidence of acute coronary syndrome (10) Hypokalemia: Plan: repleted resolved (11) Acute metabolic encephalopathy: Plan: 2nd to sepsis/UTI Plan HLD- cont Simvastatin 40 mg RLS- cont Ropinirole 0.5 mg family updated at bedside this am appreciate urology assistance Admission and Anticipated Discharge Date Admission Date: February 15, 2024 Subjective saw patient before she had her cystoscopy with ureteral stent placement she was lethargic this am unable to obtain any history her 2 sons and daughter were present at bedside - they report she has been awake at times today but has been mildly agitated per staff no events overnight Review of Systems Review of Systems: Unobtainable due to cognitive status Physical Exam Physical Exam: gen - sleeping soundly during the visit, NAD, resting comfortably in bed neck - no JVD mouth - MMM heart - RRR, s1 s2, 1/6 systolic murmur RUSB lungs - CTA b/l abd - soft NT ND BS+ ext - no edema, pulses 2+ b/l Results & Data Results & Data Vital Signs (Past 12 Hours) Vital Signs Temp Pulse Pulse Resp BP BP Pulse Ox 02/20/24 10:03 02/20/24 07:57 38.0 C H 81 18 121/59 L 91 02/20/24 07:53 75 02/19/24 23:00 36.4 C L 89 16 138/65 93 O2 Del Method 02/20/24 10:03 Room Air 02/20/24 07:57 Room Air 02/20/24 07:53 02/19/24 23:00 Room Air Laboratory Results Laboratory Results - last 24 hr 02/20/24 02/20/24 02/20/24 08:02 09:02 11:55 WBC 10.64 RBC 3.24 L Hgb 9.2 L Hct 27.2 L MCV 84.0 MCH 28.4 MCHC 33.8 RDW Std Deviation 41.0 RDW Coeff of Ruben 13.2 Plt Count 134 MPV 11.5 Sodium 137 Potassium 3.7 Chloride 104 Carbon Dioxide 28 Anion Gap 5 BUN 13 Creatinine 0.73 Est Cr Clr Drug Dosing 41.4 eGFR 78.56 BUN/Creatinine Ratio 17.8 Glucose 116 H POC Glucose 117 H 121 H Calcium 8.5 L Magnesium 1.7 PG Care Time/CCT Total # of Minutes Spent Total Time Spent with Patient: Total time spent is greater than 50% in coordination of care (as documented) at patient's floor/unit and/or counseling patient: Coding Level of Care Code 49324 SUB INP/OBS CARE 2/35MIN Diagnoses Calculus of distal left ureter N20.1 Bacteremia R78.81 Sepsis A41.9 Urinary tract infection N39.0 Acute kidney injury N17.9 Dementia F03.90 Diabetes mellitus E11.9 Essential hypertension I10 Hypertension type: essential hypertension Elevated troponin R79.89 Hypokalemia E87.6 Acute metabolic encephalopathy G93.41 (8) HTN (hypertension) Hypertension type: essential hypertension Qualified Code(s): I10 - Essential (primary) hypertension
[2024-02-20] MEDS: SODIUM CHLORIDE 0.9% 500 ML IV SCH (11:18)
[2024-02-20] MEDS ORDERED: ATROPINE SULFATE 0.1 MG/ML 10ML SYR IV PRN (13:10)
[2024-02-20] MEDS ORDERED: ePHEDrine sulfate 50 MG/ML AMP IV PRN (13:10)
[2024-02-20] MEDS ORDERED: HYDROmorphone INJ 1 MG/ML SYRINGE IV PRN (13:10)
[2024-02-20] MEDS ORDERED: fentaNYL citrate PF 100 MCG/2 ML VIAL IV PRN (13:10)
[2024-02-20] MEDS ORDERED: ONDANSETRON INJ 2 MG/ML 2 ML VIAL IV PRN (13:10)
[2024-02-20] MEDS ORDERED: ONDANSETRON INJ 2 MG/ML 2 ML VIAL ONE (13:51)
[2024-02-20] MEDS ORDERED: DEXAMETHASONE SOD INJ 4 MG/ML VIAL ONE (13:51)
[2024-02-20] MEDS ORDERED: LIDOCAINE 2% 2 ML VIAL/AMP(20MG/ML) INFIL ONE (13:51)
[2024-02-20] MEDS ORDERED: fentaNYL citrate PF 100 MCG/2 ML VIAL ONE (13:51)
[2024-02-20] MEDS ORDERED: PROPOFOL IV EMULSION 10 MG/ML 20 ML VIAL IV ONE (13:51)
[2024-02-20] MEDS: DIATRIZOATE MEGLUMINE 30% 100ML VIAL INSTIL PRN (15:04)
--- NOTE | 2024-02-20 15:09 | Operative Report ---
[facility] Post Operative Report Pre & Post Diagnosis Left urolithiasis, sepsis Operation Date: 02/20/24 07:00 <No data on this case meets the specified criteria> Left urolithiasis, sepsis I identified the patient and participated in the time-out.: Yes Procedure Cystoscopy, left retrograde pyelogram with radiographic interpretation, left ureteral stent placement Operation Date: 02/20/24 07:00 <No data on this case meets the specified criteria> Surgeon Estevan Lang MD Stonecutter Assistant None Estimated Blood Loss 0 Findings See Below Tortuous ureter. Possible small amount of contrast extravasation at proximal ureter. Stent in appropriate position. Significant debris in bladder. Specimens None Drains 1. 6 Lithuanian by 24 cm left ureteral stent 2. 16 Lithuanian Parra catheter with 10 cc in balloon Anesthesia Type General Complications none Indications 88-year-old female who came in septic. Positive blood and urine cultures with Proteus. A CT scan performed several days after admission showed a left ureteral calculus. Due to significant dementia, family is uncertain if they want to proceed with stent but opted today to proceed with left stent placement. Description of Procedure After informed consent was obtained, the patient was transported operative suite. MAC anesthesia was induced. The patient was placed in dorsal lithotomy position prepped and draped in a sterile fashion. They received preoperative ceftriaxone for antibiotic prophylaxis. An appropriate surgical timeout was performed. A 22 Lithuanian rigid scope was inserted per urethra into the bladder. Lozano cystoscopy revealed significant debris in the bladder consistent with infection. I turned my attention the left ureteral orifice and intubated this with a 5 Lithuanian open-ended catheter. A left retrograde pyelogram was shot which showed mild hydronephrosis. There was significant tortuosity of the left proximal ureter with a possible small amount of contrast extravasation. A sensor wire was advanced into the kidney and confirmed fluoroscopically. A 6 Lithuanian by 24 cm left ureteral stent was deployed with a good proximal coil in the renal pelvis and a good distal coil noted in the bladder. These were confirmed fluoroscopically and under direct visualization, respectively. 16 Lithuanian Parra catheter was placed with return of urine. 10 cc of water was instilled in the balloon. The scope was removed. This concluded the end of the case. All counts were correct at the end of the case. I was present, scrubbed, and actively participated for the entirety of the procedure. I attest to the content of the Intraoperative Record and any orders documented therein. Any exceptions are noted below.
--- NOTE | 2024-02-20 16:10 | Fluoroscopy Report ---
FL retrograde includes kub CLINICAL HISTORY: RETROGRADE/STENT PLACEMENT COMPARISON STUDY: CT of the abdomen and pelvis February 19, 2024. FLUOROSCOPY TIME: 32 seconds. Ka,r : 4.13 mGy FLUOROSCOPIC IMAGES: 1 FINDINGS: Fluoroscopy was provided during left retrograde pyelogram with left ureteral stent placemen t. IMPRESSION: Fluoroscopy provided during left retrograde pyelogram with left ureteral stent placement . ACT 112: Negative or not required by law. Electronically signed by: Devante Sims M.D. 02/20/2024 4:09 PM
--- NOTE | 2024-02-20 19:13 | Anesthesiology Progress Note ---
Date of Service February 20, 2024 Anesthesia Post Procedure Vital Signs Vital Signs: Temp Pulse Pulse Resp BP BP Pulse Ox 02/20/24 18:11 36.6 C 88 14 154/71 H 94 02/20/24 16:04 36.4 C L 76 12 113/66 93 02/20/24 15:33 36.2 C L 02/20/24 15:25 80 16 129/70 100 02/20/24 15:16 36.0 C L 92 H 16 130/63 94 02/20/24 13:00 36.8 C 75 16 101/56 L 95 02/20/24 11:51 37.0 C 63 18 111/58 L 94 02/20/24 10:03 02/20/24 07:57 38.0 C H 81 18 121/59 L 91 02/20/24 07:53 75 02/19/24 23:00 36.4 C L 89 16 138/65 93 02/19/24 22:05 83 02/19/24 20:00 02/19/24 19:27 36.6 C 87 16 157/73 H 94 O2 Del Method O2 Flow Rate 02/20/24 18:11 Room Air 02/20/24 16:04 Room Air 02/20/24 15:33 02/20/24 15:25 Oxymask 4 02/20/24 15:16 Oxymask 5 02/20/24 13:00 Room Air 02/20/24 11:51 Room Air 02/20/24 10:03 Room Air 02/20/24 07:57 Room Air 02/20/24 07:53 02/19/24 23:00 Room Air 02/19/24 22:05 02/19/24 20:00 Room Air 02/19/24 19:27 Room Air Transfer of Care Handoff Completed per policy Notes Mental Status: alert / awake / arousable and participated in evaluation Patient Amnestic to Procedure: Yes Nausea / Vomiting: adequately controlled Pain: adequately controlled Airway Patency, RR, SpO2: stable & adequate BP & HR: stable & adequate Hydration State: stable & adequate Anesthetic Complications: no major complications apparent and Pt Satisfied with anesthetic care
[2024-02-21 07:58] LABS: Basophils # (auto) 0.03 K/uL (0.00-0.20); Basophils % (auto) 0.3 %; Eosinophils # (auto) 0.17 K/uL (0.00-0.50); Eosinophils % (auto) 1.8 %; Hematocrit (blood only) 28.6 % (37.0-47.0); Hemoglobin 9.7 g/dl (12.0-16.0); Immature Granulocytes # (auto) 0.26 K/uL (0.01-0.20); Immature Granulocytes % (auto) 2.8 %; Lymphocytes # (auto) 0.85 K/uL (1.20-3.40); Mean Corpuscular Hemoglobin 28.4 pg (25.0-34.0); Mean Corpuscular Hgb Conc 33.9 g/dL (32.0-36.0); Mean Corpuscular Volume 83.6 fL (80.0-100.0); Mean Platelet Volume 10.8 fL (9.4-12.4); Monocytes % (auto) 14.9 %; Neutrophils # (auto) 6.69 K/uL (1.40-6.50); Neutrophils % (auto) 71.2 %; Platelet Count 195 K/uL (130-400); RDW Coefficient of Variation 13.7 % (11.5-14.5); RDW Standard Deviation 42.3 fL (36.4-46.3); Red Blood Count 3.42 M/uL (4.20-5.40)
[2024-02-21 08:18] LABS: BUN Creatinine Ratio 17.3 (10-20); Calcium 8.8 mg/dl (8.6-10.3); Creatinine Clr Calc Pharmacy 40.1 ml/min; Potassium 3.7 mmol/L (3.5-5.1)
--- NOTE | 2024-02-21 08:36 | Urology Progress Note ---
Date of Service February 21, 2024 Assessment & Plan (1) Calculus of distal left ureter: (2) Bacteremia: (3) Urinary tract infection: Plan: - Pt POD#1 s/p cystoscopy, retrograde pyelogram and left ureteral stent placement - Febrile yesterday evening, afebrile today - Lab work reviewed - creatinine creatinine 0.75, WBC 9.4, Hgb 9.7 - Urine and blood cultures w/ Proteus - Continue with antibiotics per cultures - Per nursing notes, Parra catheter was removed by patient overnight and it was replaced - Okay to discontinue Parra catheter if patient continues to tug or pull at it - Continue supportive care, antibiotics and medical management per medicine service - Will arrange outpatient follow-up with our service - will sign off, please contact our service with any additional questions or concerns Admission and Anticipated Discharge Date Admission Date: February 15, 2024 Subjective Patient seen and examined at bedside this morning. She has asleep with bilateral mitts on, no distress. Per nursing documentation, patient pulled out catheter overnight. It was replaced. Parra intact with clear yellow urine. She was febrile yesterday evening with Tmax 39.1, afebrile this morning. Review of Systems Review of Systems: Unobtainable due to cognitive status Physical Exam Physical Exam: patient sleeping in bed, bilateral mitts in place, NAD Respiratory: normal respiratory effort; no respiratory distress and no labored breathing Musculoskeletal: Head/Neck/Chest: normocephalic Genitourinary: Parra draining clear yellow Results & Data Vital Signs (Past 12 Hours) Vital Signs Temp Pulse Pulse Resp BP BP Pulse Ox 02/21/24 07:26 37.0 C 82 26 H 134/56 L 93 02/21/24 03:15 37.1 C 74 18 125/69 93 02/20/24 22:41 37.3 C 82 16 114/56 L 91 02/20/24 21:45 86 O2 Del Method 02/21/24 07:26 Room Air 02/21/24 03:15 Room Air 02/20/24 22:41 Room Air 02/20/24 21:45 PG Care Time/CCT Total # of Minutes Spent Total Time Spent with Patient: Total time spent is greater than 50% in coordination of care (as documented) at patient's floor/unit and/or counseling patient: Coding Level of Care Code 58419 SUB INP/OBS CARE 05/10MIN Diagnoses Calculus of distal left ureter N20.1 Bacteremia R78.81 Urinary tract infection N39.0
--- NOTE | 2024-02-21 11:11 | XRay Report ---
XR chest 1V portable HISTORY: 88 years-old Female ?pulm edema acute shortness of breath COMPARISON: 02/15/2024 TECHNIQUE: AP view of the chest FINDINGS: Cardiac silhouette is upper limits of normal in size. No pneumothorax. Pulmonary vascular congestion with interstitial coarsening. Small pleural effusions with mild bibasilar and left midlung consolidat ion. Bones appear grossly intact. IMPRESSION: 1. Cardiomegaly with interstitial pulmonary edema. 2. Small pleural effusions with mild bibasilar consolidation favoring atelectasis. 3. Linear left midlung consolidation suggests atelectasis. Superimposed pneumonia considered less lik elizabeth. ACT 112: Negative or not required by law. The above report was generated using voice recognition software. It may contain grammatical, syntax o r spelling errors. Electronically signed by: Hill Patton M.D. 02/21/2024 11:10 AM
[2024-02-21] MEDS: POTASSIUM CHLORIDE PWD 20 MEQ PACK PO ONE (13:36)
[2024-02-21] MEDS: FUROSEMIDE INJ 20 MG/2 ML VIAL IV ONE ×2 (13:36→20:41)
--- NOTE | 2024-02-21 18:41 | Hospitalist Progress Note ---
Date of Service February 21, 2024 Assessment & Plan (1) Acute diastolic CHF (congestive heart failure): Plan: echo 2019 with grade 2 diastolic dysfunction with preserved EF clinically & radiographically has acute CHF lasix now 20mg x 1 IV then repeat later today depending on response consider repeat echo (2) Calculus of distal left ureter: Plan: POD #1 s/p left ureteral stent placement due to obstructing, distal 5mm left- sided ureteral stone with mild hydronephrosis appreciate [facility] assistance discussed with pt's family that the stone was likely a big cause of her UTI/bacteremia cont IV rocephin (3) Bacteremia: Plan: 2nd to proteus UTI cont rocephin IV - day #7 could potentially transition to PO augmentin at discharge but hold off for now due to #2 (4) Sepsis: Plan: severe sepsis/bacteremia 2nd proteus had fever yesterday s/p ureteral stent placement but no fever today [id number] was very tired yesterday/today hopefully she starts to turn the corner tomorrow (5) Urinary tract infection: Plan: see above discussion complicated, due to obstructing left-sided renal stone 5mm (6) Acute kidney injury: Plan: Cr at admission 2.39 now 0.7 resolved 2nd to severe sepsis/bacteremia 2nd to obstructing renal stone recheck BMP am for stability especially in light of diuresis (7) Dementia: Plan: advanced Continue donepezil (8) Diabetes mellitus: Plan: On metformin 500 mg daily at home BSGs controlled at this time with novolog SSI only previous a1c was <6.5% (9) HTN (hypertension): Plan: cont metoprolol cont to hold HCTZ (10) Elevated troponin: Plan: continue clopidogrel, metoprolol and simvastatin. elevated troponin related to myocardial demand ischemia, no evidence of acute coronary syndrome (11) Hypokalemia: Plan: repleted resolved (12) Acute metabolic encephalopathy: Plan: 2nd to sepsis/UTI also was very lethargic yesterday and today in the setting of her ureteral stent placement yesterday cont supportive care soft mitts to hands as needed to prevent injury and self- removal of IVs, carter, etc check a VBG in am to ensure no hypercapnia Plan HLD- cont Simvastatin 40 mg RLS- cont Ropinirole 0.5 mg family updated at bedside this am once again appreciate urology assistance Admission and Anticipated Discharge Date Admission Date: February 15, 2024 Subjective had fever last pm - 39.1 no fever since was significantly altered & agitated; carter pulled out overnight, carter placed back, and soft mitts placed on hands to prevent injury and pulling out of catheter again this am she took a minimal amount of breakfast remains lethargic, but will wake at times per family (2 sons were present at bedside during the visit) tele - NSR Review of Systems Review of Systems: Unobtainable due to cognitive status Physical Exam 2 Physical Exam: gen - sleeping soundly during the visit, did not wake during the exam; mild tachypnea noted; mild retractions noted neck - JVD about 1/2 way up neck (new) mouth - MMM heart - RRR, s1 s2, 1/6 systolic murmur RUSB lungs - b/l rales; mild tachypnea, mild retractions abd - soft NT ND BS+ ext - no edema, pulses 2+ b/l psych - a/o x 0 Results & Data Results & Data Vital Signs (Past 12 Hours) Vital Signs Temp Pulse Resp BP Pulse Ox O2 Del Method 02/21/24 15:46 37.5 C 81 18 129/72 92 Room Air 02/21/24 11:47 36.9 C 76 18 133/67 93 Room Air 02/21/24 07:26 37.0 C 82 26 H 134/56 L 93 Room Air Laboratory Results Laboratory Results - last 24 hr 02/20/24 02/21/24 02/21/24 20:28 07:29 07:30 WBC 9.40 RBC 3.42 L Hgb 9.7 L Hct 28.6 L MCV 83.6 MCH 28.4 MCHC 33.9 RDW Std Deviation 42.3 RDW Coeff of Ruben 13.7 Plt Count 195 MPV 10.8 Immature Gran % (Auto) 2.8 Neut % (Auto) 71.2 Lymph % (Auto) 9.0 [place] % (Auto) 14.9 Eos % (Auto) 1.8 Baso % (Auto) 0.3 Neut # (Auto) 6.69 H Lymph # (Auto) 0.85 L [place] # (Auto) 1.40 H Eos # (Auto) 0.17 Baso # (Auto) 0.03 Immature Gran # (Auto) 0.26 H Sodium 141 Potassium 3.7 Chloride 107 Carbon Dioxide 27 Anion Gap 7 BUN 13 Creatinine 0.75 Est Cr Clr Drug Dosing 40.1 eGFR 76.05 BUN/Creatinine Ratio 17.3 Glucose 89 POC Glucose 107 H 94 Calcium 8.8 02/21/24 02/21/24 11:52 17:56 WBC RBC Hgb Hct MCV MCH MCHC RDW Std Deviation RDW Coeff of Ruben Plt Count MPV Immature Gran % (Auto) Neut % (Auto) Lymph % (Auto) [place] % (Auto) Eos % (Auto) Baso % (Auto) Neut # (Auto) Lymph # (Auto) [place] # (Auto) Eos # (Auto) Baso # (Auto) Immature Gran # (Auto) Sodium Potassium Chloride Carbon Dioxide Anion Gap BUN Creatinine Est Cr Clr Drug Dosing eGFR BUN/Creatinine Ratio Glucose POC Glucose 142 H 120 H Calcium Diagnostic Findings Chest X-Ray 02/21/24 10:04 XR chest 1V portable HISTORY: 88 years-old Female ?pulm edema acute shortness of breath COMPARISON: 02/15/2024 TECHNIQUE: AP view of the chest FINDINGS: Cardiac silhouette is upper limits of normal in size. No pneumothorax. Pulmonary vascular congestion with interstitial coarsening. Small pleural effusions with mild bibasilar and left midlung consolidation. Bones appear grossly intact. IMPRESSION: 1. Cardiomegaly with interstitial pulmonary edema. 2. Small pleural effusions with mild bibasilar consolidation favoring atelectasis. 3. Linear left midlung consolidation suggests atelectasis. Superimposed pneumonia considered less likely. ACT 112: Negative or not required by law. The above report was generated using voice recognition software. It may contain grammatical, syntax or spelling errors. Electronically signed by: Hill Patton M.D. 02/21/2024 11:10 AM PG Care Time/CCT Total # of Minutes Spent Total Time Spent with Patient: Total time spent is greater than 50% in coordination of care (as documented) at patient's floor/unit and/or counseling patient: Coding Level of Care Code 94323 SUB INP/OBS CARE 2/35MIN Diagnoses Acute diastolic CHF (congestive heart failure) I50.31 Calculus of distal left ureter N20.1 Bacteremia R78.81 Sepsis A41.9 Urinary tract infection N39.0 Acute kidney injury N17.9 Dementia F03.90 Diabetes mellitus E11.9 Essential hypertension I10 Hypertension type: essential hypertension Elevated troponin R79.89 Hypokalemia E87.6 Acute metabolic encephalopathy G93.41 (9) HTN (hypertension) Hypertension type: essential hypertension Qualified Code(s): I10 - Essential (primary) hypertension
[2024-02-22 09:33] LABS: Base Excess VBG 8.2 mEq/L; HCO3 VBG 32 mmol/L; Oxygen Saturation VBG < 60.0 %; PCO2 VBG 40 mmHg (38-50); PO2 VBG 26 mmHg; pH VBG 7.51 (7.36-7.41)
[2024-02-22 09:58] LABS: BUN Creatinine Ratio 16.1 (10-20); Calcium 9.1 mg/dl (8.6-10.3); Creatinine Clr Calc Pharmacy 34.1 ml/min; Magnesium 1.7 mg/dl (1.7-2.4); Potassium 3.8 mmol/L (3.5-5.1)
--- NOTE | 2024-02-22 11:05 | Hospitalist Progress Note ---
Date of Service February 22, 2024 Assessment & Plan (1) Acute diastolic CHF (congestive heart failure): Plan: echo 2019 with grade 2 diastolic dysfunction with preserved EF will repeat her echo today clinically & radiographically has acute CHF cont to improve w/ diuresis give 2 doses of lasix 20mg each today likely to need PO lasix at d/c for a few days (2) Calculus of distal left ureter: Plan: POD #2 s/p left ureteral stent placement due to obstructing, distal 5mm left- sided ureteral stone with mild hydronephrosis appreciate [facility] U[facility] assistance discussed with pt's family that the stone was likely a big cause of her UTI/bacteremia cont IV rocephin (3) Bacteremia: Plan: 2nd to proteus UTI cont rocephin IV - day #8 in light of obstructing stone and needing stent placement will cont rocephin daily for total 14 days then possibly po keflex for prophylaxis until stent is removed (4) Sepsis: Plan: severe sepsis/bacteremia 2nd proteus (5) Urinary tract infection: Plan: see above discussion complicated, due to obstructing left-sided renal stone 5mm (6) Acute kidney injury: Plan: Cr at admission 2.39 now 0.87 resolved 2nd to severe sepsis/bacteremia 2nd to obstructing renal stone recheck BMP am (7) Dementia: Plan: advanced Continue donepezil (8) Diabetes mellitus: Plan: On metformin 500 mg daily at home BSGs controlled at this time with novolog SSI only previous a1c was <6.5% (9) HTN (hypertension): Plan: cont metoprolol cont to hold HCTZ (10) Elevated troponin: Plan: continue clopidogrel, metoprolol and simvastatin. elevated troponin related to myocardial demand ischemia, no evidence of acute coronary syndrome (11) Hypokalemia: Plan: repleted resolved cont K supplementation in light of diuresis (12) Acute metabolic encephalopathy: Plan: 2nd to sepsis/UTI mental status returning to baseline per her children Plan HLD- cont Simvastatin 40 mg RLS- cont Ropinirole 0.5 mg family updated at bedside this am once again appreciate urology assistance back to [facility] tomorrow if volume status acceptable? Admission and Anticipated Discharge Date Admission Date: February 15, 2024 Subjective ate good breakfast per her children who were present at bedside overnight no issues making good urine - carter still in place patient unable to provide any meaningful history due to advanced dementia; no agitation, however Review of Systems Review of Systems: Unobtainable due to cognitive status Physical Exam Physical Exam: gen - resting comfortably in bed, NAD; no respiratory distress; smiled once neck - JVD improved mouth - MMM heart - RRR, s1 s2, 1/6 systolic murmur RUSB lungs - b/l rales L>R - but improving; mild tachypnea, mild retractions - resolved today abd - soft NT ND BS+ ext - no edema, pulses 2+ b/l psych - a/o x 1 Results & Data Results & Data Vital Signs (Past 12 Hours) Vital Signs Temp Pulse Pulse Resp BP BP Pulse Ox 02/22/24 10:14 36.7 C 93 H 16 112/69 90 02/22/24 08:54 36.8 C 80 16 134/62 90 02/22/24 04:07 36.8 C 81 17 150/72 H 90 02/22/24 01:20 80 02/21/24 23:15 36.9 C 80 16 149/76 H 89 L O2 Del Method 02/22/24 10:14 Room Air 02/22/24 08:54 Room Air 02/22/24 04:07 Room Air 02/22/24 01:20 02/21/24 23:15 Room Air Laboratory Results Laboratory Results - last 48 hr 02/21/24 02/21/24 02/21/24 07:29 11:52 17:56 WBC RBC Hgb Hct MCV MCH MCHC RDW Std Deviation RDW Coeff of Ruben Plt Count MPV Immature Gran % (Auto) Neut % (Auto) Lymph % (Auto) [place] % (Auto) Eos % (Auto) Baso % (Auto) Neut # (Auto) Lymph # (Auto) [place] # (Auto) Eos # (Auto) Baso # (Auto) Immature Gran # (Auto) VBG pH VBG pCO2 VBG pO2 VBG HCO3 VBG O2 Saturation VBG Base Excess Sodium 141 Potassium 3.7 Chloride 107 Carbon Dioxide 27 Anion Gap 7 BUN 13 Creatinine 0.75 Est Cr Clr Drug Dosing 40.1 eGFR 76.05 BUN/Creatinine Ratio 17.3 Glucose 89 POC Glucose 142 H 120 H Calcium 8.8 Magnesium 02/21/24 02/22/24 02/22/24 20:35 08:10 09:18 WBC RBC Hgb Hct MCV MCH MCHC RDW Std Deviation RDW Coeff of Ruben Plt Count MPV Immature Gran % (Auto) Neut % (Auto) Lymph % (Auto) [place] % (Auto) Eos % (Auto) Baso % (Auto) Neut # (Auto) Lymph # (Auto) [place] # (Auto) Eos # (Auto) Baso # (Auto) Immature Gran # (Auto) VBG pH 7.51 H VBG pCO2 40 VBG pO2 26 VBG HCO3 32 VBG O2 Saturation < 60.0 VBG Base Excess 8.2 Sodium 137 Potassium 3.8 Chloride 102 Carbon Dioxide 30 Anion Gap 5 BUN 14 Creatinine 0.87 Est Cr Clr Drug Dosing 34.1 eGFR 63.65 BUN/Creatinine Ratio 16.1 Glucose 212 H POC Glucose 113 H 139 H Calcium 9.1 Magnesium 1.7 02/22/24 02/22/24 02/22/24 11:54 16:46 20:46 WBC RBC Hgb Hct MCV MCH MCHC RDW Std Deviation RDW Coeff of Ruben Plt Count MPV Immature Gran % (Auto) Neut % (Auto) Lymph % (Auto) [place] % (Auto) Eos % (Auto) Baso % (Auto) Neut # (Auto) Lymph # (Auto) [place] # (Auto) Eos # (Auto) Baso # (Auto) Immature Gran # (Auto) VBG pH VBG pCO2 VBG pO2 VBG HCO3 VBG O2 Saturation VBG Base Excess Sodium Potassium Chloride Carbon Dioxide Anion Gap BUN Creatinine Est Cr Clr Drug Dosing eGFR BUN/Creatinine Ratio Glucose POC Glucose 151 H 193 H 174 H Calcium Magnesium PG Care Time/CCT Total # of Minutes Spent Total Time Spent with Patient: Total time spent is greater than 50% in coordination of care (as documented) at patient's floor/unit and/or counseling patient: Coding Level of Care Code 93099 SUB INP/OBS CARE 2/35MIN Diagnoses Acute diastolic CHF (congestive heart failure) I50.31 Calculus of distal left ureter N20.1 Bacteremia R78.81 Sepsis A41.9 Urinary tract infection N39.0 Acute kidney injury N17.9 Dementia F03.90 Diabetes mellitus E11.9 Essential hypertension I10 Hypertension type: essential hypertension Elevated troponin R79.89 Hypokalemia E87.6 Acute metabolic encephalopathy G93.41 (9) HTN (hypertension) Hypertension type: essential hypertension Qualified Code(s): I10 - Essential (primary) hypertension
[2024-02-22] MEDS: POTASSIUM CHLORIDE PWD 20 MEQ PACK PO SCH (11:30)
[2024-02-22] MEDS: FUROSEMIDE INJ 20 MG/2 ML VIAL IV ONE ×2 (11:30→17:29)
--- NOTE | 2024-02-22 12:35 | XCELERA ---
[id number]
[2024-02-23 07:37] LABS: Basophils # (auto) 0.03 K/uL (0.00-0.20); Basophils % (auto) 0.3 %; Eosinophils # (auto) 0.12 K/uL (0.00-0.50); Eosinophils % (auto) 1.4 %; Hematocrit (blood only) 28.3 % (37.0-47.0); Hemoglobin 9.7 g/dl (12.0-16.0); Immature Granulocytes # (auto) 0.19 K/uL (0.01-0.20); Immature Granulocytes % (auto) 2.2 %; Lymphocytes # (auto) 0.96 K/uL (1.20-3.40); Lymphocytes % (auto) 11.1 %; Mean Corpuscular Hemoglobin 28.4 pg (25.0-34.0); Mean Corpuscular Hgb Conc 34.3 g/dL (32.0-36.0); Mean Corpuscular Volume 82.7 fL (80.0-100.0); Mean Platelet Volume 10.9 fL (9.4-12.4); Monocytes # (auto) 1.07 K/uL (0.11-0.59); Monocytes % (auto) 12.3 %; Neutrophils # (auto) 6.31 K/uL (1.40-6.50); Neutrophils % (auto) 72.7 %; Platelet Count 261 K/uL (130-400); RDW Coefficient of Variation 13.4 % (11.5-14.5); RDW Standard Deviation 40.5 fL (36.4-46.3); Red Blood Count 3.42 M/uL (4.20-5.40); White Blood Count 8.68 K/ul (4.8-10.8)
--- NOTE | 2024-02-23 07:40 | XRay Report ---
XR chest 1V portable CLINICAL HISTORY: recent CHF, interval change COMPARISON STUDY: Chest radiograph February 21, 2024. FINDINGS: There is no pneumothorax. Small bilateral pleural effusions persist. Skin folds project ove r the right chest. This likely accounts for asymmetric right basilar opacity. Mild pulmonary edema pe rsists. Left basilar opacity has slightly improved. Cardiomediastinal silhouette is stable. IMPRESSION: 1. Cardiomegaly. No significant change in mild interstitial pulmonary edema. 2. Persistent small bilateral pleural effusions with associated bibasilar opacities. Asymmetric right lower lung opacity is likely artifactual to be assessed on follow-up chest radiograph. ACT 112: Negative or not required by law. Electronically signed by: Devante Sims M.D. 02/23/2024 7:39 AM
[2024-02-23 07:53] LABS: BUN Creatinine Ratio 21.1 (10-20); Calcium 9.3 mg/dl (8.6-10.3); Potassium 3.8 mmol/L (3.5-5.1)
[2024-02-23] MEDS: FUROSEMIDE 40 MG/4 ML VIAL IV ONE (08:28)
[2024-02-23] MEDS: MAGNESIUM OXIDE 400 MG TAB PO SCH (08:29)
--- NOTE | 2024-02-23 14:48 | Discharge Summary ---
Discharge Summary Date of Service February 23, 2024 Principal Dx & Hospital Course #1 = Principal Diagnosis (1) Acute diastolic CHF (congestive heart failure): echo 2019 with grade 2 diastolic dysfunction with preserved EF will repeat her echo today clinically & radiographically has acute CHF cont to improve w/ diuresis give 2 doses of lasix 20mg each today likely to need PO lasix at d/c for a few days (2) Calculus of distal left ureter: POD #2 s/p left ureteral stent placement due to obstructing, distal 5mm left- sided ureteral stone with mild hydronephrosis appreciate [facility] assistance discussed with pt's family that the stone was likely a big cause of her UTI/bacteremia cont IV rocephin (3) Bacteremia: 2nd to proteus UTI cont rocephin IV - day #8 in light of obstructing stone and needing stent placement will cont rocephin daily for total 14 days then possibly po keflex for prophylaxis until stent is removed (4) Sepsis: severe sepsis/bacteremia 2nd proteus (5) Urinary tract infection: see above discussion complicated, due to obstructing left-sided renal stone 5mm (6) Acute kidney injury: Cr at admission 2.39 now 0.87 resolved 2nd to severe sepsis/bacteremia 2nd to obstructing renal stone recheck BMP am (7) Dementia: advanced Continue donepezil (8) Diabetes mellitus: On metformin 500 mg daily at home BSGs controlled at this time with novolog SSI only previous a1c was <6.5% (9) HTN (hypertension): cont metoprolol cont to hold HCTZ (10) Elevated troponin: continue clopidogrel, metoprolol and simvastatin. elevated troponin related to myocardial demand ischemia, no evidence of acute coronary syndrome (11) Hypokalemia: repleted resolved cont K supplementation in light of diuresis (12) Acute metabolic encephalopathy: 2nd to sepsis/UTI mental status returning to baseline per her children Plan HLD- cont Simvastatin 40 mg RLS- cont Ropinirole 0.5 mg family updated at bedside this am once again appreciate urology assistance back to [facility] tomorrow if volume status acceptable? Admission HPI Per Admitting Provider Patient is a 88-year-old female presenting from [facility] secondary to ongoing fever and a recent fall out of her chair this a.m. Vitals were found to be hypotensive but tachycardic when EMS arrived. ED course: CBC- WBC 39.15 with left shift (35.55), H&H 11.8/35.6, lymphs 0.85, monocytes 1.98, immature granulocytes 0.67; CMP-BUN 47, creatinine 2.39, glucose 226; lactate 4.4; magnesium 1.6; troponin 1301.1; procalcitonin 75.9; UA shows turbid urine, 3+ protein, trace ketones, 3+ blood, 3+ leukocyte esterase, > 50 WBC, 11-20 RBC, > 20 hyaline cast, 4+ bacteria, presence of yeast; BioFire negative.; Chest x-ray without acute findings, head CT without acute findings.; EKG showing no ST elevation or depression. Patient is an 88-year-old female PMHx dementia, diabetes, hypertension, aortic stenosis, and chronic electrolyte disturbances presenting for ongoing fever x 3 days[address] Pt resides at [facility] and noted to have a worsening fever for the past 3 days with Tmax 103F the evening prior to arrival. Pt also reported to have fallen out of her chair on the day of arrival, leaving her with an abrasion on her L forehead and L knee. Pt is unable to provide a history due to dementia. Please see Dr. Padgett's attestation for adjustments/additions to treatment plan. Discharge Exam gen - resting comfortably in bed, NAD; no respiratory distress; smiled once neck - JVD improved mouth - MMM heart - RRR, s1 s2, 1/6 systolic murmur RUSB lungs - b/l rales L>R - but improving; mild tachypnea, mild retractions - resolved today abd - soft NT ND BS+ ext - no edema, pulses 2+ b/l psych - a/o x 1 Discharge Plan Discharge Items Patient Disposition: Transfer Intermediate Fac Reason For Visit: AMS, SEPSIS, UTI Discharge Diagnosis: Severe sepsis due to Proteus bacteremia from urinary tract infection Acute metabolic encephalopathy, CLARKE - both resolved Myocardial demand ischemia 5mm obstructing left-sided ureteral kidney stone s/p ureteral stent by [facility], Dr Estevan Lang Acute diastolic CHF - improved Moderate aortic stenosis on echo this admission Activity: Resume your previous activity Non-emergency contact: Primary Care Provider and Urologist Call non-emergency contact if: you have any medication questions, your symptoms worsen and you have a fever Follow-up/Referrals: Octaviano Vasquez CRNP [Primary Care Provider] - Estevan Lang MD [Physician] - (7-10 days with [facility] for L stent management and stone management ) Diet: Carb Consistent or DM2 Diet Comment: Minced & moist texture Addtl Attending Provider Instructions: Ms Allen was hospitalized for Proteus UTI and Proteus bacteremia. CT scan of the abdomen/pelvis showed a 5mm distal left ureteral kidney stone causing mild hydronephrosis. On 02/20/24 she underwent left-sided ureteral stent placement by Dr Estevan Lang, [facility]. The stone was not removed. She will need follow-up with Urology for stent & stone management. Later in the stay she had volume overload from acute diastolic CHF. She received IV lasix for diuresis. Her volume status improved significantly prior to discharge. Recommendations - 1. 6 more days of IV rocephin 2 grams daily via u/s-guided IV. First dose 02/23/24. IV can be removed after the 6-day course. 2. AFTER completion of the IV rocephin course take amoxicillin-clavulanate 500mg once daily x 7 days while awaiting definitive stone & stent management by urology. Start the amoxicillin-clavulanate on 02/29/24. 3. check blood sugars twice daily. Of note - Ms Allen has NOT required any diabetes medicine (pills or insulin) while here. She should be able to control sugars with diet alone. 4. furosemide 20mg orally daily x 3 days starting 02/24/24 then discontinue. 5. recheck BMP and magnesium level in 5 days for stability. It was our pleasure caring for Ms Allen! Pending Studies at Discharge: No Stand-Alone Forms: My [facility] Skilled Items Patient informed of condition?: Yes DNR: Yes Discharge Level of Care: Skilled Communicable Disease: No Discharge Prognosis: Stable Lines: None and US Guided Peripheral IV Urinary Catheter: No Medications and DC Order Prescriptions: New pantoprazole 40 mg Tablet,Delayed Release (Dr/Ec) 40 mg PO QAM Qty: 30 1RF ceftriaxone 2 gram recon soln 2 g IV DAILY 6 Days Qty: 6 0RF Rx Instructions: first dose on 02/23/24; final dose on 02/28/24. amoxicillin-pot clavulanate [Augmentin] 500-125 mg tablet 1 tab PO DAILY 7 Days Qty: 7 0RF Rx Instructions: START on 02/29/24. Saccharomyces boulardii 250 mg capsule 250 mg PO DAILY 14 Days Qty: 14 0RF furosemide [Lasix] 20 mg tablet 20 mg PO DAILY 3 Days Qty: 3 0RF Rx Instructions: take AM of 02/23, 02/24, and 02/25 then stop. potassium chloride 20 mEq tablet,ER particles/crystals 20 meq PO DAILY Qty: 30 0RF Continued metoprolol tartrate 25 mg tablet 12.5 mg PO BID Qty: 90 1RF ropinirole 0.5 mg tablet 0.5 mg PO HS Qty: 90 1RF Rx Instructions: Take 1 tablet by mouth 1 hour before bed daily cyanocobalamin (vitamin B-12) 1,000 mcg capsule 1,000 mcg PO DAILY Qty: 30 0RF simvastatin 40 mg tablet 40 mg PO HS Qty: 90 3RF acetaminophen 500 mg capsule 500 mg PO Q8H PRN (Reason: fever / fever) Qty: 90 2RF donepezil 10 mg tablet 10 mg PO HS omega-3 fatty acids [Fish Oil Concentrate] 1,000 mg capsule 2,000 mg PO DAILY cholecalciferol (vitamin D3) 1,000 unit capsule 1,000 units PO DAILY clopidogrel [Plavix] 75 mg tablet 75 mg PO DAILY Qty: 30 2RF Discontinued metformin 500 mg tablet,ER rosaura.retention 24 hr 500 mg PO DAILY Qty: 90 3RF potassium chloride [Klor-Con M20] 20 mEq tablet,ER particles/crystals 40 meq PO DAILY hydrochlorothiazide 25 mg tablet 50 mg PO DAILY Qty: 90 1RF Discharge Orders: Discharge Order (Routine); Ordered 02/23/24 Ordered By: Fritz Roach Admission Data Admit Date/Time: 02/15/24 18:06 Attending Provider: Fritz Roach Admit Provider: Fritz Padgett Primary Care Provider: Octaviano Vasquez Other Providers: Zeferino Benavides; Fritz Padgett; Anuj Mak Hospital Stay Data Consultations 02/15/24 17:00 ED Decision to Admit Stat 02/19/24 15:17 Consult Urology Routine Procedures Performed Operation Date: 02/20/24 07:00 Actual Procedures p Cystoscopy, Left Ureteral Stent Placement(Left) - Estevan Lang MD Diagnostic Imagining Performed 02/15/24 14:32 CT head/brain wo con Stat 02/18/24 07:35 US Renal Bladder [US renal/blad retro comp] Urgent 02/19/24 11:12 CT stones [CT abd pelvis wo con] Urgent 02/20/24 FL retrograde includes kub Routine Pending Results Patient Have Any Pending Studies at Discharge: No Discharge Instructions Given to Patient (Per Discharging Provider) Ms Allen was hospitalized for Proteus UTI and Proteus bacteremia. CT scan of the abdomen/pelvis showed a 5mm distal left ureteral kidney stone causing mild hydronephrosis. On 02/20/24 she underwent left-sided ureteral stent placement by Dr Estevan Lang, [facility]. The stone was not removed. She will need follow-up with Urology for stent & stone management. Later in the stay she had volume overload from acute diastolic CHF. She received IV lasix for diuresis. Her volume status improved significantly prior to discharge. Recommendations - 1. 6 more days of IV rocephin 2 grams daily via u/s-guided IV. First dose 02/23/24. IV can be removed after the 6-day course. 2. AFTER completion of the IV rocephin course take amoxicillin-clavulanate 500mg once daily x 7 days while awaiting definitive stone & stent management by urology. Start the amoxicillin-clavulanate on 02/29/24. 3. check blood sugars twice daily. Of note - Ms Allen has NOT required any diabetes medicine (pills or insulin) while here. She should be able to control sugars with diet alone. 4. furosemide 20mg orally daily x 3 days starting 02/24/24 then discontinue. 5. recheck BMP and magnesium level in 5 days for stability. It was our pleasure caring for Ms Allen! Coding Diagnoses Acute diastolic CHF (congestive heart failure) I50.31 Calculus of distal left ureter N20.1 Bacteremia R78.81 Sepsis A41.9 Urinary tract infection N39.0 Acute kidney injury N17.9 Dementia F03.90 Diabetes mellitus E11.9 Essential hypertension I10 Hypertension type: essential hypertension Elevated troponin R79.89 Hypokalemia E87.6 Acute metabolic encephalopathy G93.41
[2024-02-23 15:12] VITALS: PULSE 70; RESP 19; TEMP 97.5; O2SAT 92
[2024-02-23 17:37] VITALS: BP 145/65
== END 2024-02-23 17:36 | DRG 853 ==
LOC: ED 14:08 → SUATTDRO 18:06 → 4W 18:06
DX: Z78.1 Physical restraint status; Z66 Do not resuscitate; I95.9 Hypotension, unspecified; N13.6 Pyonephrosis; G93.41 Metabolic encephalopathy; E11.9 Type 2 diabetes mellitus without complications; E83.42 Hypomagnesemia; Z88.8 Allergy status to other drugs, medicaments and biological substances; A41.59 Other Gram-negative sepsis; R65.20 Severe sepsis without septic shock; Z11.52 Encounter for screening for COVID-19; Z79.899 Other long term (current) drug therapy; F03.C11 Unspecified dementia, severe, with agitation; I50.31 Acute diastolic (congestive) heart failure; E87.20 Acidosis, unspecified; E78.5 Hyperlipidemia, unspecified; Z79.02 Long term (current) use of antithrombotics/antiplatelets; G25.81 Restless legs syndrome; I24.89 Other forms of acute ischemic heart disease; N17.9 Acute kidney failure, unspecified; Z79.84 Long term (current) use of oral hypoglycemic drugs; I48.91 Unspecified atrial fibrillation; N13.8 Other obstructive and reflux uropathy; E87.6 Hypokalemia; I11.0 Hypertensive heart disease with heart failure; I35.0 Nonrheumatic aortic (valve) stenosis